=== PATIENT | female | born 1945 | race Caucasian/White ===

== ENCOUNTER 2017-04-27 08:32 | Inpatient (IN) | payer BC, OTHER ==
[2017-04-27] VITALS (7 sets, daily range): BP systolic 136–167; BP diastolic 68–81; PULSE 88–102; TEMP 36.4–37; O2SAT 98–100; Ht 157.5 cm; Wt 60.7 kg
[~2017-04-27] VITALS: Ht 157.5 cm; Wt 60.7 kg
[~2017-04-27 08:32] MED LIST: ASCO-63 PO; ASPEC81 PO; CALC500C70 PO; LEVO75TA5 PO; LOSA100T26 PO; LPT20 PO; MULT-223 PO; OMEG10007 PO; OMEP20CA59 PO; RANI300T2 PO
[2017-04-27] MEDS ORDERED: FEXO1TAB54 PO (08:55)
[2017-04-27] MEDS ORDERED: MoRPHine SULFATE 4 MG/ML 1 ML CARP\\VIAL IV STA ×2 (09:06→11:32)
[2017-04-27] MEDS ORDERED: ONDANSETRON INJ 2 MG/ML 2 ML VIAL IV STA (09:06)
[2017-04-27 10:00] LABS: BASO % 0.3 %; BASO ABS # 0.02 K/uL (0-0.2); COMPLETE YES; EOS % 1.7 %; IG% 0.1 %; LYMPH % 18.9 %; LYMPH ABS # 1.32 K/uL (1.2-3.4); MEAN CELL VOLUME 97.9 fL (80-100); MEAN CORPUSCULAR HEMOGLOBIN 33.3 pg (25-34); MEAN PLATELET VOLUME 10.9 fL (7.4-10.4); MONO % 8.9 %; NEUT % 70.1 %; PLATELET COUNT 198 K/uL (130-400); RED BLOOD COUNT 4.39 M/uL (4.2-5.4); WHITE BLOOD COUNT 6.97 K/uL (4.8-10.8)
[2017-04-27 10:06] LABS: URINE APPEARANCE CLEAR (CLEAR); URINE BILIRUBIN NEG (NEG); URINE COLOR YELLOW; URINE NITRITE NEG (NEG); URINE PH 8.5 (4.5-7.5); UROBILINOGEN NEG (NEG); ZZURINE CULT IF INDIC CATH NO
[2017-04-27 10:07] LABS: BUN/CREATININE RATIO 23.2 (10-20); CALCIUM 9.7 mg/dl (8.5-10.1); CREATININE 1.1 mg/dl (0.60-1.20); POTASSIUM 3.3 mmol/L (3.5-5.1)
[2017-04-27 10:08] LABS: PROTHROMBIN TIME (PATIENT) 10.3 SECONDS (9.0-12.0)
[2017-04-27 10:09] LABS: MANUAL MICROSCOPIC REQUIRED? NO; REVIEW REQ? NO
--- NOTE | 2017-04-27 10:32 | DIAGNOSTIC IMAGING REPORT ---
RIGHT PELVIS/UNILATERAL HIP 2-3VIEWS CLINICAL HISTORY: 71 years-old Female presenting with FALL, RIGHT HIP PAIN Right. TECHNIQUE: Single frontal view of the pelvis and frontal and crosstable lateral views of the right hip were obtained. COMPARISON: None. FINDINGS: 3 lag screw fixation of the left femoral neck. Deformity of the right femoral neck with evidence of a displaced subcapital fracture. The distal fracture fragment is displaced 10 mm anteriorly relative to the femoral head, which remains congruent within the acetabulum. There is also suggestion of impaction of the fracture site. Degenerative changes of the sacroiliac joints. Moderate stool burden. IMPRESSION: Subcapital right femoral neck fracture with displacement and impaction. Electronically signed by: Eyad Cary M.D. 04/27/2017 10:30 AM Dictated Date/Time: 04/27/2017 10:28 AM
--- NOTE | 2017-04-27 10:33 | DIAGNOSTIC IMAGING REPORT ---
CHEST ONE VIEW PORTABLE CLINICAL HISTORY: 71 years-old Female presenting with PREOP R HIP FX. TECHNIQUE: Portable supine AP view of the chest was obtained. COMPARISON: 07/31/2016. FINDINGS: Atherosclerosis of aortic arch. Cardiac silhouette normal in size. Lungs and pleural spaces clear. Degenerative changes of the thoracic spine. Upper abdomen normal. IMPRESSION: 1. No acute cardiopulmonary disease. Electronically signed by: Eyad Cary M.D. 04/27/2017 10:31 AM Dictated Date/Time: 04/27/2017 10:31 AM
--- NOTE | 2017-04-27 10:44 | EMERGENCY ROOM VISIT NOTE ---
History First contact with patient: 08:49 Chief Complaint: HIP PAIN Stated Complaint: R-HIP PAIN History of Present Illness Patient is a 71-year-old white female who presents to the emergency department by BLS ambulance for evaluation of right hip pain after a fall. Patient reports that she tripped, fell down one step, landing on her right hip on a hardwood floor. She had immediate onset of pain in her right hip. She tried to get up but was unable to, ambulance was summoned. She complains of pain in the right hip, that radiates slightly down her thighs. She rates her discomfort a 9/10. She denies any other injuries related to a fall. She did not strike her head or lose consciousness. She denies any chest or rib pain. She reports fall was purely mechanical in nature, she denies any chest pain, palpitations or shortness of breath, she reports that she was feeling well and in her usual state of health prior to the fall. She reports a remote history of a left hip fracture. Review of Systems Review of systems as per HPI. All other systems reviewed were negative. 10 systems reviewed. Past Medical/Surgical History Medical Problems: (1) CVA (cerebral vascular accident) (2) Dyslipidemia (3) Essential (Primary) Hypertension (4) GERD (gastroesophageal reflux disease) (5) Hypothyroidism Nos (6) Stroke-like symptoms Surgical Problems: (1) Status post hip surgery Electronic medical records are reviewed and summarized as above/below. See Problem List. Family History Patient reports no known family medical history. Social History Smoking Status: Never Smoker Marital Status: Housing Status: lives with significant other Occupation Status: retired Current/Historical Medications Scheduled Ascorbic Acid (Vitamin C), 500 MG PO DAILY Aspirin (Aspirin EC Low Dose), 81 MG PO QAM Atorvastatin (Atorvastatin Calcium), 20 MG PO QAM Calcium/Vitamin D (Os-Byron 500 Plus D), 1 TAB PO BID Fexofenadine Hcl (Leslye Allergy), 1 TAB PO DAILY Fish Oil ([place]-3), 1 CAP PO BID Hctz/Losartan (Hyzaar 12.5MG/100MG), 0.5 TAB PO BID Levothyroxine Sodium (Levothyroxine Sodium), 75 MCG PO DAILY Physical Exam Vital Signs Date Time Temp Pulse Resp B/P (MAP) Pulse Ox O2 Delivery O2 Flow Rate FiO2 04/27/17 10:58 173/94 04/27/17 10:57 89 14 04/27/17 10:52 86 13 04/27/17 10:47 90 12 04/27/17 10:42 89 28 04/27/17 10:37 91 22 04/27/17 10:32 92 17 04/27/17 10:27 96 17 04/27/17 10:24 173/94 04/27/17 09:57 93 16 96 04/27/17 09:52 90 20 95 04/27/17 09:50 90 16 192/100 96 04/27/17 09:49 87 04/27/17 09:46 192/100 04/27/17 08:45 199/104 04/27/17 08:42 36.7 89 16 211/107 97 Room Air Physical Exam GENERAL: Patient is an uncomfortable appearing 71-year-old white female who is awake and alert and in moderate distress due to her right hip pain. HEENT: Head - normocephalic and atraumatic. Pupils are equal, round, and reactive to light. Extraocular eye muscles are intact and sclera are anicteric. Ears - bilaterally patent canals with no evidence of hemotympanum. Mouth - moist buccal mucosa with no trauma to the teeth or signs of malocclusion. Neck: The neck is supple and there is no pain to palpation over the posterior cervical spine and no obvious step-offs or deformities. There is no JVD or tracheal deviation. Chest: There are no signs of deformities, contusions or abrasions to the chest wall. There is no obvious crepitus or paradoxical chest rise. Heart: Regular rate, and regular rhythm. Lungs: Breath sounds equal and clear to auscultation without wheezes, rales, or rhonchi heard. Abdomen: Soft, completely nontender, nondistended, with good bowel sounds. There is no sign of trauma such as contusions, abrasions or penetrations. There are no palpable pulsatile masses or hepatosplenomegaly. There is no guarding, rigidity, or rebound noted. Extremities: Examination of the right hip shows the patient resting with the right hip and knee flexed, right leg is supported on a pillow. She has some tenderness over the greater trochanter and the right groin. When able to fully extend the leg, the right leg is slightly shortened. The right lower extremity is neurovascularly intact. No other obvious trauma, deformities, contusions, or edema. There are easily palpable peripheral pulses. Neuro: The patient is awake and alert and easily able to follow commands. Muscle strength is 5 out of 5 3 extremities. Otherwise, neuro exam is unremarkable. Back: The entire thoracic, lumbar, and sacral spine were palpated. No discomfort over the thoracic spine and lumbar spine. There are no obvious step- offs or deformities noted. There are no obvious signs of trauma such as contusions abrasions penetrations noted to the back. Medical Decision & Procedures ER Provider Diagnostic Interpretation: RIGHT PELVIS/UNILATERAL HIP 2-3VIEWS CLINICAL HISTORY: 71 years-old Female presenting with FALL, RIGHT HIP PAIN Right. TECHNIQUE: Single frontal view of the pelvis and frontal and crosstable lateral views of the right hip were obtained. COMPARISON: None. FINDINGS: 3 lag screw fixation of the left femoral neck. Deformity of the right femoral neck with evidence of a displaced subcapital fracture. The distal fracture fragment is displaced 10 mm anteriorly relative to the femoral head, which remains congruent within the acetabulum. There is also suggestion of impaction of the fracture site. Degenerative changes of the sacroiliac joints. Moderate stool burden. IMPRESSION: Subcapital right femoral neck fracture with displacement and impaction. CHEST ONE VIEW PORTABLE CLINICAL HISTORY: 71 years-old Female presenting with PREOP R HIP FX. TECHNIQUE: Portable supine AP view of the chest was obtained. COMPARISON: 07/31/2016. FINDINGS: Atherosclerosis of aortic arch. Cardiac silhouette normal in size. Lungs and pleural spaces clear. Degenerative changes of the thoracic spine. Upper abdomen normal. IMPRESSION: 1. No acute cardiopulmonary disease. Laboratory Results 04/27/17 09:35 Red Blood Count 4.39, Mean Corpuscular Volume 97.9, Mean Corpuscular Hemoglobin 33.3, Mean Corpuscular Hemoglobin Concent 34.0, Mean Platelet Volume 10.9, Neutrophils (%) (Auto) 70.1, Lymphocytes (%) (Auto) 18.9, Monocytes (%) (Auto) 8.9, Eosinophils (%) (Auto) 1.7, Basophils (%) (Auto) 0.3, Neutrophils # (Auto) 4.88, Lymphocytes # (Auto) 1.32, Monocytes # (Auto) 0.62, Eosinophils # (Auto) 0.12, Basophils # (Auto) 0.02 04/27/17 09:35 Test 04/27/17 09:15 04/27/17 09:35 Urine Color YELLOW Urine Appearance CLEAR (CLEAR) Urine pH 8.5 (4.5-7.5) Urine Specific [place] 1.010 (1.000-1.030) Urine Protein NEG (NEG) Urine Glucose (UA) NEG (NEG) Urine Ketones NEG (NEG) Urine Occult Blood NEG (NEG) Urine Nitrite NEG (NEG) Urine Bilirubin NEG (NEG) Urine Urobilinogen NEG (NEG) Urine Leukocyte Esterase NEG (NEG) White Blood Count 6.97 K/uL (4.8-10.8) Red Blood Count 4.39 M/uL (4.2-5.4) Hemoglobin 14.6 g/dL (12.0-16.0) Hematocrit 43.0 % (37-47) Mean Corpuscular Volume 97.9 fL (80-100) Mean Corpuscular Hemoglobin 33.3 pg (25-34) Mean Corpuscular Hemoglobin Concent 34.0 g/dl (32-36) Platelet Count 198 K/uL (130-400) Mean Platelet Volume 10.9 fL (7.4-10.4) Neutrophils (%) (Auto) 70.1 % Lymphocytes (%) (Auto) 18.9 % Monocytes (%) (Auto) 8.9 % Eosinophils (%) (Auto) 1.7 % Basophils (%) (Auto) 0.3 % Neutrophils # (Auto) 4.88 K/uL (1.4-6.5) Lymphocytes # (Auto) 1.32 K/uL (1.2-3.4) Monocytes # (Auto) 0.62 K/uL (0.11-0.59) Eosinophils # (Auto) 0.12 K/uL (0-0.5) Basophils # (Auto) 0.02 K/uL (0-0.2) RDW Standard Deviation 45.1 fL (36.4-46.3) RDW Coefficient of Variation 12.5 % (11.5-14.5) Immature Granulocyte % (Auto) 0.1 % Immature Granulocyte # (Auto) 0.01 K/uL (0.00-0.02) Prothrombin Time 10.3 SECONDS (9.0-12.0) Prothromb Time International Ratio 1.0 (0.9-1.1) Activated Partial Thromboplast Time 26.2 SECONDS (21.0-31.0) Partial Thromboplastin Ratio 1.0 Anion Gap 6.0 mmol/L (3-11) Est Creatinine Clear Calc Drug Dose 39.1 ml/min Estimated GFR () 57.7 Estimated GFR (Non- 49.8 BUN/Creatinine Ratio 23.2 (10-20) Calcium Level 9.7 mg/dl (8.5-10.1) Medications Administered Medications (Trade) Dose Ordered Sig/Migdalia Route Start Time Stop Time Status Last Admin Dose Admin Ondansetron HCl (Zofran Inj) 4 mg NOW STAT IV 04/27/17 09:06 04/27/17 09:09 DC 04/27/17 09:51 4 MG Morphine Sulfate (MoRPHine SULFATE INJ) 4 mg NOW STAT IV 04/27/17 09:06 04/27/17 09:09 DC 04/27/17 09:51 4 MG ED Course The patient was seen and assessed as above. Her old records were reviewed. IV lock was initiated. Laboratory studies were collected. She was medicated with Zofran 4 mg and morphine 4 mg IV for pain with good relief. X-rays of the right hip and pelvis were obtained, findings are consistent with a slightly displaced, impacted subcapital right femoral neck fracture. Patient was reviewed with attending physician. Consultation was placed with the [place] Hospitalist service for admission, Dr. Khan. Patient was also reviewed with orthopedic surgery on-call, Dr. Newton. The patient was medically cleared, and felt to be stable for surgery. The patient will be taken to the OR per orthopedics later today. The patient did receive an additional dose of morphine 4 mg IV for increased pain prior to admission. Medical Decision Patient is a 71-year-old white female who sustained a mechanical fall resulting in a right hip fracture. Differential diagnoses included hip versus pelvic fracture, hip dislocation, femur fracture, contusion, among others. Medication Reconcilliation Current Medication List: was personally reviewed by me Blood Pressure Screening Patient's blood pressure: Elevated blood pressure Blood pressure disposition: Elevated BP felt to be situational Impression Primary Impression: Subcapital fracture of right hip Departure Information Referrals Jose Guadalupe Collins M.D. (PCP) Patient Instructions My [facility] Problem Qualifiers Primary Impression: Subcapital fracture of right hip Encounter type: initial encounter Fracture type: closed Qualified Codes: S72.011A - Unspecified intracapsular fracture of right femur, initial encounter for closed fracture
--- NOTE | 2017-04-27 10:46 | EMERGENCY ROOM VISIT NOTE ---
ED Visit Note First contact with patient: 08:49 HPI: right hip pain after fall. PE: AFVSS, NAD NC/AT RRR, no murmurs CTAB Abd soft NT/ND Ext: right hip pain, No obvious deformity or shortening. ROM limited 2/2 pain. Distal pms intact. Neuro: grossly intact Plan: right hip fx. Ortho consult. admit. I reviewed the patient's past medical history, medications, and visit nursing notes. I discussed the case with the physician residential real estate assistant, examined the patient, and agree with the findings and plan as documented in the physician assistants note.
[2017-04-27] MEDS ORDERED: MAGNESIUM HYDROXIDE SUSP 30 ML UDC PO PRN ×2 (11:15→15:45)
[2017-04-27] MEDS ORDERED: ONDANSETRON INJ 2 MG/ML 2 ML VIAL IV PRN ×2 (11:15→16:00)
[2017-04-27] MEDS ORDERED: ACETAMINOPHEN 325 MG TAB PO PRN (11:15)
--- NOTE | 2017-04-27 11:20 | History and Physical ---
History & Physical Date & Time of Service: Apr 27, 2017 at 11:10 Chief Complaint: R-Hip Pain Primary Care Physician: Jose Guadalupe Collins M.D. History of Present Illness Source: patient 71 y/o F c/o R hip pain. Pt states she was having a completely usual day for herself when she missed a step and fell. She states this was purely a mechanical fall. She had no lightheadedness, dizziness, changes in vision or orientation prior to this fall. She states she has felt in her usual health the last few days and has been eating well. Pt denies fever, SOB, chest pain, abd pain, n/v/c/d, LE swelling. Pt states she generally has no issues with walking and can walk a flight of stairs without issue. Pt takes daily aspirin s/p TIA last year, but has not taken it yet today. Her last dose was yesterday. Pt has not taken her AM BP medication either. Pt has not eaten yet today. Past Medical/Surgical History Hx of TIA, on aspirin HTN Hypothyroid Hyperlipidemia Pre-DM, no medications Allergies Family History Patient reports no known family medical history. Father: [place] Mother: CVA, ESRD Social History Smoking Status: Never Smoker Alcohol Use: none Drug Use: none Marital Status: Housing status: lives with family Occupational Status: retired Multi-Drug Resistant Organisms History of MDRO: No Allergies Coded Allergies: No Known Allergies (Verified , 04/27/17) Home Medications Scheduled Ascorbic Acid (Vitamin C), 500 MG PO DAILY Aspirin (Aspirin EC Low Dose), 81 MG PO QAM Atorvastatin (Atorvastatin Calcium), 20 MG PO QAM Calcium/Vitamin D (Os-Byron 500 Plus D), 1 TAB PO BID Fexofenadine Hcl (Leslye Allergy), 1 TAB PO DAILY Fish Oil ([place]-3), 1 CAP PO BID Hctz/Losartan (Hyzaar 12.5MG/100MG), 0.5 TAB PO BID Levothyroxine Sodium (Levothyroxine Sodium), 75 MCG PO DAILY Review of Systems Pertinent positives and negatives reviewed in HPI--all others negative Physical Exam Vital Signs Date Time Temp Pulse Resp B/P (MAP) Pulse Ox O2 Delivery O2 Flow Rate FiO2 04/27/17 10:58 173/94 04/27/17 10:57 89 14 04/27/17 10:52 86 13 04/27/17 10:47 90 12 04/27/17 10:42 89 28 04/27/17 10:37 91 22 04/27/17 10:32 92 17 04/27/17 10:27 96 17 04/27/17 10:24 173/94 04/27/17 09:57 93 16 96 04/27/17 09:52 90 20 95 04/27/17 09:50 90 16 192/100 96 04/27/17 09:49 87 04/27/17 09:46 192/100 04/27/17 08:45 199/104 04/27/17 08:42 36.7 89 16 211/107 97 Room Air General Appearance: WD/WN, no apparent distress Head: normocephalic, atraumatic Eyes: normal inspection, EOMI ENT: hearing grossly normal Neck: supple Respiratory/Chest: normal breath sounds, no respiratory distress Cardiovascular: regular rate, rhythm, no edema Abdomen/GI: non tender, soft Extremities/Musculoskelatal: no calf tenderness, no pedal edema Neurologic/Psych: alert, normal mood/affect, oriented x 3 Skin: normal color, warm/dry Diagnostics Laboratory Results Results Past 24 Hours Test 04/27/17 09:15 04/27/17 09:35 Range/Units Urine Color YELLOW Urine Appearance CLEAR CLEAR Urine pH 8.5 4.5-7.5 Urine Specific [place] 1.010 1.000-1.030 Urine Protein NEG NEG Urine Glucose (UA) NEG NEG Urine Ketones NEG NEG Urine Occult Blood NEG NEG Urine Nitrite NEG NEG Urine Bilirubin NEG NEG Urine Urobilinogen NEG NEG Urine Leukocyte Esterase NEG NEG White Blood Count 6.97 4.8-10.8 K/uL Red Blood Count 4.39 4.2-5.4 M/uL Hemoglobin 14.6 12.0-16.0 g/dL Hematocrit 43.0 37-47 % Mean Corpuscular Volume 97.9 80-100 fL Mean Corpuscular Hemoglobin 33.3 25-34 pg Mean Corpuscular Hemoglobin Concent 34.0 32-36 g/dl Platelet Count 198 130-400 K/uL Mean Platelet Volume 10.9 7.4-10.4 fL Neutrophils (%) (Auto) 70.1 % Lymphocytes (%) (Auto) 18.9 % Monocytes (%) (Auto) 8.9 % Eosinophils (%) (Auto) 1.7 % Basophils (%) (Auto) 0.3 % Neutrophils # (Auto) 4.88 1.4-6.5 K/uL Lymphocytes # (Auto) 1.32 1.2-3.4 K/uL Monocytes # (Auto) 0.62 0.11-0.59 K/uL Eosinophils # (Auto) 0.12 0-0.5 K/uL Basophils # (Auto) 0.02 0-0.2 K/uL RDW Standard Deviation 45.1 36.4-46.3 fL RDW Coefficient of Variation 12.5 11.5-14.5 % Immature Granulocyte % (Auto) 0.1 % Immature Granulocyte # (Auto) 0.01 0.00-0.02 K/uL Prothrombin Time 10.3 9.0-12.0 SECONDS Prothromb Time International Ratio 1.0 0.9-1.1 Activated Partial Thromboplast Time 26.2 21.0-31.0 SECONDS Partial Thromboplastin Ratio 1.0 Sodium Level 140 136-145 mmol/L Potassium Level 3.3 3.5-5.1 mmol/L Chloride Level 104 98-107 mmol/L Carbon Dioxide Level 30 21-32 mmol/L Anion Gap 6.0 3-11 mmol/L Blood Urea Nitrogen 26 7-18 mg/dl Creatinine 1.10 0.60-1.20 mg/dl Est Creatinine Clear Calc Drug Dose 39.1 ml/min Estimated GFR () 57.7 Estimated GFR (Non- 49.8 BUN/Creatinine Ratio 23.2 10-20 Random Glucose 113 70-99 mg/dl Calcium Level 9.7 8.5-10.1 mg/dl Diagnostic Radiology Hip/pelvis XR: IMPRESSION: Subcapital right femoral neck fracture with displacement and impaction. CXR normal EKG Incomplete RBBB, seen as far back as at least 2008 on prior EKG Impression Assessment and Plan 71 y/o F who was admitted on 04/27 for R hip fracture s/p mechanical fall. R hip fracture: as per ortho Last aspirin dose was 04/26, will hold this Holding fish oil as well Last PO was yesterday Ortho to be made aware of this Will hold diet for now so that pt can be taken to OR if able Fall: mechanical PT/OT after OR HTN: Labile in the setting of pain and had not taken AM medication Give losartan now and monitor EKG: incomplete RBBB, seen on prior EKG HypoK: Replace and monitor Hx of TIA: holding aspirin as above Restart per ortho Hyperlipidemia: continue home meds Hypothyroid: continue home meds Other: Full code NPO until known OR status DVT proph as per ortho Level of Care Med/Surg Advanced Directives Existing Living Will: Yes Resuscitation Status FULL RESUSCITATION VTE Prophylaxis VTE Risk Assessment Done? Y/N: Yes Risk Level: Low
--- NOTE | 2017-04-27 12:25 | ORTHOPEDIC CONSULTATION ---
DATE OF ADMISSION: 04/27/2017 CHIEF COMPLAINT: Right hip pain. HISTORY OF PRESENT ILLNESS: The patient is a 71-year-old female with history of TIAs in the past, who sustained a mechanical fall earlier today. She was at [employer] when she made a misstep and she fell to the ground. She had acute onset of pain and was unable to ambulate. She was brought to the Emergency Room. X-rays revealed displaced femoral neck fracture. She was seen and admitted by the hospitalist service and we were consulted for treatment. She has no preexisting hip pain. She does have a history of TIAs without sequelae. She also has a history of a left hip fracture fixed 17 years ago, she thinks by Dr. Kumar. Denies any other injuries. No head injury, no loss of consciousness, and no neck pain. She does take aspirin for TIA. PAST MEDICAL HISTORY: Past medical history significant for, 1. Hypertension. 2. Elevated cholesterol. 3. Hypothyroidism. 4. History of TIA in the past without sequelae. 5. Prediabetes. PAST SURGICAL HISTORY: Include: 1. Left hip fracture fixed 17 years ago. 2. Multiple foot surgeries. 3. D&C. ALLERGIES: No known drug allergies. CURRENT MEDICINES: Include, 1. Vitamin C. 2. Baby aspirin. 3. Atorvastatin. 4. Calcium with D. 5. Leslye. 6. Fish oil. 7. Hyzaar. 8. Levothyroxine. Remainder of the history is per the admission H&P. PHYSICAL EXAMINATION: GENERAL: Shows a pleasant, healthy, thin appearing elderly female. She is in the ER with her 2 daughters. VITAL SIGNS: Temperature of 36.7. Vital signs are stable. Blood pressure is slightly elevated at 155/90. HEENT: Benign. NECK: Supple. No lymphadenopathy. LUNGS: Clear to auscultation. HEART: Regular rate and rhythm. ABDOMEN: Soft, nontender, and nondistended. EXTREMITIES: Grossly neurovascularly intact except as follows. General musculoskeletal exam reveals painless range of motion of the cervical and thoracic and lumbar spine. She had full painless range of motion of both shoulders, wrists, elbows, hands and left leg. Examination of the right leg reveals her leg to be slightly shortened. This is really not malrotated. She has got hold it in a slightly flexed position. Any pain causes significant pain. She has no knee effusion. No abrasions. She can dorsiflex and plantarflex her foot appropriately. X-RAYS: X-rays of the right hip were reviewed. It shows a right displaced femoral neck fracture. She has got no signs of significant hip arthritis. She does have a screw fixation of the left hip. The fracture is displaced. ASSESSMENT: A 71-year-old female, independent ambulator with a right displaced femoral neck fracture. No preexisting hip arthritis. PLAN: We talked about treatment options. We are going to take her to the operating room and do a right cemented bipolar hip arthroplasty. The risks and benefits of this procedure were explained to the patient to include, but not limited to DVT, PE, , infection, neurological injury, vascular injury, bleeding problem, pain, limited range of motion, stiffness, failure to relief her symptoms, incomplete relief of symptoms, need for further surgery in the future, fracture, leg length inequality, nerve palsy, dislocation, need for blood transfusion, etc. The patient and family understand and desire to proceed. Informed consent was obtained. We will plan on DVT prophylaxis including thigh-high TEDs, SCDs, and probably increase her dose of aspirin postoperatively. We will hold her aspirin for now. She has been seen by the medicine service and cleared. We will plan on doing this later on this afternoon if possible.
[2017-04-27] MEDS ORDERED: BACITRACIN 50000 UNIT VIAL ONE (13:00)
[2017-04-27] MEDS ORDERED: BUPIVACAINE/EPINEPHRINE 0.5% MPF 1:200,000 30 ML VIAL ONE (13:00)
[2017-04-27] MEDS ORDERED: THROMBIN FOR SOLN 20000 UNIT KIT ONE (13:00)
[2017-04-27] MEDS ORDERED: LOSARTAN POTASSIUM 50 MG TAB PO ONE (13:00)
[2017-04-27] MEDS: HYDROCHLOROTHIAZIDE 25 MG TAB PO SCH ×2 (13:04→20:33)
[2017-04-27] MEDS ORDERED: MIDAZOLAM HCL 1 MG/ML 2ML VIAL ONE ×2 (13:32)
[2017-04-27] MEDS ORDERED: PNEUMOCOCCAL POLYSACCHARIDES 25 MCG/0.5 ML VIAL/SYR IM. ONE (14:15)
[2017-04-27] MEDS ORDERED: PNEUMOCOCCAL ADMINISTRATION CHARGE ONE (14:15)
[2017-04-27] MEDS ORDERED: PROPOFOL IV EMULSION 10 MG/ML 20 ML VIAL IV ONE (14:26)
--- NOTE | 2017-04-27 15:40 | [facility] Post Operative Brief Note ---
Immediate Operative Summary Operative Date Apr 27, 2017. Pre-Operative Diagnosis right displaced femoral neck fracture Post-Operative Diagnosis right displaced femoral neck fracture Procedure(s) Performed Right hip bi-polar arthroplasty; cemented Surgeon Dr. Eugene Newton Development Technical Lead Surgeon(s) Floyd Lopez PA-C Estimated Blood Loss 300 ML Findings Right femoral neck fracture - displaced Fluids (cc crystalloids) 1300 cc Specimens a. right femoral head Drains None Anesthesia Spinal Complication(s) None Disposition Recovery Room / PACU
[2017-04-27] MEDS ORDERED: BISACODYL 10 MG SUPP PR PRN (15:45)
--- NOTE | 2017-04-27 15:54 | Anesthesiology Progress Note ---
Anesthesia Post Op Note Date & Time Apr 27, 2017 at 15:53 Vital Signs Pain Intensity: 9.0 Vital Signs Past 12 Hours Date Time Temp Pulse Resp B/P (MAP) Pulse Ox O2 Delivery O2 Flow Rate FiO2 04/27/17 12:35 36.8 98 16 136/81 Room Air 04/27/17 12:15 36.8 99 16 136/81 (99) Room Air 04/27/17 11:44 99 20 155/94 98 Room Air 04/27/17 10:58 173/94 04/27/17 10:57 89 14 04/27/17 10:52 86 13 04/27/17 10:47 90 12 04/27/17 10:42 89 28 04/27/17 10:37 91 22 04/27/17 10:32 92 17 04/27/17 10:27 96 17 04/27/17 10:24 173/94 04/27/17 09:57 93 16 96 04/27/17 09:52 90 20 95 04/27/17 09:50 90 16 192/100 96 04/27/17 09:49 87 04/27/17 09:46 192/100 04/27/17 08:45 199/104 04/27/17 08:42 36.7 89 16 211/107 97 Room Air Notes Mental Status: alert / awake / arousable, participated in evaluation Pt Amnestic to Procedure: Yes Nausea / Vomiting: adequately controlled Pain: adequately controlled Airway Patency, RR, SpO2: stable & adequate BP & HR: stable & adequate Hydration State: stable & adequate Neuraxial Anesthesia: was administered, sensory block is resolving Anesthetic Complications: no major complications apparent
[2017-04-27] MEDS ORDERED: EpHEDrine SULFATE INJ 50 MG/ML AMP IV PRN (16:00)
[2017-04-27] MEDS ORDERED: ATROPINE SULFATE 0.1 MG/ML 5ML SYR IV PRN (16:00)
[2017-04-27] MEDS ORDERED: FENTANYL CITRATE INJ 50 MCG/1 ML 2 ML VIAL IV PRN (16:00)
--- NOTE | 2017-04-27 16:22 | DIAGNOSTIC IMAGING REPORT ---
RIGHT HIP UNILATERAL 2 VIEWS CLINICAL HISTORY: 71 years-old Female presenting with Right Bipolar hip Right. TECHNIQUE: Frontal and crosstable lateral views of the right hip were obtained. COMPARISON: Plain radiographs from 04/27/2017 at 10:12 AM. FINDINGS: There has been interval total right hip arthroplasty for the subcapital right femoral neck fracture. No hardware complication, malalignment, or new fracture is evident. Expected soft tissue emphysema and overlying skin courtney. IMPRESSION: Expected postsurgical appearance status post total right hip arthroplasty. Electronically signed by: Eyad Cary M.D. 04/27/2017 4:20 PM Dictated Date/Time: 04/27/2017 4:19 PM
--- NOTE | 2017-04-27 17:10 | OPERATIVE REPORT ---
DATE OF OPERATION: 04/27/2017 SURGEON: Dr. Eugene Newton. RAIL SWITCHMAN: WILBERTO Vinson PREOPERATIVE DIAGNOSIS: Right displaced femoral neck fracture. POSTOPERATIVE DIAGNOSIS: Same. PROCEDURE PERFORMED: Right cemented bipolar hip arthroplasty. COMPLICATIONS: None. ESTIMATED BLOOD LOSS: 300 mL. FLUID REPLACEMENT: 1300 mL crystalloid fluid replacement. ANESTHESIA: Spinal. DRAINS: None. SPECIMENS: Right femoral head sent for pathology. OPERATIVE INDICATIONS: The patient is a 71-year-old female who sustained a mechanical fall while at [facility] this morning. She had no preexisting hip pain. She is an independent ambulator. She does have a history of some TIAs in the past with no sequelae. She was seen in the Emergency Room and diagnosed with a displaced femoral neck fracture. She is cleared by medicine service and indicated for surgical treatment. OPERATIVE IMPLANTS: Operative implants consisted of: 1. Biomet generation 4, size 9 polished femoral stem. 2. A 0/28 mm articular ball. 3. A 45-mm bipolar shell and liner. 4. A size 10 centralizer. 5. Small cement restrictor. OPERATIVE PROCEDURE: The patient was taken to the operating room, identified and placed on the operating table in the supine position. All contact areas were appropriately padded. IV antibiotics were provided by anesthesia team. A spinal anesthetic was implemented by anesthesia team. The patient was then placed in the left lateral decubitus position. An axillary roll was placed. Stulberg hip positioner was used for positioning. Right hip and leg were then prepped and draped in the usual sterile fashion. I did scrub the leg with Hibiclens before prepping with ChloraPrep. The right leg was then prepped and draped in the usual sterile fashion. A posterolateral approach to the right hip was then performed through a curvilinear incision centered over the greater trochanter. Sharp dissection was carried through the subcutaneous tissue down to the level of the IT band and gluteal fascia. The IT band and gluteal fascia were then incised longitudinally in line with the skin incision. The underlying greater trochanteric bursa was excised. The piriformis and external rotators were tagged and taken off the posterior aspect of the femur. Great care was taken throughout the procedure to protect the sciatic nerve at all times. A posterior capsulotomy was then performed leaving a flap for later repair. I tagged each side of the capsule. Hip was internally rotated. Femoral neck osteotomy cut was then made just below the base of the fracture. The remaining portion of the femoral neck as well as the femoral head were removed. The acetabulum was sized to a size 45. Attention was then drawn back to the femur. The proximal femur was entered with cookie cutter followed by canal finder and lateralizing reamer. We broached beginning with a size 7 and progressed to an 8. The femur was pretty small, so I trialed the knee. The trial really created appropriate soft tissue tension and leg lengths. It was fully stable in full extension and external rotation and flexion to 90 degrees and internal rotation to 50+ degrees. I then removed these implants. I then did broach up to a size 9, but could not quite get that down. Her femur was pretty small. I then irrigated it extensively. I did place a cement restrictor 14 cm down the canal. I then got out the implants. I did place them in the canal to make sure they fit and then I cleaned it and dried it off. A double batch of Palacos G cement was mixed. I then injected the canal with the cement and a size 9 polished standard offset femoral stem was placed with a 10 centralizer. Of note, the patient did have marked anteversion natively of the femoral neck and we put this directly in line with her normal anteversion. Once the cement hardened, a size 0/28-mm articular ball was placed followed by 45 bipolar shell and liner. The hip was located and again found to be stable. Attention was then drawn toward closing. The wound was injected with 30 mL of 0.5% Marcaine with epinephrine. The posterior capsule was then repaired with #2 Ti-Cron suture. The external rotators were repaired to the posterior aspect of the hip abductors with #2 Ti-Cron suture. The IT band and gluteal fascia were then closed with #1 PDS suture in running fashion. The subcutaneous tissues were then closed with 2 layers with the deep layer #1 Vicryl suture and the subcutaneous tissues with 2-0 Dexon suture in a buried interrupted fashion. The skin was then closed with skin courtney. The leg was then cleaned and dried and a sterile dressing composed of Xeroform, 4 x 4, ABD pad and foam tape was applied. The patient then transferred to the recovery room in stable condition. The patient tolerated the procedure well with no complications. All needle and sponge counts were correct at the end of the operation. I attest to the content of the Intraoperative Record and any orders documented therein. Any exception s are noted below.
[2017-04-27] MEDS ORDERED: NURSING VERBAL MED ORDER ONE (17:45)
[2017-04-27] MEDS ORDERED: POTASSIUM CHLORIDE INJ 10 MEQ in SODIUM CHLORIDE 0.9% 1000ML 1,000 ML IV SCH (18:00)
[2017-04-27] MEDS: CEFAZOLIN IV 1,000 MG in DEXTROSE 5% 50ML 50 ML IV SCH (20:30)
[2017-04-27] MEDS: LOSARTAN POTASSIUM 50 MG TAB PO SCH (20:34)
[2017-04-27] MEDS ORDERED: ASPIRIN/ALUM/MAGNES/CAL CARB 325 MG TAB PO SCH (21:00)
[2017-04-27] MEDS: POTASSIUM CHLORIDE 20 MEQ TABCR PO SCH (21:25)
[2017-04-27] MEDS: OXYCODONE HCL IR 5 MG TAB (IMMEDIATE RELEASE) PO PRN (21:28)
[2017-04-28] VITALS (9 sets, daily range): BP systolic 94–153; BP diastolic 59–82; PULSE 101–124; TEMP 36.8–38.1; O2SAT 95–100
[2017-04-28] MEDS: CEFAZOLIN IV 1,000 MG in DEXTROSE 5% 50ML 50 ML IV SCH (04:38)
[2017-04-28] MEDS: OXYCODONE HCL IR 5 MG TAB (IMMEDIATE RELEASE) PO PRN ×3 (04:39→10:42)
[2017-04-28 05:47] LABS: HEMATOCRIT 41.2 % (37-47); MEAN CORPUSCULAR HEMOGLOBIN 32.7 pg (25-34); MEAN PLATELET VOLUME 11.1 fL (7.4-10.4); PLATELET COUNT 160 K/uL (130-400); RED BLOOD COUNT 4.16 M/uL (4.2-5.4); WHITE BLOOD COUNT 11.96 K/uL (4.8-10.8)
[2017-04-28] MEDS: LEVOTHYROXINE 75 MCG TAB PO SCH (06:14)
[2017-04-28 06:18] LABS: BUN/CREATININE RATIO 17.2 (10-20); CREATININE 1.1 mg/dl (0.60-1.20); POTASSIUM 3.8 mmol/L (3.5-5.1)
[2017-04-28] MEDS ORDERED: NURSING VERBAL MED ORDER ONE (07:45)
--- NOTE | 2017-04-28 08:02 | PROGRESS NOTE ---
DATE: 04/28/2017 SUBJECTIVE: A 71-year-old female postop day 1 from right cemented bipolar hip arthroplasty for fracture. She is doing well. Hip is sore, but pain is controlled. Denies any chest pain or shortness of breath. Not feeling dizzy or lightheaded. No new aches or pains. OBJECTIVE: VITAL SIGNS: Temperature is 37.3. Vital signs stable. PHYSICAL EXAMINATION: GENERAL: Reveals a pleasant elderly female. Lying in bed and looks quite comfortable. She is awake, alert and oriented. EXTREMITIES: Examination of the right hip reveals leg lengths to be equal. Some mild thigh swelling. Dressing is clean, dry and intact. She can dorsiflex and plantarflex her foot appropriately. She is neurologically intact. LABORATORY DATA: Hemoglobin 13.6. Hematocrit 41.2. White cell count 11.96. Electrolytes are stable. ASSESSMENT: A 71-year-old female postop day 1 from right cemented bipolar hip arthroplasty for fracture. She is doing pretty well. Hip is located. She is neurologically intact. White cell count is slightly elevated, likely related to stress. No signs of infection. PLAN: 1. DVT prophylaxis including thigh-high TEDs, SCDs, and we are going to put on aspirin twice a day, especially with her history of TIA. 2. PT/OT. She can weightbear as tolerated. Right total hip protocol. 3. Pain control, doing pretty well with current pain regimen. 4. Medical management as per the medicine service. 5. Disposition: She is orthopedically stable and acceptable for discharge. She is wanting to go to rehabilitation and that could be done any time when medically stable. I need to see her back 2 weeks postop. Any orthopedic questions can be directed to me at [phone].
[2017-04-28] MEDS: HYDROCHLOROTHIAZIDE 25 MG TAB PO SCH ×2 (09:14→10:37)
[2017-04-28] MEDS: ATORVASTATIN 20 MG TAB PO SCH ×2 (09:15→12:05)
[2017-04-28] MEDS: ASPIRIN 325 MG ECTAB PO SCH ×3 (09:15→20:51)
[2017-04-28] MEDS: FEXOFENADINE HCL 60 MG TAB PO SCH ×2 (09:15→12:05)
[2017-04-28] MEDS: LOSARTAN POTASSIUM 50 MG TAB PO SCH ×2 (09:15→10:36)
[2017-04-28] MEDS: POTASSIUM CHLORIDE 20 MEQ TABCR PO SCH ×3 (09:15→20:51)
--- NOTE | 2017-04-28 11:43 | Hospitalist Progress Note ---
Hospitalist Progress Note Date of Service Apr 28, 2017. (Aaliyah Guerrero ., PA-C) Subjective Pt evaluation today including: conversation w/ patient, conversation w/ family (daughter at bedside ), physical exam, lab review, review of studies, review of inpatient medication list Voiding: alegria catheter in place Patient states she is feeling well. Pain is currently well controlled. +lightheadedness/dizziness. Had a near syncopal event this AM while getting up with nurses. BP was low sbp in 90s per daughter. No similar experiences in the past. Eating and drinking OK. +flatus, no BM postop. Patient denies any fever, chills, sweats, vision changes, CP, palpitations, edema, SOB, wheezing, cough, abdominal pain, nausea, vomiting, diarrhea, urinary symptoms, melena, numbness/tingling, weakness, muscle/joint pain, anxiety/depression, active bleeding, or new skin discoloration/changes. (Aaliyah Guerrero ., PA-C) Medications Current Inpatient Medications Medications (Trade) Dose Ordered Sig/Migdalia Route Start Time Stop Time Status Last Admin Dose Admin Acetaminophen (Tylenol Tab) 650 mg Q4H PRN PO 04/27/17 11:15 05/27/17 11:14 Ondansetron HCl (Zofran Inj) 4 mg Q6H PRN IV 04/27/17 11:15 05/27/17 11:14 Atorvastatin Calcium (Lipitor Tab) 20 mg QAM PO 04/28/17 09:00 05/28/17 08:59 Fexofenadine HCl (Leslye Tab) 60 mg DAILY PO 04/28/17 09:00 05/28/17 08:59 Levothyroxine Sodium (Synthroid Tab) 75 mcg DAILYBB PO 04/28/17 06:00 05/28/17 05:59 04/28/17 06:14 75 MCG Hydrochlorothiazide (Hydrochlorothiazide Tab) 6.25 mg BID PO 04/27/17 13:00 05/27/17 12:59 04/28/17 10:37 6.25 MG Potassium Chloride (Klor-Con Tab) 20 meq BID PO 04/27/17 21:00 05/27/17 20:59 04/28/17 10:38 20 MEQ Losartan Potassium (coZAAR TAB) 50 mg BID PO 04/27/17 21:00 05/27/17 20:59 04/28/17 10:36 50 MG Oxycodone HCl (Roxicodone Immediate Rel Tab) 5 mg Q4H PRN PO 04/27/17 15:45 05/11/17 15:44 04/28/17 10:42 5 MG Polyethylene (Miralax Powder Packet) 17 gm Q6 PO 04/29/17 06:00 05/29/17 05:59 Magnesium Hydroxide (Milk Of Magnesia Susp) 30 ml DAILY PRN PO 04/27/17 15:45 05/27/17 15:44 Bisacodyl (Dulcolax Supp) 10 mg DAILY PRN VT 04/27/17 15:45 05/27/17 15:44 Aspirin (Ecotrin Tab) 325 mg BID PO 04/28/17 09:00 05/28/17 08:59 04/28/17 10:35 325 MG (Aaliyah Guerrero, WILBERTO-George) Objective Vital Signs Date Time Temp Pulse Resp B/P (MAP) Pulse Ox O2 Delivery O2 Flow Rate FiO2 04/28/17 06:57 37.3 109 16 145/72 (96) 96 Room Air 04/28/17 04:25 107 04/28/17 04:10 37.1 124 16 134/82 (99) 96 Room Air 04/28/17 00:10 Room Air 04/27/17 23:10 37.0 102 16 167/77 (107) 99 Room Air 04/27/17 20:00 36.8 94 16 149/73 (98) 98 Nasal Cannula 2.0 04/27/17 18:45 36.9 88 16 153/68 (96) 100 Nasal Cannula 2.0 04/27/17 17:45 36.4 96 16 153/81 (105) 100 Nasal Cannula 2.0 04/27/17 17:06 Nasal Cannula 2.0 04/27/17 17:00 100 Nasal Cannula 2.0 Oxymask 04/27/17 16:30 88 16 143/62 100 Nasal Cannula 2 Oxymask 04/27/17 16:20 36.5 94 17 132/56 100 Nasal Cannula 2 Oxymask 04/27/17 16:10 94 15 136/60 100 Nasal Cannula 2 Oxymask 04/27/17 16:00 83 14 140/66 100 Oxymask 8 04/27/17 15:50 85 16 122/56 100 Oxymask 8 04/27/17 15:42 36.1 97 16 114/71 100 Oxymask 8 04/27/17 12:35 36.8 98 16 136/81 Room Air 04/27/17 12:15 36.8 99 16 136/81 (99) Room Air 04/27/17 11:44 99 20 155/94 98 Room Air (Aaliyah Guerrero PA-C) Physical Exam General Appearance: no apparent distress Eyes: normal inspection, PERRL ENT: hearing grossly normal Neck: supple Respiratory/Chest: lungs clear, no respiratory distress, no accessory muscle use Cardiovascular: + tachycardia (rhythm regular ) Abdomen: normal bowel sounds, non tender, soft Extremities: no pedal edema, no calf tenderness, + pertinent finding (TEDs/ SCDs on ) Neurologic/Psychiatric: alert, normal mood/affect, oriented x 3 Skin: normal color, warm/dry, no rash (Aaliyah Guerrero PA-C) Laboratory Results Last 24 Hours Test 04/27/17 17:04 04/27/17 21:15 04/28/17 05:19 04/28/17 08:18 Bedside Glucose 65 mg/dl 90 mg/dl 90 mg/dl White Blood Count 11.96 K/uL Red Blood Count 4.16 M/uL Hemoglobin 13.6 g/dL Hematocrit 41.2 % Mean Corpuscular Volume 99.0 fL Mean Corpuscular Hemoglobin 32.7 pg Mean Corpuscular Hemoglobin Concent 33.0 g/dl RDW Standard Deviation 46.2 fL RDW Coefficient of Variation 12.7 % Platelet Count 160 K/uL Mean Platelet Volume 11.1 fL Sodium Level 137 mmol/L Potassium Level 3.8 mmol/L Chloride Level 103 mmol/L Carbon Dioxide Level 26 mmol/L Anion Gap 8.0 mmol/L Blood Urea Nitrogen 19 mg/dl Creatinine 1.10 mg/dl Est Creatinine Clear Calc Drug Dose 39.1 ml/min Estimated GFR () 57.7 Estimated GFR (Non- 49.8 BUN/Creatinine Ratio 17.2 Random Glucose 93 mg/dl Calcium Level 8.0 mg/dl Test 04/28/17 09:17 25-Hydroxy Vitamin D Total 34.0 ng/ml (Murarik, Aaliyah ., PA-C) Assessment and Plan 71 y/o F, with PMHx of h/o TIA- on aspirin, HTN, Hypothyroid, Hyperlipidemia, Pre-DM, and allergies, who was admitted on 04/27 for R hip fracture s/p mechanical fall. R hip fracture s/p cemented bipolar hip arthroplasty by Dr. Newton on 04/27: - Pain management, PT/OT, and DVT prophylaxis as per primary team - Postop CBC and PRP- STABLE - Vitamin D level 34.0 - Encouraged incentive spirometer Near syncopal event, likely vasovagal: Continue to monitor Tachycardia, likely secondary to situation/pain: Continue to monitor HTN- STABLE: Losartan 50 mg BID, HCTZ 6.25 mg BID HypoK- RESOLVED: Klor-Con 20 mEq BID h/o TIA, hyperlipidemia: ASA, Lipitor 20 mg HS, Fish Oil Hypothyroid: Continue Synthroid 75 mcg daily DVT prophylaxis: ASA BID as per ortho Code Status: LEVEL I, FULL Dispo: Pending rehab- PT/OT and social media assistant consulted (Aaliyah Guerrero, PA-C) i personally examined pt and verified all oviedo points w Maximo Guerrero PAC orthostatic sx. off and on frequently - when getting out of bed. dtr notes that she was pretty sensitive to BP meds as well vitals noted nad breathing unlabored no pallor or icterus orthostatic sx - fortunately Hgb has been stable, give IVF, supportive care, follow (Serafin Connell D.O.)
[2017-04-28] MEDS ORDERED: SODIUM CHLORIDE 0.9% 1000ML 1,000 ML IV SCH (14:30)
[2017-04-29] MEDS: LEVOTHYROXINE 75 MCG TAB PO SCH (05:45)
[2017-04-29] MEDS ORDERED: POLYETHYLENE (MIRALAX) 17 GM PACK PO SCH (06:00)
[2017-04-29 06:17] LABS: HEMATOCRIT 37.7 % (37-47); MEAN CELL VOLUME 99.5 fL (80-100); MEAN CORPUSCULAR HEMOGLOBIN 32.2 pg (25-34); MEAN CORPUSCULAR HGB CONC 32.4 g/dl (32-36); MEAN PLATELET VOLUME 10.8 fL (7.4-10.4); PLATELET COUNT 172 K/uL (130-400); RED BLOOD COUNT 3.79 M/uL (4.2-5.4); WHITE BLOOD COUNT 16.04 K/uL (4.8-10.8)
[2017-04-29 06:59] LABS: BUN/CREATININE RATIO 19.6 (10-20); CALCIUM 8.2 mg/dl (8.5-10.1); CREATININE 1.1 mg/dl (0.60-1.20); POTASSIUM 3.8 mmol/L (3.5-5.1)
[2017-04-29 08:13] VITALS: BP 150/82; PULSE 97; TEMP 36.6; O2SAT 96
[2017-04-29] MEDS ORDERED: NURSING VERBAL MED ORDER ONE ×2 (09:15→09:45)
[2017-04-29] MEDS: FEXOFENADINE HCL 60 MG TAB PO SCH (09:32)
[2017-04-29] MEDS: ASPIRIN 325 MG ECTAB PO SCH ×2 (09:32→21:31)
[2017-04-29] MEDS: POTASSIUM CHLORIDE 20 MEQ TABCR PO SCH ×2 (09:32→21:32)
[2017-04-29] MEDS: ACETAMINOPHEN 500 MG TAB PO PRN (09:32)
[2017-04-29] MEDS: ATORVASTATIN 20 MG TAB PO SCH (09:33)
--- NOTE | 2017-04-29 11:33 | PROGRESS NOTE ---
DATE: 04/29/2017 SUBJECTIVE: A 71-year-old female postop day #2 from right cemented bipolar hip arthroplasty for fracture. She is doing pretty well. She says she is having much better today this morning. Denies any chest pain or shortness of breath. Her hip pain is controlled. OBJECTIVE: VITAL SIGNS: Temperature is 36.6. Vital signs stable. GENERAL: Physical examination reveals a pleasant elderly female. She is sitting up in her bedside chair, eating breakfast and looks pretty comfortable. EXTREMITIES: Examination of the right hip reveals the dressing to be clean, dry and intact. Hip is located. She can dorsiflex and plantarflex her foot appropriately. She is neurologically intact. LABORATORY DATA: Hemoglobin 12.2, hematocrit 37.7, and white cell count 16.04. Electrolytes are stable. ASSESSMENT: A 71-year-old female postop day #2 from a right cemented bipolar hip arthroplasty for fracture, doing pretty well. Having a much better day today. Pain is controlled. She is neurologically intact. PLAN: 1. DVT prophylaxis including thigh-high TEDs, SCDs, and aspirin twice a day. 2. PT/OT. She can weightbear as tolerated. Right total hip protocol. 3. Pain control, doing pretty well with current pain regimen. She is really refusing the strong narcotics. We can use Tylenol and tramadol as needed. 4. Medical management as per the medicine service. 5. Disposition: She is orthopedically stable and acceptable for discharge. She can be discharged to rehab at any time medically stable. I need to see her back 2 weeks postop. Any orthopedic questions can be directed to me at [phone].
--- NOTE | 2017-04-29 12:08 | Hospitalist Progress Note ---
Hospitalist Progress Note Date of Service Apr 29, 2017. (Aaliyah Guerrero ., PA-C) Subjective Pt evaluation today including: conversation w/ patient, physical exam, lab review, review of inpatient medication list Voiding: no voiding problems Patient feeling well this AM. Sitting in bedside chair. Eating and drinking OK. +BM today. 2 near syncopal events yesterday- H&H stable, BP medications held. No more episodes today. Ambulating to the restroom w/ no significant difficulty/pain. No lightheadedness /dizziness. Patient denies any fever, chills, sweats, lightheadedness, dizziness, vision changes, CP, palpitations, edema, SOB, wheezing, cough, abdominal pain, nausea, vomiting, diarrhea, urinary symptoms, melena, numbness/tingling, weakness, anxiety/depression, active bleeding, or new skin discoloration/changes. (Aaliyah Guerrero ., PA-C) Medications Current Inpatient Medications Medications (Trade) Dose Ordered Sig/Migdalia Route Start Time Stop Time Status Last Admin Dose Admin Ondansetron HCl (Zofran Inj) 4 mg Q6H PRN IV 04/27/17 11:15 05/27/17 11:14 Atorvastatin Calcium (Lipitor Tab) 20 mg QAM PO 04/28/17 09:00 05/28/17 08:59 04/29/17 09:33 20 MG Fexofenadine HCl (Leslye Tab) 60 mg DAILY PO 04/28/17 09:00 05/28/17 08:59 04/29/17 09:32 60 MG Levothyroxine Sodium (Synthroid Tab) 75 mcg DAILYBB PO 04/28/17 06:00 05/28/17 05:59 04/29/17 05:45 75 MCG Potassium Chloride (Klor-Con Tab) 20 meq BID PO 04/27/17 21:00 05/27/17 20:59 04/29/17 09:32 20 MEQ Oxycodone HCl (Roxicodone Immediate Rel Tab) 5 mg Q4H PRN PO 04/27/17 15:45 05/11/17 15:44 04/28/17 10:42 5 MG Magnesium Hydroxide (Milk Of Magnesia Susp) 30 ml DAILY PRN PO 04/27/17 15:45 05/27/17 15:44 Bisacodyl (Dulcolax Supp) 10 mg DAILY PRN IN 04/27/17 15:45 05/27/17 15:44 Aspirin (Ecotrin Tab) 325 mg BID PO 04/28/17 09:00 05/28/17 08:59 04/29/17 09:32 325 MG Acetaminophen (Tylenol Tab) 1,000 mg Q8H PRN PO 04/29/17 09:15 05/29/17 09:14 04/29/17 09:32 1,000 MG (Aaliyah Guerrero, WILBERTO-C) Objective Vital Signs Date Time Temp Pulse Resp B/P (MAP) Pulse Ox O2 Delivery O2 Flow Rate FiO2 04/29/17 08:14 Room Air 04/29/17 08:13 36.6 97 18 150/82 (104) 96 Room Air 04/28/17 23:50 37.1 105 16 123/69 (87) 95 Room Air 04/28/17 23:20 Room Air 04/28/17 19:35 36.8 106 16 109/66 (80) 97 Room Air 04/28/17 15:51 38.1 110 18 153/77 (102) 96 Room Air 04/28/17 15:45 Room Air (Aaliyah Guerrero, WILBERTO-C) Physical Exam General Appearance: no apparent distress Eyes: normal inspection, PERRL ENT: hearing grossly normal Neck: supple Respiratory/Chest: lungs clear, no respiratory distress, no accessory muscle use Cardiovascular: regular rate, rhythm Abdomen: normal bowel sounds, non tender, soft Extremities: no pedal edema, no calf tenderness Neurologic/Psychiatric: alert, normal mood/affect, oriented x 3 Skin: normal color, warm/dry, no rash (Aaliyah Guerrero, PA-C) Laboratory Results Last 24 Hours Test 04/28/17 12:01 04/28/17 14:47 04/28/17 17:12 04/28/17 20:48 Bedside Glucose 120 mg/dl 119 mg/dl 120 mg/dl Hemoglobin 13.5 g/dL Test 04/29/17 05:54 04/29/17 08:16 White Blood Count 16.04 K/uL Red Blood Count 3.79 M/uL Hemoglobin 12.2 g/dL Hematocrit 37.7 % Mean Corpuscular Volume 99.5 fL Mean Corpuscular Hemoglobin 32.2 pg Mean Corpuscular Hemoglobin Concent 32.4 g/dl RDW Standard Deviation 46.7 fL RDW Coefficient of Variation 12.9 % Platelet Count 172 K/uL Mean Platelet Volume 10.8 fL Sodium Level 139 mmol/L Potassium Level 3.8 mmol/L Chloride Level 106 mmol/L Carbon Dioxide Level 26 mmol/L Anion Gap 7.0 mmol/L Blood Urea Nitrogen 22 mg/dl Creatinine 1.10 mg/dl Est Creatinine Clear Calc Drug Dose 39.1 ml/min Estimated GFR () 57.7 Estimated GFR (Non- 49.8 BUN/Creatinine Ratio 19.6 Random Glucose 108 mg/dl Calcium Level 8.2 mg/dl C-Reactive Protein 26.60 mg/dl Bedside Glucose 115 mg/dl (Aaliyah Guerrero PA-C) Assessment and Plan 71 y/o F, with PMHx of h/o TIA- on aspirin, HTN, Hypothyroid, Hyperlipidemia, Pre-DM, and allergies, who was admitted on 04/27 for R hip fracture s/p mechanical fall. R hip fracture s/p cemented bipolar hip arthroplasty by Dr. Newton on 04/27: - Pain management, PT/OT, and DVT prophylaxis as per primary team - Vitamin D level 34.0 - Encouraged incentive spirometer Leukocytosis, spiking fever, and elevated CRP: - No s/s of infection per patient - UA pending- will empirically teat w/ IV Rocephin at this time - Follow CBC Near syncopal event, likely vasovagal: IVF, holding BP medications, H&H stable, continue to monitor Tachycardia, likely secondary to situation/pain: Continue to monitor HTN- STABLE: Held Losartan 50 mg BID and HCTZ 6.25 mg BID due to near syncopal events HypoK- RESOLVED: Klor-Con 20 mEq BID h/o TIA, hyperlipidemia: ASA, Lipitor 20 mg HS, Fish Oil Hypothyroid: Continue Synthroid 75 mcg daily DVT prophylaxis: ASA BID as per ortho Code Status: LEVEL I, FULL Dispo: Pending [facility]- PT/OT and transition social worker consulted- likely within the next 1 day - If accepted to [facility] later today, will discharge on PO Keflex pending final cultures- patient in agreement w/ plan (Aaliyah Guerrero PA-C) i personally examined pt and verified all oviedo points w T Muralvinok PAC feeling better didn't really feel fever last night, although has had some urinary hesitancy. CRP noted. vitals noted nad breathing unlabored no pallor or icterus hip fx - stable for rehab fever, elevated CRP, urinary sx - cover empirically for UTI pendign further culture stable for rehab as above, awaiting approvals (Serafin Connell D.O.)
[2017-04-29] MEDS: CEFTRIAXONE SOD INJ 1 GM in DEXTROSE 5% ADD-VANTAGE 50ML 50 ML IV SCH (13:45)
[2017-04-29 14:01] LABS: URINE APPEARANCE CLEAR (CLEAR); URINE BILIRUBIN NEG (NEG); URINE COLOR YELLOW; URINE EPITHELIAL CELL AUTO 20-30 /lpf (0-5); URINE NITRITE NEG (NEG); URINE SPECIFIC GRAVITY 1.013 (1.000-1.030); UROBILINOGEN NEG (NEG)
[2017-04-29 14:05] LABS: MANUAL MICROSCOPIC REQUIRED? NO; REVIEW REQ? NO
[2017-04-29 15:17] VITALS: BP 118/68; PULSE 96; TEMP 36.3; O2SAT 98
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
[2017-04-30 00:05] VITALS: BP 150/82; PULSE 108; TEMP 37.3; O2SAT 93
[2017-04-30 05:51] LABS: HEMATOCRIT 31.7 % (37-47); MEAN CELL VOLUME 98.1 fL (80-100); MEAN CORPUSCULAR HEMOGLOBIN 33.7 pg (25-34); MEAN CORPUSCULAR HGB CONC 34.4 g/dl (32-36); MEAN PLATELET VOLUME 10.9 fL (7.4-10.4); PLATELET COUNT 167 K/uL (130-400); RED BLOOD COUNT 3.23 M/uL (4.2-5.4); WHITE BLOOD COUNT 14.98 K/uL (4.8-10.8)
[2017-04-30] MEDS: LEVOTHYROXINE 75 MCG TAB PO SCH (05:51)
[2017-04-30 06:21] LABS: BUN/CREATININE RATIO 28.1 (10-20); CALCIUM 8.4 mg/dl (8.5-10.1); CREATININE 0.97 mg/dl (0.60-1.20); POTASSIUM 3.9 mmol/L (3.5-5.1)
[2017-04-30 08:42] VITALS: BP 147/67; PULSE 105; TEMP 36.5; O2SAT 96
--- NOTE | 2017-04-30 08:43 | Clinical Documentation Query ---
CLINICAL DOCUMENTATION QUERY Dr. BROWN, In your clinical opinion is this patient being managed for: (x ) Acute blood loss anemia ( ) Not Agree ( ) Other explanation of clinical findings (Please Explain) ( ) Unable to determine (Please Define) ( ) Need to Discuss The medical record reflects the following clinical findings, treatment, and risk factors. Clinical Indicators: 71 yo female presenting with a R femur fracture requiring a R bipolar hip arthroplasty. EBL of 300cc with surgery. Baseline Hgb 14.6/Hct 43 which has trended down to 10.9/31.7. Treatment:monitor CBC's Risk Factors: fall with fracture and surgical blood loss Please clarify and document your clinical opinion in the progress notes and discharge summary. Terms such as "probable", "suspected", "likely", "questionable", "possible", or "still to be ruled out" are acceptable. IF IN AGREEMENT, YOU MUST DOCUMENT ABOVE DIAGNOSTIC STATEMENT IN DAILY PROGRESS NOTES AND DISCHARGE SUMMARY. This document is not part of the patient's record. Thank You, Celina Blanton, DERRICK [phone]
[2017-04-30] MEDS: FEXOFENADINE HCL 60 MG TAB PO SCH (08:49)
[2017-04-30] MEDS: ATORVASTATIN 20 MG TAB PO SCH (08:49)
[2017-04-30] MEDS: POTASSIUM CHLORIDE 20 MEQ TABCR PO SCH (08:49)
[2017-04-30] MEDS: ASPIRIN 325 MG ECTAB PO SCH (08:49)
[2017-04-30] MEDS: ACETAMINOPHEN 500 MG TAB PO PRN (08:51)
[2017-04-30] MEDS ORDERED: RXC5 PO (09:53)
[2017-04-30] MEDS ORDERED: ASPEC325 PO (09:53)
--- NOTE | 2017-04-30 09:53 | Discharge Instructions ---
Discharge Instructions Date of Service Apr 30, 2017. Admission Reason for Admission: Subcapital Fracture Of Rt Hip Discharge Discharge Diagnosis / Problem: R hip fracture Discharge Goals Goal(s): Decrease discomfort, Improve function, Increase independence, Learn about illness, Diagnostic testing, Therapeutic intervention Activity Recommendations Activity Level: Assistance Required Therapies: Physical Therapy, Occupational Therapy As per orthopedic recommendations Additional Information Patient informed of condition: Yes Advance Directives: Yes DNR: No Level of Care: Acute Rehab Communicable Disease: No Prognosis: Improving Loya Catheter: No Instructions / Follow-Up Instructions / Follow-Up R hip fracture s/p cemented bipolar hip arthroplasty by Dr. Newton on 04/27: - Pain management w/ Tylenol 1000 mg BID PRN and Roxicodone 5 mg q4 hrs PRN - Vitamin D level 34.0 Leukocytosis, spiking fever, and elevated CRP: - No s/s of infection - UA negative - Follow CBC- leukocytosis improving - Patient was treated empirically w/ IV Rocephin x2 dose on 04/29 and 04/30 pending UA. Due to no obvious source of infection, will NOT discharge on antibiotics -- Recommend [facility] continue to monitor closely and place on antibiotic PRN for s/s of infection Near syncopal event, likely vasovagal: - Treated w/ IVF - Held BP medications- will resume BP medications at discharge. If near syncopal event reoccurs, recommend [facility] adjust BP medications as needed. - H&H stable Tachycardia, likely secondary to situation/pain- STABLE HTN- STABLE: Held Losartan 50 mg BID and HCTZ 6.25 mg BID due to near syncopal events- resume at discharge HypoK- RESOLVED: Klor-Con 20 mEq BID h/o TIA, hyperlipidemia: ASA, Lipitor 20 mg HS, Fish Oil Hypothyroid: Continue Synthroid 75 mcg daily DVT prophylaxis: ASA BID as per ortho Code Status: LEVEL I, FULL Dispo: Discharge to [facility] FOLLOW-UPS: Follow-up with [facility] provider within 24-48 hours Please follow-up with your PCP within 5-7 days after discharge from N Please follow-up with Orthopedics within 2 weeks Please follow-up/keep all of your subspecialty appointments Current Hospital Diet Patient's current hospital diet: Diabetes Type 2 Diet Discharge Diet Recommended Diet: Diabetes Type 2 Diet Procedures Procedures Performed: Right hip bi-polar arthroplasty; cemented Pending Studies Studies pending at discharge: no Physician Orders On Transfer Special Precautions: Fall precautions Dressing Changes: Routine R hip incision site care IV Therapy: None Vital Signs: Routine POLST Discussion: Not Applicable Medical Emergencies . Who to Call and When: Medical Emergencies: If at any time you feel your situation is an emergency, please call 911 immediately. . Non-Emergent Contact Non-Emergency issues call your: Primary Care Provider Call Non-Emergent contact if: you have a fever, your pain is not controlled, your pain is worsening, your pain is unusual for you, your pain is concerning you, wound has increased drainage, wound has increased redness, wound has increased pain, you have any medication questions . . "Provider Documentation" section prepared by Aaliyah Guerrero. . Core Measure Problem Core Measures: None
--- NOTE | 2017-04-30 09:56 | Discharge Summary ---
Discharge Summary Date of Service Apr 30, 2017. (Aaliyah Guerrero, JUSTICE) Discharge Summary Admission Date: Apr 27, 2017 at 11:09 Discharge Date: Apr 30, 2017 Discharge Disposition: Rehab Principal Diagnosis: R hip fracture Problems/Secondary Diagnoses: R hip fracture s/p cemented bipolar hip arthroplasty by Dr. Newton on 04/27 Leukocytosis, spiking fever, and elevated CRP Near syncopal event Tachycardia HTN HypoK h/o TIA hyperlipidemia Hypothyroid Procedures: RIGHT PELVIS/UNILATERAL HIP 2-3VIEWS CLINICAL HISTORY: 71 years-old Female presenting with FALL, RIGHT HIP PAIN Right. TECHNIQUE: Single frontal view of the pelvis and frontal and crosstable lateral views of the right hip were obtained. COMPARISON: None. FINDINGS: 3 lag screw fixation of the left femoral neck. Deformity of the right femoral neck with evidence of a displaced subcapital fracture. The distal fracture fragment is displaced 10 mm anteriorly relative to the femoral head, which remains congruent within the acetabulum. There is also suggestion of impaction of the fracture site. Degenerative changes of the sacroiliac joints. Moderate stool burden. IMPRESSION: Subcapital right femoral neck fracture with displacement and impaction. Electronically signed by: Eyad Cary M.D. 04/27/2017 10:30 AM Dictated Date/Time: 04/27/2017 10:28 AM The status of this report is Signed. Draft = Not yet reviewed or approved by Radiologist. Signed = Reviewed and approved by Radiologist. CHEST ONE VIEW PORTABLE CLINICAL HISTORY: 71 years-old Female presenting with PREOP R HIP FX. TECHNIQUE: Portable supine AP view of the chest was obtained. COMPARISON: 07/31/2016. FINDINGS: Atherosclerosis of aortic arch. Cardiac silhouette normal in size. Lungs and pleural spaces clear. Degenerative changes of the thoracic spine. Upper abdomen normal. IMPRESSION: 1. No acute cardiopulmonary disease. Electronically signed by: Eyad Cary M.D. 04/27/2017 10:31 AM Dictated Date/Time: 04/27/2017 10:31 AM The status of this report is Signed. Draft = Not yet reviewed or approved by Radiologist. Signed = Reviewed and approved by Radiologist. RIGHT HIP UNILATERAL 2 VIEWS CLINICAL HISTORY: 71 years-old Female presenting with Right Bipolar hip Right. TECHNIQUE: Frontal and crosstable lateral views of the right hip were obtained. COMPARISON: Plain radiographs from 04/27/2017 at 10:12 AM. FINDINGS: There has been interval total right hip arthroplasty for the subcapital right femoral neck fracture. No hardware complication, malalignment, or new fracture is evident. Expected soft tissue emphysema and overlying skin courtney. IMPRESSION: Expected postsurgical appearance status post total right hip arthroplasty. Electronically signed by: Eyad Cary M.D. 04/27/2017 4:20 PM Dictated Date/Time: 04/27/2017 4:19 PM The status of this report is Signed. Draft = Not yet reviewed or approved by Radiologist. Signed = Reviewed and approved by Radiologist. Immediate Operative Summary Operative Date Apr 27, 2017. Pre-Operative Diagnosis right displaced femoral neck fracture Post-Operative Diagnosis right displaced femoral neck fracture Procedure(s) Performed Right hip bi-polar arthroplasty; cemented Surgeon Dr. Eugene Newton Ingredient Handler Surgeon(s) Floyd Lopez PA-C Estimated Blood Loss 300 ML Findings Right femoral neck fracture - displaced Fluids (cc crystalloids) 1300 cc Specimens a. right femoral head Drains None Anesthesia Spinal Complication(s) None Disposition Recovery Room / PACU <Electronically signed by Eugene Newton M.D.> Signed: 04/27/17 1540 Signed: The status of this report is Signed * If report status is Draft, the document has not been finalized by the responsible provider Consultations: Orthopedics (Aailyah Guerrero, JUSTICE) Medication Reconciliation New Medications: Aspirin (Aspirin) 325 Mg Ectab 325 MG PO BID for 30 Days Oxycodone HCl (Oxycodone HCl) 5 Mg Tab 5 MG PO Q4H PRN for Moderate Pain (pain scale 4-6) for 3 Days, #12 TAB Continued Medications: Ascorbic Acid (Vitamin C) 500 Mg Tab 500 MG PO DAILY Atorvastatin (Atorvastatin Calcium) 20 Mg Tab 20 MG PO QAM, #30 TAB Calcium/Vitamin D (Os-[place] 500 Plus D) Tab 1 TAB PO BID, TAB Fexofenadine Hcl (Leslye Allergy) 60 Mg Tab 1 TAB PO DAILY Fish Oil ([place]-3) 1 Ea Cap 1 CAP PO BID, CAP Hctz/Losartan (Hyzaar 12.5MG/100MG) 1 Tab Tab 0.5 TAB PO BID, TAB Levothyroxine Sodium (Levothyroxine Sodium) 75 Mcg Tab 75 MCG PO DAILY for 90 Days, #90 TAB 3 Refills Discontinued Medications: Aspirin (Aspirin EC Low Dose) 81 Mg Ectab 81 MG PO QAM, #30 TABS Discharge Exam Review of Systems: Constitutional: No fever, No chills, No sweats, No weakness, No fatigue ENT: No hearing loss Respiratory: No cough, No shortness of breath, No hemoptysis Cardiovascular: No chest pain, No edema, No palpitations Abdomen: No pain, No nausea, No vomiting, No diarrhea, No constipation, No GI bleeding Musculoskeletal: + joint pain, + muscle pain, No swelling, No calf pain Genitourinary - Female: No dysuria, No urinary frequency, No urinary urgency , No hematuria Neurologic: No weakness, No numbness/tingling Psychiatric: No depression symptoms, No anxiety Hematologic / Lymphatic: No abnormal bleeding/bruising Integumentary: No rash, No itch, No new/changing skin lesions Physical Exam: General Appearance: no apparent distress Eyes: normal inspection, PERRL ENT: hearing grossly normal Neck: supple Respiratory/Chest: lungs clear, no respiratory distress, no accessory muscle use Cardiovascular: regular rate, rhythm Abdomen / GI: normal bowel sounds, non tender, soft Extremities: no calf tenderness, no pedal edema, + pertinent finding (R hip incision site dressed in clean dressing ) Neurologic/Psychiatric: alert, normal mood/affect, oriented x 3 Skin: normal color, warm/dry, no rash (Aaliyah Guerrero, PA-C) Hospital Course Admission H&P: 71 y/o F c/o R hip pain. Pt states she was having a completely usual day for herself when she missed a step and fell. She states this was purely a mechanical fall. She had no lightheadedness, dizziness, changes in vision or orientation prior to this fall. She states she has felt in her usual health the last few days and has been eating well. Pt denies fever, SOB, chest pain, abd pain, n/v/c/d, LE swelling. Pt states she generally has no issues with walking and can walk a flight of stairs without issue. Pt takes daily aspirin s/p TIA last year, but has not taken it yet today. Her last dose was yesterday. Pt has not taken her AM BP medication either. Pt has not eaten yet today. Physical Exam Vital Signs Date Time Temp Pulse Resp B/P (MAP) Pulse Ox O2 Delivery O2 Flow Rate FiO2 04/27/17 10:58 173/94 04/27/17 10:57 89 14 04/27/17 10:52 86 13 04/27/17 10:47 90 12 04/27/17 10:42 89 28 04/27/17 10:37 91 22 04/27/17 10:32 92 17 04/27/17 10:27 96 17 04/27/17 10:24 173/94 04/27/17 09:57 93 16 96 04/27/17 09:52 90 20 95 04/27/17 09:50 90 16 192/100 96 04/27/17 09:49 87 04/27/17 09:46 192/100 04/27/17 08:45 199/104 04/27/17 08:42 36.7 89 16 211/107 97 Room Air General Appearance: WD/WN, no apparent distress Head: normocephalic, atraumatic Eyes: normal inspection, EOMI ENT: hearing grossly normal Neck: supple Respiratory/Chest: normal breath sounds, no respiratory distress Cardiovascular: regular rate, rhythm, no edema Abdomen/GI: non tender, soft Extremities/Musculoskelatal: no calf tenderness, no pedal edema Neurologic/Psych: alert, normal mood/affect, oriented x 3 Skin: normal color, warm/dry Hospital Course: 71 y/o F, with PMHx of h/o TIA- on aspirin, HTN, Hypothyroid, Hyperlipidemia, Pre-DM, and allergies, who was admitted on 04/27 for R hip fracture s/p mechanical fall. R hip fracture s/p cemented bipolar hip arthroplasty by Dr. Newton on 04/27: - Pain management w/ Tylenol 1000 mg BID PRN and Roxicodone 5 mg q4 hrs PRN - Vitamin D level 34.0 - PT/OT- recommend rehab Leukocytosis, spiking fever, and elevated CRP: - No s/s of infection - UA negative - Follow CBC- leukocytosis improving - Patient was treated empirically w/ IV Rocephin x2 dose on 04/29 and 04/30 pending UA. Due to no obvious source of infection, will NOT discharge on antibiotics -- Recommend [facility] continue to monitor closely and place on antibiotic PRN for s/s of infection Near syncopal event, likely vasovagal: - Treated w/ IVF - Held BP medications- will resume BP medications at discharge. If near syncopal event reoccurs, recommend [facility] adjust BP medications as needed. - H&H stable Tachycardia, likely secondary to situation/pain- STABLE HTN- STABLE: Held Losartan 50 mg BID and HCTZ 6.25 mg BID due to near syncopal events- resume at discharge HypoK- RESOLVED: Klor-Con 20 mEq BID h/o TIA, hyperlipidemia: ASA, Lipitor 20 mg HS, Fish Oil Hypothyroid: Continue Synthroid 75 mcg daily DVT prophylaxis: ASA BID as per ortho Code Status: LEVEL I, FULL Dispo: Discharge to [facility] Total Time Spent: Greater than 30 minutes This includes examination of the patient, discharge planning, medication reconciliation, and communication with other providers. (Aaliyah Guerrero, MARGARITAC) i personally examined pt and verified all [place] points w Maximo Guerrero PAC looking forward to rehab. no new complaints vitals noted nad breathing unlabored no pallor or icterus hip fx - for rehab ?UTI - had empiric abx here, follow clinically at [facility] but no clear need for ongoing abx stable for transfer as above (Serafin Connell D.O.) Discharge Instructions Please refer to the electronic Patient Visit Report (Discharge Instructions) for additional information. (Aaliyah Guerrero, MARGARITAC) Follow-Up Follow-up with [facility] provider within 24-48 hours Please follow-up with your PCP within 5-7 days after discharge from [facility] Please follow-up with Orthopedics within 2 weeks Please follow-up/keep all of your subspecialty appointments (Aaliyah Guerrero PA-C) Additional Copies To Lyudmila Neri; Jose Guadalupe Collins M.D.
[2017-04-30] MEDS: CEFTRIAXONE SOD INJ 1 GM in DEXTROSE 5% ADD-VANTAGE 50ML 50 ML IV SCH (11:15)
[2017-04-30 13:56] VITALS: BP 147/67; PULSE 105; TEMP 36.5; O2SAT 96
--- NOTE | 2017-04-30 16:07 | PROGRESS NOTE ---
DATE: 04/30/2017 SUBJECTIVE: A 71-year-old female postop day 3 from right cemented bipolar hip arthroplasty for fracture. She is doing well. She seems to be getting better daily. She feels like she is ready for rehabilitation. No chest pain and no shortness of breath. Pain is controlled with Tylenol. OBJECTIVE: VITAL SIGNS: Temperature is 36.5. Vital signs stable. GENERAL: Physical examination reveals a pleasant elderly female. She is lying in bed and looks quite comfortable. EXTREMITIES: Examination of the leg reveals the leg lengths to be equal. Dressing is clean, dry and intact. Fairly mild swelling. She is neurologically intact. Hip is located. LABORATORY DATA: Hemoglobin 10.9 and hematocrit 31.7. Electrolytes are stable. White cell count improved at 14.8. ASSESSMENT: A 71-year-old female postop day 3 from a bipolar hip arthroplasty for fracture, doing well. Pain is controlled. The white cell count has improved. It is most likely elevated due to stress. She is slightly anemic, but asymptomatic. PLAN: 1. DVT prophylaxis including thigh-high TEDs, SCDs, and aspirin twice a day. 2. PT/OT. Weightbear as tolerated. Right total hip protocol. 3. Pain control, doing pretty well with current pain regimen. She has been using mostly Tylenol. 4. Anemia. Currently, asymptomatic. Continue iron supplementation. 5. Disposition: Plan to discharge to rehab, I believe later today. I need to see her back 2 weeks postop. Any orthopedic questions can be directed to me at [phone]. [facility]
== END 2017-04-30 15:30 | DRG 470 ==
LOC: EDBD 08:32 → C.EDB 08:34 → C.MSW 11:09 → ENRESERV 11:25
PROVIDERS: ADMIT Family Medicine; ATTEND Family Medicine
PROC: 0SR90J9 Replacement of Right Hip Joint with Synthetic Substitute, Cemented, Open Approach (ICD-10-PCS; principal; 2017-04-27 13:00)
DX: S72.001A Fracture of unspecified part of neck of right femur, initial encounter for closed fracture (principal); D62 Acute posthemorrhagic anemia; E78.5 Hyperlipidemia, unspecified; I10 Essential (primary) hypertension; K21.9 Gastro-esophageal reflux disease without esophagitis; E03.9 Hypothyroidism, unspecified; E87.6 Hypokalemia; R73.03 Prediabetes; R55 Syncope and collapse; R00.0 Tachycardia, unspecified; Z79.82 Long term (current) use of aspirin; Z79.899 Other long term (current) drug therapy; Z86.73 Personal history of transient ischemic attack (TIA), and cerebral infarction without residual deficits; W10.9XXA Fall (on) (from) unspecified stairs and steps, initial encounter

== ENCOUNTER 2017-07-12 18:04 | Emergency (ER) | payer BC, OTHER ==
[~2017-07-12] VITALS: Ht 157.5 cm; Wt 60.0 kg
[~2017-07-12 18:04] MED LIST changes: +ASPEC325 PO; -ASPEC81 PO; +FEXO1TAB54 PO; -LOSA100T26 PO; +LOSA100T33 PO; -MULT-223 PO; -OMEP20CA59 PO; -RANI300T2 PO; +RXC5 PO
[2017-07-12 18:06] VITALS: TEMP 36.5; Ht 157.5 cm; Wt 60.0 kg
--- NOTE | 2017-07-12 18:31 | EMERGENCY ROOM VISIT NOTE ---
History Report prepared by Claire: Singh Reyes Under the Supervision of: Dr. Joan Rivas D.O. 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 She reports taking readings for her blood pressure morning and night and over the last two days the blood pressure readings have been higher than normal. This morning about seven hours ago the reading was 190/98 mmHg and then 166/96 mmHg this evening ASH COLLECTOR. She notes feeling lightheaded this afternoon, though denies chest pain, shortness of breath, abdominal pain, or added stress. She reports mild pain in her legs. She reports exercising regularly. She has no recent weight change, though she explains having lost 20 pounds s/p TIA she experienced a year ago. She notes taking half a dose of Losartan twice a day, noting that she does not take the blood pressure medication every day, especially when her blood pressure is too low. She notes taking half a pill of Losartan this morning, though has not taken her evening dose today. She notes consuming raisin bran and a banana for breakfast and chicken corn soup and pie for lunch. She notes breaking her hip 10 weeks ago. She reports currently feeling fine. Source of History: patient Onset: two days ASH COLLECTOR Timing: intermittent Associated Symptoms: No chest pain, No SOB, No abdominal pain Note: She notes high blood pressure. She notes lightheadedness. She notes mild pain in her legs. She denies added stress. Review of Systems See HPI for pertinent positives & negatives. A total of 10 systems reviewed and were otherwise negative. Past Medical & Surgical Medical Problems: (1) CVA (cerebral vascular accident) (2) Dyslipidemia (3) Essential (Primary) Hypertension (4) GERD (gastroesophageal reflux disease) (5) Hypothyroidism Nos (6) Stroke-like symptoms Surgical Problems: (1) Status post hip surgery Family History FH: cancer FH: kidney failure Heart disease Social History Smoking Status: Never Smoker Alcohol Use: none Drug Use: none Marital Status: Housing Status: lives with significant other Occupation Status: retired Current/Historical Medications Scheduled Ascorbic Acid (Vitamin C), 500 MG PO DAILY Aspirin (Aspirin), 325 MG PO DAILY Atorvastatin (Atorvastatin Calcium), 20 MG PO QAM Calcium/Vitamin D (Os-[place] 500 Plus D), 1 TAB PO BID Fexofenadine Hcl (Leslye Allergy), 1 TAB PO DAILY Fish Oil ([place]olla-3), 1 CAP PO BID Fluticasone Propionate (Nasal) (Allergy Nasal [place] 24 Ho), 1 SPRAY CHRIS HS Hctz/Losartan (Hyzaar 12.5MG/50MG), 1 TAB PO BID Levothyroxine Sodium (Levothyroxine Sodium), 75 MCG PO DAILY Scheduled PRN Docusate Sodium (Docusate Sodium), 1 TAB PO BID PRN for Constipation Allergies Coded Allergies: No Known Allergies (Verified , 07/12/17) Physical Exam Vital Signs Date Time Temp Pulse Resp B/P (MAP) Pulse Ox O2 Delivery O2 Flow Rate FiO2 07/12/17 19:59 80 18 140/70 98 Room Air 07/12/17 19:10 81 18 150/78 98 Room Air 07/12/17 18:26 88 07/12/17 18:15 91 190/100 07/12/17 18:06 36.5 99 17 180/89 98 Room Air Physical Exam HEENT: Head - normocephalic and atraumatic Pupils are equal, round, and reactive to light. Extraocular eye muscles are intact, and sclera are anicteric. Nose - moist nasal mucosa without discharge. Mouth - moist buccal mucosa. Oropharynx is nonerythematous and there is no tonsillar exudate or edema noted. Neck: Supple; no JVD, nuchal rigidity, cervical lymphadenopathy, or auscultated bruits. Heart: Regular rate and rhythm. There is a normal S1 and S2 with no murmurs, clicks, or gallops appreciated. Lungs: Clear to auscultation bilaterally with no wheezes, rales, or rhonchi. Abdomen: Soft, completely nontender, nondistended, with good bowel sounds. There are no palpable pulsatile masses or hepatosplenomegaly. There is no guarding, rigidity, or rebound noted. Extremities: No evidence of cyanosis, clubbing, or edema. There are easily palpable peripheral pulses. Skin: warm and dry with good turgor and no rashes. Medical Decision & Procedures Laboratory Results 07/12/17 18:40 07/12/17 18:40 Test 12/2/17 18:40 Red Blood Count 4.05 M/uL (4.2-5.4) Mean Corpuscular Volume 97.8 fL (80-100) Mean Corpuscular Hemoglobin 33.8 pg (25-34) Mean Corpuscular Hemoglobin Concent 34.6 g/dl (32-36) RDW Standard Deviation 44.7 fL (36.4-46.3) RDW Coefficient of Variation 12.5 % (11.5-14.5) Mean Platelet Volume 10.9 fL (7.4-10.4) Anion Gap 6.0 mmol/L (3-11) Est Creatinine Clear Calc Drug Dose 34.6 ml/min Estimated GFR () 55.4 Estimated GFR (Non- 47.8 BUN/Creatinine Ratio 20.6 (10-20) Calcium Level 8.6 mg/dl (8.5-10.1) Thyroid Stimulating Hormone (TSH) 3.360 uIu/ml (0.300-4.500) Laboratory results per my review. ECG Indication: other (high blood pressure) Rate (beats per minute): 90 Rhythm: normal sinus Findings: no acute ischemic change, no ectopy ED Course 1817: Patient was evaluated in room A11B. A complete history and physical examination was performed. IV lock was established. Labs were drawn as above. A twelve-lead EKG was obtained as described above. 1824: I manually obtained the patient's blood pressure and was found to be: 178/ 86 mmHg. 1850: I reassessed the patient at this time. Her blood pressure was 160/78 mmHg. She is feeling better and resting comfortably. I discussed the results and treatment plan with the patient. I counseled the patient about high and low blood pressure readings. I answered all pertaining questions that she had. She expressed understanding and verbalized agreement. The patient will be discharged home. Medical Decision The patient is a 72 year old female who presents to the ED with erratic blood pressure for two days ASH COLLECTOR. Differential diagnosis includes hypertensive urgency , anxiety, cardiac ischemia, and medication noncompliance. Lab results show: leukocytes normal; stable H&H; TSH normal; BUN 23; Creatine normal; Glucose normal This is 72-year-old female patient who presents to the emergency department with increasing blood pressures. Patient has a history of high and low blood pressures. She became concerned today when the blood pressure continued to elevate. I spent some time talking to the patient about how she should monitor her blood pressure. Because the patient does have episodes of low blood pressure, I do not think it's a good idea to increase her blood pressure meds at this time. She should keep a log of no more than 2 blood pressures per day and if she is suffering any symptoms, she should take her blood pressure at that time. I've asked her to follow up closely with her PCP with this log. If symptoms worsen, she should return to the ER. Medication Reconcilliation Current Medication List: was personally reviewed by me Blood Pressure Screening Patient's blood pressure: Elevated blood pressure Blood pressure disposition: Referred to PCP Impression Primary Impression: Hypertension Scribe Attestation The scribe's documentation has been prepared under my direction and personally reviewed by me in its entirety. I confirm that the note above accurately reflects all work, treatment, procedures, and medical decision making performed by me. Departure Information Dispostion Home / Self-Care Referrals Jose Guadalupe Collins M.D. (PCP) Forms HOME CARE DOCUMENTATION FORM, IMPORTANT VISIT INFORMATION, WORK / SCHOOL INSTRUCTIONS Patient Instructions Hypertension Control, My [facility] Plan B Funding Additional Instructions Keep a log of your BP. Take it twice a day and when you are having symptoms. Follow up with PCP. Problem Qualifiers Primary Impression: Hypertension Hypertension type: unspecified Qualified Codes: I10 - Essential (primary) hypertension
[2017-07-12] MEDS ORDERED: ASPI325T45 PO (18:54)
[2017-07-12] MEDS ORDERED: HYZ/50125 PO (18:55)
[2017-07-12] MEDS ORDERED: DOCU1TAB6 PO (18:57)
[2017-07-12] MEDS ORDERED: FLUT50SP45 NAE (18:57)
[2017-07-12 19:01] LABS: HEMATOCRIT 39.6 % (37-47); MEAN CELL VOLUME 97.8 fL (80-100); MEAN CORPUSCULAR HEMOGLOBIN 33.8 pg (25-34); MEAN CORPUSCULAR HGB CONC 34.6 g/dl (32-36); MEAN PLATELET VOLUME 10.9 fL (7.4-10.4); PLATELET COUNT 204 K/uL (130-400); RED BLOOD COUNT 4.05 M/uL (4.2-5.4); WHITE BLOOD COUNT 7.22 K/uL (4.8-10.8)
[2017-07-12 19:15] LABS: BUN/CREATININE RATIO 20.6 (10-20); CALCIUM 8.6 mg/dl (8.5-10.1); CREATININE 1.13 mg/dl (0.60-1.20); POTASSIUM 3.4 mmol/L (3.5-5.1)
[2017-07-12 19:26] LABS: THYROID STIMULATING HORMONE 3.36 uIu/ml (0.300-4.500)
[2017-07-12 19:59] VITALS: BP 140/70; PULSE 80; O2SAT 98
== END 2017-07-12 20:08 | disposition home or self-care (01) ==
LOC: C.EDB 18:05 → C.EDA 20:08
DX: I10 Essential (primary) hypertension (principal); E78.5 Hyperlipidemia, unspecified; E03.9 Hypothyroidism, unspecified; Z82.49 Family history of ischemic heart disease and other diseases of the circulatory system; Z84.1 Family history of disorders of kidney and ureter; Z79.82 Long term (current) use of aspirin

== ENCOUNTER 2021-12-19 04:58 | Observation (INO) ==
--- NOTE | 2021-11-19 15:12 | PAT Medication Instructions ---
Medication Instructions Date of Service November 19, 2021 Home Medications Medication Instructions Recorded amoxicillin 500 mg tablet 2,000 mg PO ONCE #4 tab 11/14/21 amoxicillin 500 mg tablet 2,000 mg PO ONCE ascorbic acid (vitamin C) 1,000 mg tablet,extended release (Vitamin C ER) 1,000 mg PO HS aspirin 325 mg tablet 325 mg PO HS atorvastatin 20 mg tablet 20 mg PO QAM azelastine 137 mcg-fluticasone 50 mcg spray,susp-NaCl 0.9% spray nasal 1 ea I NTRANASAL QAM calcium carbonate 500 mg-vitamin D3 10 mcg (400 unit) tablet (Calcium 500 + D) 1 tab PO BID docusate sodium 100 mg capsule (Stool Softener) 100 mg PO BID famotidine 20 mg tablet 20 mg PO DAILY PRN fluticasone propionate 50 mcg/actuation nasal spray,suspension 1 spray INTRANASAL HS levothyroxine 75 mcg tablet 75 mcg PO QAM loratadine 10 mg tablet 10 mg PO QAM omega-3 fatty acids 1,000 mg PO BID Continue as directed amoxicillin 500 mg tablet 2,000 mg PO ONCE (prior to dental procedures) ASK your prescriber and surgeon aspirin 325 mg tablet 325 mg PO HS STOP taking 2 weeks before surgery (or as soon as possible if surgery is within 2 weeks) omega-3 fatty acids 1,000 mg PO BID DO NOT take the morning of surgery calcium carbonate 500 mg-vitamin D3 10 mcg (400 unit) tablet (Calcium 500 + D) 1 tab PO BID docusate sodium 100 mg capsule (Stool Softener) 100 mg PO BID loratadine 10 mg tablet 10 mg PO QAM Take morning of surgery With a small sip of water, OTHERWISE NOTHING TO EAT OR DRINK AFTER MIDNIGHT: atorvastatin 20 mg tablet 20 mg PO QAM azelastine 137 mcg-fluticasone 50 mcg spray,susp-NaCl 0.9% spray nasal 1 ea INTRANASAL QAM famotidine 20 mg tablet 20 mg PO DAILY PRN (if needed) levothyroxine 75 mcg tablet 75 mcg PO QAM Take evening before surgery ascorbic acid (vitamin C) 1,000 mg tablet,extended release (Vitamin C ER) 1,000 mg PO HS calcium carbonate 500 mg-vitamin D3 10 mcg (400 unit) tablet (Calcium 500 + D) 1 tab PO BID docusate sodium 100 mg capsule (Stool Softener) 100 mg PO BID famotidine 20 mg tablet 20 mg PO DAILY PRN (if needed) fluticasone propionate 50 mcg/actuation nasal spray,suspension 1 spray INTRANASAL HS Other Notes If you have any questions please call us at [phone] or [phone] or [phone] or [phone]
--- NOTE | 2021-11-22 09:39 | Anesthesiology Consultation ---
Date of Service November 22, 2021 Assessment & Plan (1) Encounter for pre-operative examination: - COVID screening: Per assessment on 11/22: No known COVID-19 positive contacts or current COVID-19 related symptoms. Travel screen negative. Patient gm albert. Surgeon arranging preop COVID testing. Awaiting results. - Check BSG AM DOS - S/P right bipolar hip prosthesis (04/27/17): SAB at L3/4 x1 attempt at [facility] Chart Review Chart Review: Acceptable Risk for Surgery and Patient seen in Pre Admission Testing Teaching & Discussion Pre-Anesthesia Teaching/Discussion Notes: Instructed NPO after midnight before surgery,except medications with 15 cc of water. Medication instructions provided according to the PAT guidelines. History Surgery Operation Date: 12/19/21 10:40 Proposed Procedures p Left Total Hip Replacement with Hardware Removal - Eugene Newton MD Height/Weight Height: 5 ft Weight: 66.6 kg Allergies Allergy/AdvReac Type Severity Reaction Status Date / Time nickel Allergy Intermediate Rash Verified 11/19/21 12:13 lisinopril AdvReac Intermediate Dizziness Verified 11/20/21 15:50 Medications Home Medications Medication Instructions Recorded Confirmed Last Taken amoxicillin 500 mg tablet 2,000 mg PO ONCE #4 tab 11/14/21 11/19/21 Unknown ascorbic acid (vitamin C) 1,000 mg 1,000 mg PO HS 11/19/21 11/19/21 Unknown tablet,extended release (Vitamin C ER) aspirin 325 mg tablet 325 mg PO HS 11/19/21 11/19/21 Unknown atorvastatin 20 mg tablet 20 mg PO QAM 11/19/21 11/19/21 Unknown azelastine 137 mcg-fluticasone 50 1 ea INTRANASAL QAM 11/19/21 11/19/21 Unknown mcg spray,susp-NaCl 0.9% spray nasal calcium carbonate 500 mg-vitamin 1 tab PO BID 11/19/21 11/19/21 Unknown D3 10 mcg (400 unit) tablet (Calcium 500 + D) docusate sodium 100 mg capsule 100 mg PO BID 11/19/21 11/19/21 Unknown (Stool Softener) famotidine 20 mg tablet 20 mg PO DAILY PRN 11/19/21 11/19/21 Unknown fluticasone propionate 50 1 spray INTRANASAL HS 11/19/21 11/19/21 Unknown mcg/actuation nasal spray,suspension levothyroxine 75 mcg tablet 75 mcg PO QAM 11/19/21 11/19/21 Unknown loratadine 10 mg tablet 10 mg PO QAM 11/19/21 11/19/21 Unknown omega-3 fatty acids 1,000 mg PO BID 11/19/21 11/19/21 Unknown Past Medical History Medical History Chronic sinusitis GERD (gastroesophageal reflux disease) Hyperlipidemia Hypertension no current medications Hypothyroidism Pre-diabetes Transient ischemic attack (TIA) 2015 Exercise / Class Metabolic Activity II 4-5 Yardwork/Stairs/Walk up hill (one FS (no CP, no SOB)) Past Family History Family History Other No family history of adverse response to anesthesia Past Surgical History Surgical History (Updated 11/22/21 @ 10:09 by Lenore Rodríguez) History of colonoscopy History of dilatation and curettage History of tonsillectomy S/P bunionectomy S/P hammer toe correction S/P ORIF (open reduction internal fixation) fracture left hip pinning (1999) right bipolar hip prosthesis (04/27/17): SAB at L3/4 x1 attempt at [facility] Past Anesthesia History No Hx of Anesthesia Complications and No Family Hx of Anesthesia Complications History of PONV No Hx of PONV and No Hx of Motion Sickness Social History Smoking Status: Never smoker Do You Dip or Chew Tobacco: No Hx Alcohol Use: No Hx Substance Use: No substance use type: does not use Review of Systems Patient denies chest pain, shortness of breath, dyspnea on exertion, fever, chills, cough, wheezing, palpitations. Physical Exam Vital Signs VITALS BP 182/81 > 142/82 with manual recheck P 84 TEMP 98.6 SP02 96%RA RESP 16 PHYSICAL Full cervical extension range of motion. Full TMJ range of motion. TMD 3 finger breaths Mallampati Score 3 Dentition: missing molar, several crowns Lungs: clear throughout to auscultation Cardiac: regular rate and rhythm, no murmurs noted Spine: normal Carotid arteries: negative bruit Extremities: no edema Lab Results Anesthesia Preop Results Results Anesthesia Widget: WBC 7.08 K/uL (4.8-10.8) 11/22/21 Hgb 15.5 g/dL (12.0-16.0) 11/22/21 Hct 45.9 % (37-47) 11/22/21 Plt 188 K/uL (130-400) 11/22/21 Na 141 mmol/L (136-145) 11/22/21 K 4.1 mmol/L (3.5-5.1) 11/22/21 Cl 106 mmol/L (98-107) 11/22/21 CO2 30 mmol/L (21-32) 11/22/21 BUN 26 mg/dl (6-23) H 11/22/21 Creat 0.94 mg/dl (0.6-1.2) 11/22/21 Glucose Level 121 mg/dl (70-99(Fasting)) H 11/22/21 PT 10.5 Seconds (9.0-12.0) 11/22/21 PTT 25.3 Seconds (21.0-31.0) 11/22/21 INR 1.0 (0.9-1.1) 11/22/21 Blood Type A Positive 11/22/21 Antibody Screen NEGATIVE 11/22/21 Testing Electrocardiogram Date: 11/22/21 NSR at 81bpm. iRBBB. unconfirmed report. Chest X-Ray Date: 11/22/21 Findings: + NAD Echocardiogram Date: 08/01/16 EF 65-70%. No regional wall motion abnormality. Mild TR.
--- NOTE | 2021-12-15 10:45 | History and Physical Report ---
DATE OF ADMISSION: 12/19/2021. CHIEF COMPLAINT: Left hip pain and discomfort. HISTORY OF PRESENT ILLNESS: A 76-year-old fairly active female well known to me from previous right bipolar hip done for fracture in 2016. She does have a history of a left hip fracture treated by Dr. Johny saenz in 1999 with cannulated screw fixation. She did well from this, but over the past year, she developed increased pain and discomfort in her left hip. She is actually resorted to using a ca ne for the past 9 months. She describes groin pain, thigh pain. The more she is up and on it, the m ore it hurts. She limps more as the day goes on. She would like to have her hip fixed. PAST MEDICAL HISTORY: Significant for: 1. Sleep apnea. 2. History of TIA without sequelae. 3. Hypothyroidism. 4. Gastroesophageal reflux disease. PAST SURGICAL HISTORY: Includes: 1. Left hip cannulated screw fixation done on 01/19/2000. 2. Right bipolar hip arthroplasty done on 04/27/2017. 3. Bunion surgery. ALLERGIES: LISINOPRIL. CURRENT MEDICATIONS: 1. Vitamin C. 2. Aspirin. 3. Atorvastatin. 4. Azelastine. 5. Nasal spray. 6. Calcium. 7. Fluticasone nasal spray. 8. Levothyroxine. 9. Loratadine. 10. [place] 3. 11. Zoster vaccine. SOCIAL HISTORY: A 76-year-old female. She does not smoke. No significant alcohol intake. She is m arried and has a who can help her recover. FAMILY HISTORY: Noncontributory. REVIEW OF SYSTEMS: Significant for this TIA. No sequelae. No chest pain or shortness of breath. N o history of DVT or PE. No known bleeding problems. PHYSICAL EXAMINATION: GENERAL: Shows a pleasant, elderly female. Looks to be in reasonably good health. HEENT: Benign. NECK: Supple. No lymphadenopathy. LUNGS: Clear to auscultation. HEART: Regular rate and rhythm. ABDOMEN: Soft, nontender, nondistended. EXTREMITIES: Grossly neurovascularly intact except as follows. Examination of the left hip revealed patient walks with use of a cane. Clinically, her left leg appe ars about a 0.5 cm shorter than right. She has very limited hip motion with pain. Internally rotate the knee to neutral. No knee effusion. She is neurologically intact. X-RAYS: X-rays of the left hip reveal advanced hip arthritis in the left side. She has got cannulat ed screws in the femur. She has got complete loss of superior joint space. A little bit of subluxat ion of the femoral head. X-rays of the right hip reveals cemented bipolar hip arthroplasty in good position. ASSESSMENT: A 76-year-old white female with multiple medical comorbidities including a history of tr ansient ischemic attack in the past without sequelae, sleep apnea, gastroesophageal reflux disease, n ow 22 years out from cannulated screw fixation of femoral neck fracture on the left side with advance d hip arthritis. She would like to have this fixed. Right bipolar hip is doing well. PLAN: We are going to do a left total hip replacement. We will have to take out the screws as well. The risks and benefits of this procedure were explained to the patient and include but not limited to DVT, PE, , infection, neurological injury, vascular injury, bleeding problem, pain, limited r deanna of motion, stiffness, failure to relieve her symptoms, incomplete relief of symptoms, fracture, dislocation, etc. The patient understands and desires to proceed. Informed consent was obtained. Based on her bone structure, we will either do an uncemented implant, which we can do a titanium. We will do a cemented implant, which may have a small amount of nickel. She does apparently have some d egree of NICKEL ALLERGY. She has done well from the bipolar hip on her other side and that should no t be a problem. We will avoid this if possible. As far as discharge plans, she is planning to be discharged to home using [facility]. Job ID: [id number]
[2021-12-19] MEDS ORDERED: ceFAZolin 2000MG 2,000 MG/15 ML SYR IV SCH (06:00)
[2021-12-19] MEDS ORDERED: GABAPENTIN 300 MG CAP PO SCH (06:00)
[2021-12-19] MEDS ORDERED: ACETAMINOPHEN 500 MG TAB PO SCH (06:00)
[2021-12-19] MEDS ORDERED: LR 60ML/HR IV SCH (06:00)
[2021-12-19] MEDS ORDERED: LR 500ML BOLUS, THEN 15ML/HR IV SCH (06:00)
[2021-12-19] MEDS ORDERED: FAMOTIDINE 20 MG TAB PO SCH (06:00)
[2021-12-19] MEDS ORDERED: TRANEXAMIC ACID 1,000 MG **IV Pre-op IV SCH (06:00)
[2021-12-19] MEDS ORDERED: BUPIVACAINE 0.5 % 5 MG/1 ML PF 10ML VIAL ONE (06:27)
[2021-12-19] MEDS ORDERED: MIDAZOLAM HCL 1 MG/ML 2ML VIAL ONE (06:36)
[2021-12-19] MEDS ORDERED: EPINEPHrine INJ 1 MG/ML AMP ONE (06:41)
[2021-12-19] MEDS ORDERED: BUPIVACAINE 0.5 % 5 MG/1 ML MPF 30ML VIAL ONE (06:41)
[2021-12-19] MEDS ORDERED: ePHEDrine sulfate 50 MG/ML AMP IV PRN (06:44)
[2021-12-19] MEDS ORDERED: ONDANSETRON INJ 2 MG/ML 2 ML VIAL IV PRN ×2 (06:44→11:14)
[2021-12-19] MEDS ORDERED: ATROPINE SULFATE 0.1 MG/ML 10ML SYR IV PRN (06:44)
[2021-12-19] MEDS ORDERED: fentaNYL citrate 100 MCG/2 ML VIAL IV PRN (06:44)
--- NOTE | 2021-12-19 06:53 | History & Physical Bridge Note ---
Date of Service December 19, 2021 History & Physical Bridge Note I have examined the patient, reviewed the History & Physical and in the interval since the performance of the History & Physical I have noted the following changes of clinical significance: no changes noted
[2021-12-19] MEDS ORDERED: PROPOFOL IV EMULSION 10 MG/ML 20 ML VIAL IV ONE (07:14)
[2021-12-19] MEDS ORDERED: ePHEDrine sulfate 50 MG/ML AMP ONE (07:39)
--- NOTE | 2021-12-19 09:06 | Operative Report ---
PG Post Operative Report Pre & Post Diagnosis Operation Date: 12/19/21 07:00 Pre-Op Diagnosis: Left hip osteoarthritis status post cannulated screw fixation of a femoral neck fracture Post-Op Diagnosis: Left hip osteoarthritis status post cannulated screw fixation of a femoral neck fracture I identified the patient and participated in the time-out.: Yes Procedure Operation Date: 12/19/21 07:00 Actual Procedures p Left Total Hip Replacement Cemented with Hardware Removal(Left) - Eugene Newton MD Surgeon Eugene Newton MD Pulp Piler Floyd Lopez PA-C Estimated Blood Loss 200 Findings Consistent with Post-Op Diagnosis Operative findings revealed advanced left hip arthritis. She had grade 4B disease of the superior aspect of the femoral head. She had subluxation of the femoral head and the acetabulum. Small periacetabular osteophytes. Moderate- sized joint effusion. Fluids 1000 cc Specimens Left femoral head sent for pathology Anesthesia Type Spinal MAC Complications none Disposition Accompanied Patient To Recovery: Yes Indications Patient is a 76-year-old female who is 22 years out from cannulated screw fixation of a femoral neck fracture. She did pretty well until just a couple years ago when she started having increasing pain and discomfort is gotten markedly worse over the past year. She was having trouble getting around and h ad to use an assistance device to ambulate. X-rays show progressive hip arthritis. She elected proceed with total hip arthroplasty. Of note, the patient also has a history of a right femoral neck fracture on the right and has cemented bipolar hip arthroplasty. Therefore, she is a broken both of her femoral necks in the past and due to her increase her risk of fracture we used a cemented stem to decrease and mitigate this chance. Patient apparently also has some degree of a nickel allergy. Sounds pretty minor and she is done well with the bipolar hip which is stainless steel implant. We did elect to place a ceramic head in order to try to minimize the amount of stainless steel matter that she would be exposed to. Description of Procedure Operative implants consist of: 1. Biomet G7 size 50 mm acetabular shell. 2. [place] hole water resources technical officer. 3. 6.5 cancellous acetabular screws 1 of 35 mm length 1 of 20 mm length. 4. Highly cross-linked polyethylene liner with a 50 mm outer diameter 36 mm diameter. 5. DePuy Esmeralda size 2 standard offset cemented femoral stem. 6. +1.5/36 mm ceramic articular ball. The patient was taken to the operating, identified, placed on the operating table supine position protectors were properly padded. Spinal anesthetic and been implemented holding area. Loya catheter was placed in sterile fashion. P atient then placed in the right lateral decubitus position. An axillary roll was placed. A Stulberg hip positioner was used for positioning. Left hip and leg were then prepped and draped in usual sterile fashion. A posterior lateral approach to the left hip was then performed to a curvilinear incision centered over the greater trochanter. Sharp dissection was carried through subcutaneous tissue down to the IT band gluteal fascia. The IT band gluteal fascia incised longitudinally in line with skin incision. The underlying greater bursa was excised. The piriformis and external rotators a long with the posterior hip joint capsule were then released from the posterior aspect hip as a single layer. Great care was taken throughout the procedure protect the sciatic nerve at all times. Hip was internally rotated and dislocated. Once we are able to dislocate this I did relocate that and then proceed with hardware removal. With palpation of the lateral aspect of femur I could not locate the screws. I made a stab incision right over the screw heads of each screw through the vastus lateralis. All 3 screws were then backed out without difficulty. Attention then drawn to back to the hip replacement. The hip was internally rotated and dislocated. Femoral neck osteotomy cut was made with Final Cut about 10 mm above the lesser trochanter. Femoral head was noted and sent for pathology. Femur was retracted anteriorly. Attention drawn the acetabulum. The acetabular labrum was excised. The pulmonary fat was excised. Sequential reaming the acetabular was then performed again with size 43 and progressing up to a 49. I did ream some with a 50 reamer and then placed a 50 mm cup in about 40 degrees lateral opening and 20 to 25 degrees of anteversion. I did want to maximize her stability so we put a little more anteversion in the cup. Some small anterior osteophytes removed. The cup was fixed with 266.5 cancellous acetabular screws. Trial liner was placed. Attention drawn the femur. Proximal. Done with a Sensegon cutter followed by canal finder and lateralizing reamer. Then broached begin the size 1 and progressing up to. The 2 was pretty tight and I could not quite get that down. We trialed the hip and the +5 articular ball just seemed a little too tight. With the +1.5 articular ball the hip was fully stable and leg length seemed appropriate and soft tissue tension seemed appropriate. I elect to place these implants. All trial implants were removed. An apex hole water resources technical officer was placed. Highly cross-linked polyethylene liner was placed. A small cement restrictor was placed distally. We did have to tap this down a little bit further. It was fairly narrow canal. After assessing the situation I did not think the centralizer was appropriate tested would not allow the stem to go down and it hit on the cortices. Therefore, we took with centralizer off the stem. We did mix a double batch [place] G cement was mixed and injected in the canal. A size 2 Esmeralda cemented standard offset femoral stem was then placed. All extraneous cement was removed. The implant was held until cement hardened. A +1.5/36 mm ceramic articular ball was placed and the hip was located. Hip was fully stable. Leg lengths appeared appropriate. We elected to proceed with closure. The wound was irrigated scope sounds pulsatile lavage solution. I did inject l ocally with 50 cc of half percent Marcaine with epinephrine. The posterior capsule and external rotators were repaired through drill holes in the posterior trochanter as a single layer. The IT band gluteal fascia then closed #1 PDS suture running fashion for subcutaneous tissue then closed 2 layers with a deep layer #1 Vicryl suture subcutaneous tissues with 2-0 Dexon suture in a buried interrupted fashion. Skin was closed skin courtney. Leg was then cleaned and dried a sterile dressing was Xeroform, 4 x 4's, ABD pad, foam tape was applied. Patient then transferred to the recovery room in stable condition. Patient tolerated procedure well and there were no complications. Floyd Lopez, my physician research assistant member, was present for the entire procedure. His assistance was essential and required for appropriate patient positioning, prepping and draping, surgical exposure, performing the technical details of the operation, placement the implants, closure of the wound, and placement of the sterile bandage. I attest to the content of the Intraoperative Record and any orders documented therein. Any exceptions are noted below.
--- NOTE | 2021-12-19 09:26 | XRay Report ---
XR hip 1V LT w pelvis CLINICAL HISTORY: IN PACU - A/P PELVIS and LATERAL HIP TECHNIQUE: 2 views of the left hip and single frontal view of the pelvis were obtained. Comparison: None available at the time of this dictation. FINDINGS: Patient is status post total hip arthroplasty with expected postsurgical changes including soft tissu e swelling, subcutaneous emphysema, and surgical staple placement. No periarticular lucency or hardwa re fracture is seen. Unchanged right total hip arthroplasty. IMPRESSION: Expected postoperative appearance status post placement of total hip arthroplasty. ACT 112: Negative or not required by law. Electronically signed by: Emli Menendez M.D. 12/19/2021 9:25 AM
--- NOTE | 2021-12-19 09:28 | Anesthesiology Progress Note ---
Date of Service December 19, 2021 Anesthesia Post Procedure Vital Signs Vital Signs: Temp Pulse Pulse Resp BP Pulse Ox 12/19/21 09:25 86 14 155/74 H 96 12/19/21 09:15 93 H 16 162/82 H 100 12/19/21 09:05 90 15 151/86 H 100 12/19/21 08:55 99.3 F 88 9 L 138/69 100 12/19/21 05:44 98.4 F 88 20 200/98 H 95 Transfer of Care Handoff Completed per policy Notes Mental Status: alert / awake / arousable and participated in evaluation Patient Amnestic to Procedure: Yes Nausea / Vomiting: adequately controlled Pain: adequately controlled Airway Patency, RR, SpO2: stable & adequate BP & HR: stable & adequate Hydration State: stable & adequate Neuraxial Anesthesia: was administered and sensory block is resolving Anesthetic Complications: no major complications apparent and Pt Satisfied with anesthetic care
[2021-12-19] MEDS ORDERED: bisacodyL 10 MG SUPP PR PRN (11:14)
[2021-12-19] MEDS ORDERED: NALOXONE HCL 0.4 MG/1 ML VIAL/CARP IV PRN (11:14)
[2021-12-19] MEDS ORDERED: MAGNESIUM HYDROXIDE SUSP 30 ML UDC PO PRN (11:14)
[2021-12-19] MEDS ORDERED: DOCUSATE SODIUM 100 MG CAP PO SCH (11:14)
[2021-12-19] MEDS ORDERED: METOCLOPRAMIDE HCL INJ 5 MG/ML 2 ML VIAL IV PRN (11:14)
[2021-12-19] MEDS ORDERED: [UNRECOGNIZED DRUG - MIXTURE] INTNAS SCH (11:14)
[2021-12-19] MEDS ORDERED: ALUMINUM/MAGNESIUM SUSP 30 ML UDC PO PRN (11:14)
[2021-12-19] MEDS ORDERED: FAMOTIDINE 20 MG TAB PO PRN (11:14)
[2021-12-19] MEDS: SODIUM CHLORIDE 0.9% 1000ML 1,000 ML IV SCH ×2 (11:26→21:28)
[2021-12-19] MEDS: KETOROLAC TROMETHAMINE 15 MG/ML VIAL IV SCH ×3 (12:03→23:34)
[2021-12-19] MEDS: ATORVASTATIN 20 MG TAB PO SCH (12:05)
[2021-12-19] MEDS: HYDROmorphone INJ 0.5 MG/0.5 ML SYR IV PRN (12:46)
[2021-12-19] MEDS: MULTIVITAMIN TAB PO SCH (12:47)
[2021-12-19] MEDS: DOCUSATE SODIUM 100 MG CAP PO SCH ×2 (12:48→21:31)
[2021-12-19] MEDS: ASPIRIN 81 MG ECTAB PO SCH ×2 (12:48→21:30)
[2021-12-19] MEDS: OMEGA-3 (PURIFIED FISH OIL) 1 GM CAP PO SCH ×2 (12:49→21:31)
[2021-12-19] MEDS: ACETAMINOPHEN 500 MG TAB PO SCH ×2 (14:34→21:30)
[2021-12-19] MEDS ORDERED: TRANEXAMIC ACID / 0.7% NACL 1,000 MG/100 ML BAG IV SCH (15:00)
[2021-12-19] MEDS: ceFAZolin 1000MG 1,000 MG/7.5 ML SYR IV SCH ×2 (15:11→23:35)
[2021-12-19] MEDS: ASCORBIC ACID 500 MG TAB PO SCH (16:59)
[2021-12-19] MEDS ORDERED: OMEGA-3 (PURIFIED FISH OIL) 1 GM CAP PO SCH (21:00)
[2021-12-19] MEDS ORDERED: NON-FORMULARY MEDICATION (Ascorbic Acid (Vitamin C) [Vitamin C] 1,000 mg Tablet Extended R PO SCH (21:00)
[2021-12-19] MEDS: FLUTICASONE PROPIONATE NA SPR 16 GM BTL NAE SCH (21:29)
[2021-12-19] MEDS: SENNA 8.6 MG TAB PO SCH (21:29)
[2021-12-19] MEDS: CALCIUM 600MG + VIT D 400 IU TAB PO SCH (21:31)
[2021-12-20] MEDS: HYDROmorphone INJ 0.5 MG/0.5 ML SYR IV PRN (03:53)
[2021-12-20] MEDS: ACETAMINOPHEN 500 MG TAB PO SCH ×3 (05:40→20:32)
[2021-12-20] MEDS: LEVOTHYROXINE SODIUM 75 MCG TABLET PO SCH (05:41)
[2021-12-20] MEDS: KETOROLAC TROMETHAMINE 15 MG/ML VIAL IV SCH ×4 (05:41→23:32)
[2021-12-20 06:19] LABS: Basophils # (auto) 0.02 K/uL (0-0.2); Basophils % (auto) 0.2 %; Eosinophils # (auto) 0.22 K/uL (0-0.5); Eosinophils % (auto) 1.8 %; Hematocrit (blood only) 39.8 % (37-47); Hemoglobin 13.5 g/dL (12.0-16.0); Immature Granulocytes # (auto) 0.03 K/uL (0.00-0.02); Immature Granulocytes % (auto) 0.2 %; Lymphocytes # (auto) 1.29 K/uL (1.2-3.4); Lymphocytes % (auto) 10.7 %; Mean Corpuscular Hemoglobin 33.3 pg (25-34); Mean Corpuscular Hgb Conc 33.9 g/dL (32-36); Mean Platelet Volume 10.6 fL (7.4-10.4); Monocytes % (auto) 9.1 %; Platelet Count 170 K/uL (130-400); RDW Coefficient of Variation 13.1 % (11.5-14.5); RDW Standard Deviation 46.8 fL (36.4-46.3); Red Blood Count 4.06 M/uL (4.2-5.4); White Blood Count 12.06 K/uL (4.8-10.8)
[2021-12-20 06:47] LABS: BUN Creatinine Ratio 21.5 (10-20); Calcium 8.5 mg/dl (8.5-10.1); Creatinine Clr Calc Pharmacy 60.8 ml/min; Est GFR (African American) 98.6 ml/min; Potassium 3.7 mmol/L (3.5-5.1)
[2021-12-20] MEDS ORDERED: dexAMETHasone 10 MG in SYRINGE 0 ML IV SCH (08:00)
[2021-12-20] MEDS: MULTIVITAMIN TAB PO SCH (08:01)
[2021-12-20] MEDS: DOCUSATE SODIUM 100 MG CAP PO SCH ×2 (08:01→20:31)
[2021-12-20] MEDS: ATORVASTATIN 20 MG TAB PO SCH (08:01)
[2021-12-20] MEDS: ASPIRIN 81 MG ECTAB PO SCH ×2 (08:01→20:31)
[2021-12-20] MEDS: OMEGA-3 (PURIFIED FISH OIL) 1 GM CAP PO SCH ×2 (08:01→20:31)
[2021-12-20] MEDS: CALCIUM 600MG + VIT D 400 IU TAB PO SCH ×2 (08:01→20:32)
[2021-12-20] MEDS: traMADol HCL 50 MG TABLET PO PRN ×2 (08:01→23:45)
[2021-12-20] MEDS: LORATADINE 10 MG TAB PO SCH (08:01)
[2021-12-20] MEDS: ASCORBIC ACID 500 MG TAB PO SCH ×2 (08:02→17:38)
--- NOTE | 2021-12-20 08:02 | Progress Notes ---
DATE OF SERVICE: 12/20/2021. SUBJECTIVE: A 76-year-old female postoperative day 1 from a left hybrid total hip arthroplasty. She is doing pretty well. Some pain, but manageable. No chest pain, no shortness of breath. Not feeli ng dizzy or lightheaded. OBJECTIVE: VITAL SIGNS: Temperature 36.7. Vital signs are stable. GENERAL: Physical examination shows a pleasant, elderly female, sitting up in bed, looks reasonably comfortable this morning. She is awake, alert and oriented. LUNGS: Clear to auscultation. HEART: Has a regular rate and rhythm. ABDOMEN: Soft, nontender, nondistended. EXTREMITIES: Grossly neurovascularly intact except as follows: Examination of the left hip and leg reveals the leg lengths to be equal. Dressing is clean, dry and intact. Thigh is soft and supple. She is neurologically intact. LABORATORY DATA: Hemoglobin 13.5. Hematocrit 39.8. Electrolytes are stable. ASSESSMENT: A 76-year-old female postoperative day 1 from a left hybrid total hip replacement along with some hardware removal. She is doing pretty well. Pain is controlled. Hip is located. She is neurologically intact. PLAN: 1. DVT prophylaxis includes thigh-high TEDs, SCDs, and aspirin twice a day. 2. PT/OT. She can weight bear as tolerated. Left total hip protocol. 3. Pain control, doing okay with current pain regimen. We are going to need to be careful to limit her narcotics to avoid confusion issues. 4. Disposition: She is eventually hoping to be discharged to home with some home health and her fam silverio's assistance including her at home. We will see how therapy goes today. Job ID: [id number]
[2021-12-20] MEDS: FLUTICASONE PROPIONATE NA SPR 16 GM BTL NAE SCH (20:30)
[2021-12-20] MEDS: SENNA 8.6 MG TAB PO SCH (20:31)
[2021-12-21] MEDS: KETOROLAC TROMETHAMINE 15 MG/ML VIAL IV SCH (06:02)
[2021-12-21] MEDS: LEVOTHYROXINE SODIUM 75 MCG TABLET PO SCH (06:02)
[2021-12-21] MEDS: ACETAMINOPHEN 500 MG TAB PO SCH ×2 (06:02→13:44)
[2021-12-21] MEDS: CALCIUM 600MG + VIT D 400 IU TAB PO SCH (09:11)
[2021-12-21] MEDS: DOCUSATE SODIUM 100 MG CAP PO SCH (09:11)
[2021-12-21] MEDS: LORATADINE 10 MG TAB PO SCH (09:11)
[2021-12-21] MEDS: ASCORBIC ACID 500 MG TAB PO SCH (09:11)
[2021-12-21] MEDS: OMEGA-3 (PURIFIED FISH OIL) 1 GM CAP PO SCH (09:11)
[2021-12-21] MEDS: MULTIVITAMIN TAB PO SCH (09:11)
[2021-12-21] MEDS: ASPIRIN 81 MG ECTAB PO SCH (09:11)
[2021-12-21] MEDS: ATORVASTATIN 20 MG TAB PO SCH (09:12)
[2021-12-21] MEDS: traMADol HCL 50 MG TABLET PO PRN (09:13)
--- NOTE | 2021-12-21 10:19 | Consultation ---
Date of Consultation December 21, 2021 Assessment & Plan (1) Hypertension: Nearly all readings during this admission have been high. She has a known history of HTN, previously treated up until ~1-2 years ago. Certainly left hip pain could be contributing to some of the elevated readings. However, I believe that she simply has untreated hypertension and she is at a point where she needs medication again. Plan - A review of her record shows that she previously took losartan-HCTZ. Will prescribe losartan 50mg once daily. Check BPs at home twice daily. If SBP is consistently >140 then start the medication and f/u with PCP within a few days for recheck. (2) Hip arthritis: POD #2 s/p L THR. Management per orthopedics. DVT proph - asa 81mg BID. (3) Pre-diabetes: No hemoglobin a1c is available for review. Glucose levels on routine labs have been 120-130. f/u PCP for this. (4) Hypothyroidism: Continue levothyroxine 75mcg daily. NO TSH in several years in our system but suspect she has had a level checked by her PCP in the recent past. (5) Transient ischemic attack (TIA): Noted. Cont asa for secondary prevention. (6) Hyperlipidemia: Cont atorvastatin 20mg daily. (7) GERD (gastroesophageal reflux disease): Cont pepcid prn. (8) Lymphadenopathy: I am concerned that she has cervical lymphadenopathy on examination. The lymph nodes, if present, feel pathological (fixed, large, etc). Advised f/u with PCP next week for recheck. Of note - recent cbc wnl. From medical standpoint can d/c home. Although BPs are high these can be followed carefully as outpatient. Instructions re: BP checks, losartan, etc added to d/c instructions. History of Present Illness Requesting Physician: Eugene Newton MD Reason for Consultation: uncontrolled hypertension Attending Physician: Eugene Newton MD History of Present Illness Pleasant 76yo female with past h/o HTN - previously treated but no longer on medication - hypothyroidism, and hyperlipidemia who presented for elective left AXEL by Dr Newton on 12/19/21. Post-operatively she has had left hip pain - fairly constant - and has had some troubles ambulating because of the pain. Since admission she has had labile blood pressures with many of her readings being quite high, often 175-200 systolic. She states that about 1 year ago she was taken off blood pressure medication because her values were normal/at target. Other than left hip pain she denies any chest pain, dyspnea or abd pain. She has had passage of flatus but no stool yet. There had been some discussion about going to inpatient rehab but the plan now is discharge to home with home health/therapy. Allergies Allergy/AdvReac Type Severity Reaction Status Date / Time nickel Allergy Intermediate Rash Verified 12/19/21 05:28 lisinopril AdvReac Intermediate Dizziness Verified 12/19/21 05:28 Home Medications Medication Instructions Recorded Confirmed Type amoxicillin 500 mg tablet 2,000 mg PO ONCE #4 tab 11/14/21 12/19/21 Rx ascorbic acid (vitamin C) 1,000 mg 1,000 mg PO HS 11/19/21 12/19/21 History tablet,extended release (Vitamin C ER) atorvastatin 20 mg tablet 20 mg PO QAM 11/19/21 12/19/21 History azelastine 137 mcg-fluticasone 50 1 ea INTRANASAL QAM 11/19/21 12/19/21 History mcg spray,susp-NaCl 0.9% spray nasal calcium carbonate 500 mg-vitamin 1 tab PO BID 11/19/21 12/19/21 History D3 10 mcg (400 unit) tablet (Calcium 500 + D) docusate sodium 100 mg capsule 100 mg PO BID 11/19/21 12/19/21 History (Stool Softener) famotidine 20 mg tablet 20 mg PO DAILY PRN 11/19/21 12/19/21 History fluticasone propionate 50 1 spray INTRANASAL HS 11/19/21 12/19/21 History mcg/actuation nasal spray,suspension levothyroxine 75 mcg tablet 75 mcg PO QAM 11/19/21 12/19/21 History loratadine 10 mg tablet 10 mg PO QAM 11/19/21 12/19/21 History omega-3 fatty acids 1,000 mg PO BID 11/19/21 12/19/21 History acetaminophen 500 mg capsule 1,000 mg PO TID 30 Days #180 cap 12/17/21 12/19/21 Rx aspirin 81 mg tablet,delayed 81 mg PO BID 45 Days #90 tab 12/17/21 12/19/21 Rx release (Aspirin Low Dose) ondansetron HCl 4 mg tablet 4 mg PO Q6 PRN #20 tab 12/17/21 Rx sennosides 8.6 mg-docusate sodium 1 tab-cap PO DAILY #14 tab 12/17/21 Rx 50 mg tablet (Senokot-S) tramadol 50 mg tablet 50 mg PO Q6H PRN #30 tab 12/17/21 Rx losartan 50 mg tablet 50 mg PO DAILY #30 tab 12/21/21 Rx Patient History Medical History (Updated 12/21/21 @ 20:24 by Benito Willis) Chronic sinusitis GERD (gastroesophageal reflux disease) Hyperlipidemia Hypertension no current medications Hypothyroidism Pre-diabetes Transient ischemic attack (TIA) 2015 Surgical History History of colonoscopy History of dilatation and curettage History of tonsillectomy S/P bunionectomy S/P hammer toe correction S/P ORIF (open reduction internal fixation) fracture left hip pinning (1999) right bipolar hip prosthesis (04/27/17): SAB at L3/4 x1 attempt at [facility] Family History Mother , age 68 Renal failure Father , age 78 Colorectal cancer Other No family history of adverse response to anesthesia Social History (Updated 12/21/21 @ 20:18 by Benito Willis) Smoking Status: Never smoker Second Hand Exposure: No; Hx Alcohol Use: No Hx Substance Use: No Preferred Language: Japanese Communication Ability: Effective Sprigger Required: No Beliefs That Will Affect Care: None marital status: Current Living Situation: Spouse Current Living Situation Comment: lives in [place] with current occupational status: 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 Feels Safe at Home: Yes Assistive Devices: Walker Review of Systems Review of Systems: gen - no fevers, eating well HENT - no dysphagia CV - no chest pain pulm - no cough, no dyspnea GI - no abd pain, nausea, or emesis; still no stool but passing flatus - no voiding issues or dysuria musculo - left hip pain only; no back pain skin - no rash endo - endorses pre-diabetes neuro - no focal motor weakness, no paresthesias Physical Exam Physical Exam: gen - NAD, pleasant eyes - PERRL HENT - MMM, no lesions neck - suspected lymphadenopathy b/l neck, especially overlying the left sternocleidomastoid muscle heart - RRR, s1 s2, no murmur lungs - CTA b/l abd - soft, NT, ND, BS+ ext - left hip dressings intact, pulses feet 2+ b/l skin - no rash neuro - strength 5/ x 4 exts psych - a/o x 3 Results & Data ([facility]) Vital Signs (Past 12 Hours) Vital Signs Temp Pulse Resp BP BP Pulse Ox 12/21/21 07:12 36.5 C 82 18 149/76 H 93 12/21/21 06:07 165/86 H 12/21/21 02:19 36.7 C 88 18 198/82 H 96 12/20/21 23:00 94 H 226/131 H Laboratory Results recent labs 12/20/21 - CBC, BMP - wnl PG Care Time/CCT Total # of Minutes Spent Total Time Spent with Patient: Total time spent is greater than 50% in coordination of care (as documented) at patient's floor/unit and/or counseling patient: Coding Level of Care Code 43941 Subseq Obs Care Lvl 3 Diagnoses Hypertension I10 Hip arthritis M16.10 Pre-diabetes R73.03 Hypothyroidism E03.9 Transient ischemic attack (TIA) G45.9 Hyperlipidemia E78.5 GERD (gastroesophageal reflux disease) K21.9 Lymphadenopathy R59.1
--- NOTE | 2021-12-21 11:12 | Progress Notes ---
DATE OF NOTE: 12/19/2021 SUBJECTIVE: A 76-year-old female now postop day 2 from a left hip hardware removal and hybrid total hip replacement. She is doing better today. Pain is much improved. She is getting around better. No chest pain or shortness of breath. She is now hoping to go to rehabilitation. OBJECTIVE: VITAL SIGNS: Temperature 36.7. Vital signs are stable. GENERAL: Shows a pleasant, elderly female. Sitting up in her bedside chair, looks pretty comfortabl e this morning. EXTREMITIES: Examination of the left hip reveals dressing to be clean, dry and intact. Leg lengths are equal. Thigh is soft and supple. She is neurologically intact. ASSESSMENT: A 76-year-old white female postoperative day 2 from a left hybrid total hip replacement and hardware removal. She seems to be doing better today. She is now hoping to go to rehabilitation . PLAN: 1. DVT prophylaxis includes thigh-high TEDs, SCDs, and aspirin twice a day. 2. PT, OT, weightbear as tolerated. Left total hip protocol. 3. Pain control, doing okay with current pain regimen. 4. Disposition: Now hoping to go to rehabilitation. We will have social service worker start working on her this morning. Job ID: [id number]
== END 2021-12-21 14:24 | disposition home health service (06) ==
LOC: 3E 04:58 → ASU 04:58

== ENCOUNTER 2025-07-06 23:36 | Inpatient (IN) ==
--- NOTE | 2025-07-06 23:55 | Emergency Department Note ---
Impression & Plan Fall, Acute pain of left hip, CHI (closed head injury), Closed fracture of pubic ramus, Compression fracture of lumbar vertebra ED Provider Note ED Provider Note NAME: LEILA ROA AGE:80 SEX: Female : 1945 ARRIVES VIA: EMS INFORMANT: Patient ED PROVIDER(s): Carli Vincent DO CHIEF COMPLAINT: fall, left hip pain HPI: This is an 80-year-old female who presents to the emergency department due to concern for left hip pain following an accidental fall. Patient states she was returning to the bathroom with her walker and was trying to turn around to get into bed and somehow became off balance and fell. She states she did strike her head on the floor although did not lose consciousness. Staff was there very quickly to assess her and helped her back up. She states she has pain in the left hip but points to the left anterior thigh while saying this. She states she also has pain in her low back worse on the left than the right. Patient denies any other pain into her extremities bilaterally, denies neck pain, upper back pain, chest pain, difficulty breathing, abdominal pain, nausea, dizziness, vision changes. She denies any paresthesias in the lower extremities or any saddle anesthesia. Staff reported to EMS patient is at her baseline. No use of antiplatelet or anticoagulation medication. PAST MEDICAL HISTORY:See Below PAST SURGICAL HISTORY:See Below FAMILY HISTORY:See Below SOCIAL HISTORY:See Below HOME MEDICATIONS:See Below ALLERGIES:See Below VITALS:See Below PHYSICAL EXAMINATION: GENERAL: alert, well appearing, well nourished, no distress, non-toxic HEAD: nc/at EYE EXAM: normal conjunctiva, PERRL and EOM's grossly intact OROPHARYNX: no exudate, no erythema, lips, buccal mucosa, and tongue normal and mucous membranes are moist NECK: supple, no nuchal rigidity, no adenopathy, non-tender, FROM LUNGS: Clear to auscultation. Normal chest wall mechanics, no w/r/r HEART: no murmurs, S1 normal and S2 normal ABDOMEN: abdomen soft, non-tender, normo-active bowel sounds, no masses, no rebound or guarding. BACK: Back is symmetrical on inspection and there is no deformity, no midline tenderness, no CVA tenderness. SKIN: no rashes, petechiae, orbruising UPPER EXTREMITIES: upper extremities are grossly normal. FROM, nml pulses b/l. No evidence of trauma or deformity. LOWER EXTREMITIES: No pitting edema. FROM, nml pulses b/l. No pain with palpation to bilateral lower extremities specifically, no pain over the left hip with palpation. No evidence of trauma or deformity. NEURO EXAM: Normal sensorium, cranial nerves II-XII grossly intact, normal speech, no facial droop,nogross weakness of arms, no gross weakness of legs. Gross sensation intact. No ataxia. Vital Signs: reviewed and remarkable Differential Diagnosis: Fracture, subluxation, contusion, abrasion, sprain/strain, syncope, medication ADR, ambulatory dysfunction, as well as others were considered MEDICAL DECISION MAKING: This is an 80-year-old female brought in by EMS following an accidental fall at the facility where she resides when she was trying to get back into bed after going to the bathroom. Patient typically is able to ambulate independently using her walker and perform all of her usual ADLs. Patient afebrile and hemodynamically stable on arrival. Patient initially concern was pain at the left hip however points to the left anterior hip and left proximal anterior thigh as well as complains of pain in the low back. Patient initially sent for CT of the head, C-spine, and lumbar spine and x-rays performed of the pelvis and hips. Imaging read by outside radiology as negative however I was concern for occult pubic rami fracture and we did contact outside radiology to have them review the films again. They initially called back only again noting the intact hardware in the left femur. We asked them to again review the film to look specifically for a pubic rami fracture which I felt was present. They then called back requesting additional imaging to further elucidate the presence of a fracture. Patient sent for CT of the pelvis and ultimately outside radiology confirmed the presence of a new inferior left pubic rami fracture as well as likely compression fractures of the L-spine. All results were discussed with the patient and family at bedside. We did attempt to ambulate the patient at bedside however she was unable to ambulate due to pain even with assistance and use of a walker. She could not even get to a standing position. We did contact the facility regarding their capabilities for providing additional care for the patient in the short-term even though these fractures are nonoperative. Patient and family concerned about her returning to facility on a holiday given lack of appropriate staffing and need for further pain control prior to returning. Consultation(s): ER Treatment Provided: See below Diagnostics Interpreted By Me: -Cardiac Monitoring: An order was placed for continuous cardiac monitoring. The monitor shows a rate of 80 with normal sinus rhythm. -Laboratory studies: As stated above and show below. -Imaging studies: X-ray Chest: A single view study of the chest was reviewed and was negative for cardiomegaly, focal infiltrate, effusion, pulmonary edema, or wide mediastinum. Fracture, no pneumothorax. 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 Lesion of bladder Cerebrovascular disease Sensorineural hearing loss (SNHL) of both ears Incontinence (Chronic) Idiopathic polyneuropathy Vitamin D deficiency Neurologic gait disorder Encounter for pre-operative examination S/P total left hip arthroplasty Lymphadenopathy Hip arthritis Hypertension (Acute) Medical History (Updated 07/07/25 @ 15:38 by Emil Scherer DO) Presence of externally removable percutaneous endoscopic gastrostomy (PEG) tube Tracheostomy in place Cervical vertebral fracture (11/09/24) due to fall, treat at [facility], per records- pt unable to provide details [place] fracture of maxilla with nonunion (11/09/24) due to fall Extensive facial fractures with nonunion (11/09/24) had fallen, treated at [facility] Head trauma (11/09/24) due to fall- states no deficits- had trach/peg at [facility] followed by rehab stay, currently home with Cerebrovascular disease Tracheostomy in place wears oxygen at night- unsure of how many liters- states "it's a little mask" Hx: bad fall (11/09/24) life flight to [facility], had peg tube/tracheostomy- d/c to rehab facility and d/c home on december 25, 2024 Status post chemotherapy on letrozole daily AMARILIS (obstructive sleep apnea) Per records - home sleep study showed possible mild AMARILIS as well as possible central sleep apnea- scheduled for in hospital sleep study November 2024- update: pt. did not have sleep study yet Idiopathic polyneuropathy left leg Ambulatory dysfunction uses walker related to neuropathy per records Hx of transient ischemic attack (TIA) 2016 > states left leg slighlty weak History of ductal carcinoma in situ (DCIS) of breast 2021 Dizziness Long standing dizziness/chronic per records Overactive bladder GERD (gastroesophageal reflux disease) Pre-diabetes no meds Hypothyroidism Chronic sinusitis Hyperlipidemia Hypertension Labile per records Surgical History Status post tracheostomy (11/2024) had fallen on 11/09/24- life flight to [facility]- pt unsure of further details S/P percutaneous endoscopic gastrostomy (PEG) tube placement (11/2024) had fallen on 11/09/24- life flight to [facility]- pt unsure of further details History of transurethral resection of bladder tumor (TURBT) (08/20/24) Hx of surgical procedure (07/2024) Cyst removed from Bladder History of cataract surgery (2022) bilat History of right hip replacement Hx of lumpectomy Operation Date: 07/18/22 Actual Procedures: p Right Breast Biopsy with Localization Using Zo Strategy Manager Marker (Zo Strategy Manager 06-21-22), Right [place] Lymph Node Biopsy(Right) - Corby Fernandez DO H/O right breast biopsy (05/24/22) Right Breast Biopsy with Localization Using Zo Strategy Manager Marker (Zo Strategy Manager 06-21-22), Right [place] Lymph Node Biopsy(Right) - Corby Fernandez DO History of total left hip arthroplasty History of dilatation and curettage S/P hammer toe correction S/P bunionectomy History of colonoscopy (~2023) History of tonsillectomy S/P ORIF (open reduction internal fixation) fracture (1999) left hip pinning (1999) right bipolar hip prosthesis (04/27/17): SAB at L3/4 x1 attempt at [facility] Family History Mother Renal failure Stroke Father Colorectal cancer Heart disease Other No family history of adverse response to anesthesia Social History Smoking Status: Never smoker Second Hand Exposure: No; Do You Dip or Chew Tobacco: No; Hx Alcohol Use: No Hx Substance Use: No Preferred Language: Portuguese Communication Ability: Effective Visual Impairment: No Limitations Hearing Ability: Normal 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: No Beliefs That Will Affect Care: None marital status: Current Living Situation: Personal Care Facility Current Living Situation Comment: [facility] current occupational status: 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 How many Children do You have: 2 Other Information That Helps Us Care for You: No Feels Safe at Home: Yes Safety Concerns: Feels Safe At This Time Diet: regular during the past year weight has: decreased > 10 lbs Assistive Devices: Glasses and Walker Allergies Allergies Allergy/AdvReac Type Severity Reaction Status Date / Time nickel Allergy Mild Rash Verified 07/07/25 00:57 lisinopril AdvReac Intermediate Dizziness Verified 07/07/25 00:57 Home Meds Home Medications Medication Instructions Recorded Confirmed fluticasone propionate 50 2 spray intranasal QAM 11/19/21 07/07/25 mcg/actuation nasal spray,suspension (Flonase Allergy Relief) amlodipine 10 mg tablet 5 mg PO QAM 12/21/24 07/07/25 aspirin 81 mg tablet,delayed 81 mg PO QAM 12/21/24 07/07/25 release (Steven Low Dose Aspirin) atorvastatin 20 mg tablet 20 mg PO HS 12/21/24 07/07/25 letrozole 2.5 mg tablet (Femara) 2.5 mg PO QAM 12/21/24 07/07/25 loratadine 10 mg tablet (Claritin) 10 mg PO QAM 12/21/24 07/07/25 docusate sodium 50 mg capsule 100 mg PO BID 03/10/25 07/07/25 vibegron 75 mg tablet (Gemtesa) 75 mg PO QAM 03/10/25 07/07/25 acetaminophen 500 mg tablet 500 mg PO Q6H PRN PAIN/FEVER 07/07/25 07/07/25 (Tylenol Extra Strength) aluminum hydrox-magnesium carb 160 2 tab PO QID PRN Indigestion 07/07/25 07/07/25 mg-105 mg chewable tablet (Acid Gone Antacid Extra Strength) ascorbic acid (vitamin C) 500 mg 500 mg PO HS 07/07/25 07/07/25 tablet (Vitamin C) calcium 500 mg (as 1 tab PO HS 07/07/25 07/07/25 carbonate)-vitamin D3 10 mcg (400 unit) tablet (Calcium 500 + D) collagen,hydrolysate 500 mg-biotin 1 cap PO QAM 07/07/25 07/07/25 800 mcg-ascorbic acid 50 mg capsule (Collagen 1500 Plus C) cyclobenzaprine 5 mg tablet 5 mg PO Q8H PRN Pain 07/07/25 07/07/25 guaifenesin 600 mg tablet, 600 mg PO BID 07/07/25 07/07/25 extended release 12 hr (Mucus Relief ER) ibuprofen 200 mg tablet 400 mg PO Q6H PRN Pain 07/07/25 07/07/25 levothyroxine 88 mcg tablet 88 mcg PO DAILYBB 07/07/25 07/07/25 omega-3 fatty acids 1,000 mg 2,000 mg PO HS 07/07/25 07/07/25 capsule sennosides 8.6 mg tablet (senna) 8.6 mg PO BID 07/07/25 07/07/25 Results & Data (ED) Vital Signs Vital Signs - 24 hr 07/07/25 00:00 07/07/25 00:03 07/07/25 00:30 Pulse Rate 86 95 H Pulse Rate [Finger] Pulse Rate from SpO2 Sensor 94 H Pulse Rhythm [Finger] Pulse Strength [Finger] Respiratory Rate 16 19 Respiratory Effort / Characteristics Respiratory Depth Respiratory Pattern Blood Pressure 162/92 H Blood Pressure [Left Arm] Blood Pressure Mean 115 Blood Pressure Mean [Left Arm] Pulse Oximetry 95 Oxygen Delivery Method 07/07/25 00:40 07/07/25 00:49 07/07/25 00:50 Pulse Rate 96 H Pulse Rate [Finger] 84 Pulse Rate from SpO2 Sensor Pulse Rhythm [Finger] Regular Pulse Strength [Finger] Normal Respiratory Rate 14 Respiratory Effort / Characteristics Non-Labored Spontaneous Respiratory Depth Normal Respiratory Pattern Regular Blood Pressure 143/79 H Blood Pressure [Left Arm] 143/79 H Blood Pressure Mean 118 Blood Pressure Mean [Left Arm] 100 Pulse Oximetry 95 Oxygen Delivery Method Room Air 07/07/25 00:51 07/07/25 01:00 07/07/25 01:30 Pulse Rate 84 86 89 Pulse Rate [Finger] Pulse Rate from SpO2 Sensor 84 85 89 Pulse Rhythm [Finger] Pulse Strength [Finger] Respiratory Rate 14 8 L 18 Respiratory Effort / Characteristics Respiratory Depth Respiratory Pattern Blood Pressure 152/77 H 167/89 H Blood Pressure [Left Arm] Blood Pressure Mean 102 115 Blood Pressure Mean [Left Arm] Pulse Oximetry 94 96 97 Oxygen Delivery Method 07/07/25 02:00 07/07/25 02:41 07/07/25 02:42 Pulse Rate 86 100 H Pulse Rate [Finger] Pulse Rate from SpO2 Sensor 84 98 H Pulse Rhythm [Finger] Pulse Strength [Finger] Respiratory Rate 15 Respiratory Effort / Characteristics Respiratory Depth Respiratory Pattern Blood Pressure 180/98 H 168/89 H Blood Pressure [Left Arm] Blood Pressure Mean 125 129 Blood Pressure Mean [Left Arm] Pulse Oximetry 97 96 Oxygen Delivery Method 07/07/25 03:00 07/07/25 03:30 07/07/25 03:58 Pulse Rate 90 97 H 77 Pulse Rate [Finger] Pulse Rate from SpO2 Sensor 90 96 H Pulse Rhythm [Finger] Pulse Strength [Finger] Respiratory Rate 16 21 Respiratory Effort / Characteristics Respiratory Depth Respiratory Pattern Blood Pressure 165/89 H 153/91 H Blood Pressure [Left Arm] Blood Pressure Mean 114 111 Blood Pressure Mean [Left Arm] Pulse Oximetry 96 96 Oxygen Delivery Method 07/07/25 04:00 Pulse Rate 84 Pulse Rate [Finger] Pulse Rate from SpO2 Sensor 84 Pulse Rhythm [Finger] Pulse Strength [Finger] Respiratory Rate 12 Respiratory Effort / Characteristics Respiratory Depth Respiratory Pattern Blood Pressure 126/75 Blood Pressure [Left Arm] Blood Pressure Mean 92 Blood Pressure Mean [Left Arm] Pulse Oximetry 96 Oxygen Delivery Method Laboratory Data 07/07/25 04:14 07/07/25 04:14 Lab Results 07/07/25 Range/Units 04:14 WBC 10.72 (4.8-10.8) K/ul RBC 3.62 L (4.20-5.40) M/uL Hgb 12.4 (12.0-16.0) g/dL Hct 34.9 L (37.0-47.0) % MCV 96.4 (80.0-100.0) fL MCH 34.3 H (25.0-34.0) pg MCHC 35.5 (32.0-36.0) g/dL RDW Std Deviation 45.6 (36.4-46.3) fL RDW Coeff of [place] 12.8 (11.5-14.5) % Plt Count 171 (130-400) K/uL MPV 10.9 (9.4-12.4) fL Immature Gran % (Auto) 0.4 % Neut % (Auto) 69.6 % Lymph % (Auto) 16.8 % [place] % (Auto) 11.5 % Eos % (Auto) 1.4 % Baso % (Auto) 0.3 % Neut # (Auto) 7.47 H (1.40-6.50) K/uL Lymph # (Auto) 1.80 (1.20-3.40) K/uL [place] # (Auto) 1.23 H (0.11-0.59) K/uL Eos # (Auto) 0.15 (0.00-0.50) K/uL Baso # (Auto) 0.03 (0.00-0.20) K/uL Immature Gran # (Auto) 0.04 (0.01-0.20) K/uL Sodium 139 (136-145) mmol/L Potassium 3.5 (3.5-5.1) mmol/L Chloride 104 (98-107) mmol/L Carbon Dioxide 29 (21-32) mmol/L Anion Gap 6 (3-11) BUN 22 (6-23) mg/dl Creatinine 0.77 (0.6-1.2) mg/dl Est Cr Clr Drug Dosing 40.5 ml/min eGFR 76.97 BUN/Creatinine Ratio 28.6 H (10-20) Glucose 134 H (70-99(Fasting)) mg/dl Calcium 9.1 (8.6-10.3) mg/dl Total Bilirubin 0.7 (0.2-1.0) mg/dl AST 15 (13-39) U/L ALT 12 (7-52) U/L Alkaline Phosphatase 74 (34-104) U/L Total Protein 6.3 (6.0-8.3) gm/dl Albumin 3.5 (3.4-5.0) gm/dl Globulin 2.8 (2.5-4.0) gm/dl Albumin/Globulin Ratio 1.3 (0.9-2) Administered Medications Acetaminophen (Acetaminophen 500 Mg Tab) 1,000 mg PO Q8 ROBER Stop: 08/06/25 19:59 Last Admin: 07/07/25 20:35 Dose: 1,000 mg Documented By: JANNETH Amlodipine Besylate (Amlodipine Besylate 5 Mg Tab) 5 mg PO QAM ROBER Stop: 08/06/25 12:29 Last Admin: 07/07/25 12:50 Dose: 5 mg Documented By: MPS Aspirin (Aspirin 81 Mg Ectab) 81 mg PO QAM ROBER Stop: 08/06/25 12:29 Last Admin: 07/07/25 12:50 Dose: 81 mg Documented By: MPS Atorvastatin Calcium (Atorvastatin 20 Mg Tab) 20 mg PO HS ROBER Stop: 08/06/25 20:59 Last Admin: 07/07/25 20:35 Dose: 20 mg Documented By: JANNETH Enoxaparin Sodium (Enoxaparin Inj 40 Mg/0.4 Ml Syr) 40 mg SQ DAILY ROBER Stop: 08/06/25 12:29 Last Admin: 07/07/25 12:50 Dose: 40 mg Documented By: CK Ketorolac Tromethamine (Ketorolac Tromethamine 15 Mg/Ml Vial) 15 mg IV Q6 ROBER Stop: 07/12/25 16:59 Last Admin: 07/07/25 17:40 Dose: 15 mg Documented By: CK Letrozole (Letrozole 2.5 Mg Tab) 2.5 mg PO QAM ROBER Stop: 08/06/25 12:29 Last Admin: 07/07/25 15:28 Dose: 2.5 mg Documented By: MPS Co-signed By: LUIZ Vibegron (Vibegron 75 Mg Tab) 75 mg PO QAM ROBER Stop: 08/06/25 12:29 Last Admin: 07/07/25 12:50 Dose: 75 mg Documented By: MPS Discontinued Medications Acetaminophen (Acetaminophen 325 Mg Tab) 650 mg PO NOW STA Stop: 07/07/25 02:52 Last Admin: 07/07/25 03:16 Dose: 650 mg Documented By: KRYSTAL Acetaminophen (Acetaminophen 500 Mg Tab) 1,000 mg PO NOW STA Stop: 07/07/25 09:36 Last Admin: 07/07/25 10:03 Dose: 1,000 mg Documented By: MICHAEL Sodium Chloride (Nss) 500 mls @ 80 mls/hr IV .Q6H15M ROBER Stop: 07/07/25 11:59 Last Infusion: 07/07/25 12:16 Dose: Infused Documented By: Admin: 07/07/25 05:51 Dose: 80 mls/hr Documented By: KRYSTAL Ketorolac Tromethamine (Ketorolac Tromethamine 15 Mg/Ml Vial) 15 mg IV NOW ONE Stop: 07/07/25 09:31 Last Admin: 07/07/25 10:04 Dose: 15 mg Documented By: MICHAEL Lidocaine (Lidocaine 5% 1 Patch) 1 patch TD NOW STA Stop: 07/07/25 05:39 Last Admin: 07/07/25 05:51 Dose: 1 patch Documented By: KRYSTAL Imaging Data Radiologist's Impression: Cervical Spine CT 07/06/25 23:49 EXAM: CT cervical spine wo con CLINICAL HISTORY: trauma TECHNIQUE: Computed tomography of the cervical spine performed without intravenous contrast. Contiguous axial images were obtained from the skull base to T2, with sagittal and coronal reformatted images reconstructed from the axial data. CT scan was performed according to ALARA (as low as reasonable achievable). COMPARISON: 10:22:00 SIGNAL APPRENTICE . FINDINGS: Loss of cervical lordosis - suggest possibility of muscle spasm/positional. Degenerative changes involving cervical spine in the form of multilevel marginal osteophytes, disc space reduction and facetal arthrosis. Cervical vertebral bodies are normal in height and alignment, with no evidence of fracture or subluxation. Lateral masses of C1 are symmetrical, and the dens is intact. Prevertebral soft tissues are not widened. The remaining suprahyoid and infrahyoid soft tissues in the neck are unremarkable. Posterior uncovertebral arthrosis is noted at C2-C3 and C5-C6 levels, which indenting ventral thecal sac and causes bilateral neuroforaminal narrowing. Thyroid gland appears unremarkable. IMPRESSION: 1.No acute fracture or subluxation in the cervical spine. 2.Cervical spondylosis.-stable. No other new interval abnormality since prior study. Electronically signed by Simeon Bergman 07-07-2025 01:08 AM Femur X-Ray 07/06/25 23:49 EXAM: XR femur LT 2V routine CLINICAL HISTORY: trauma TECHNIQUE: Radiograph of left proximal femur was acquired. COMPARISON: None. FINDINGS: Total left hip replacement prosthesis is seen. The visualised bones show decreases bone density. No acute fracture or dislocation. No osseous or destructive lesion identified. Knee joint alignment is within normal limits. The soft tissues are unremarkable. IMPRESSION: 1. Total left hip replacement prosthesis insitu. No acute fracture or dislocation. Electronically signed by Simeon Bergman 07-07-2025 02:[address] 07/06/25 23:49 EXAM: CT head/brain wo con CLINICAL HISTORY: trauma TECHNIQUE: Multiple axial images are obtained from the skull base to the vertex without contrast. CT scan was performed according to ALARA (as low as reasonably achievable). COMPARISON: 02/25/2025 14:27:52 SIGNAL APPRENTICE . FINDINGS: There is cerebral atrophy. No evidence of space occupying lesion, hemorrhage, edema, mass effect, midline shift, extra axial collection, or hydrocephalus is noted. Basal cisterns are symmetric and normal in size and configuration. There are scattered periventricular hypodensities as can be seen with chronic microvascular ischemic changes. The manzo-white matter differentiation is preserved. Right ethmoid and right maxillary sinusitis. Rest of paranasal sinuses and mastoid air cells are well aerated. Orbital contents are within normal limits. Bony structures are intact. Mild scalp soft tissue thickening seen in left frontal region. IMPRESSION: 1. No evidence of acute intracranial abnormality is demonstrated. 2. Chronic microvascular ischemic changes.-stable. 3. Cerebral atrophy.-stable. Electronically signed by Simeon Bergman 07-07-2025 12:54 AM Hip/Pelvis X-Ray 07/06/25 23:49 EXAM: XR hip LT 2V w pelvis CLINICAL HISTORY: trauma TECHNIQUE: Radiograph of left hip was acquired. COMPARISON: 02/25/2025 14:15:09 SIGNAL APPRENTICE FINDINGS: Total left hip replacement prosthesis is seen. The visualised bones show decreases bone density. Right hip implant insitu. There is no evidence of acute fracture, dislocation or osseous lesion. Soft tissues are unremarkable. IMPRESSION: 1. Total left hip replacement prosthesis insitu. 2. No significant interval change. Electronically signed by Simeon Bergman 07-07-2025 02:[address] 07/06/25 23:49 EXAM: CT lumbar spine wo con CLINICAL HISTORY: trauma TECHNIQUE: Multiple contiguous axial images were obtained through the lumbar spine without IV contrast. Sagittal and coronal reformatted images were obtained from the axial data. CT scan was performed according to ALARA (as low as reasonably achievable). COMPARISON: None. FINDINGS: Diffuse osteopenia noted. Compression fracture is noted along the right side of superior endplate of L3, L4 and L5 vertebrae with about reduced 10%-20% height. Mild compression of T12 vertebra with adjacent sclerosis also seen - MRI correlation suggested The normal lordotic curvature of the lumbar spine is maintained. Lumbar vertebral bodies are maintained in height and alignment. No vertebral estructive changes are seen. Posterior disc osteophyte complex is noted involving L1-L2 to L5-S1 level which indenting ventral thecal sac and causes bilateral lateral recess and neural foraminal narrowing at respective levels. Paravertebral soft tissues are unremarkable. IMPRESSION: Diffuse osteopenia noted. Age indeterminate grade I anterior wedge compression fracture is noted along the right side of superior endplate of L3, L4 and L5 vertebrae with about reduced 10%-20% height. Age indeterminate mild compression of T12 vertebra with adjacent sclerosis also seen - MRI correlation suggested Lumbar spondylosis changes. Electronically signed by Simeon Bergman 07-07-2025 02:[address] 07/07/25 03:58 EXAM: CT pelvis wo con CLINICAL HISTORY: trauma, ?left pubic rami fx TECHNIQUE: Contiguous axial CT images of pelvis were obtained without intravenous contrast. Coronal and sagittal reconstructions were likewise performed and indicated to increase the sensitivity for detecting clinically relevant pathology. CT scan was performed according to ALARA (as low as reasonably achievable). COMPARISON: 06:40:26 SIGNAL APPRENTICE FINDINGS: Linear displaced fracture of left inferior pubic ramus. Compression fracture is noted along the right side of superior endplate of L3, L4 and L5 vertebrae with about reduced 10%-20% height. Bilateral total hip replacement status without loosening of prosthesis. Cortical irregularities of the left greater trochanter could be old traumatic changes/degenerative changes. Stable. The visualized muscles and tendons appear grossly unremarkable. No cortical destruction to suggest osteomyelitis. No abscess formation. No significant joint effusion. Degenerative changes of the bilateral sacroiliac joints. Stable. There are no soft tissue masses. Normal subcutaneous adipose space. IMPRESSION: Linear displaced fracture of left inferior pubic ramus.-new finding. Likely acute. Bilateral total hip replacement status without loosening of prosthesis.-stable. Compression fracture is noted along the right side of superior endplate of L3, L4 and L5 vertebrae with about reduced 10%-20% height.-new finding. Cortical irregularities of the left greater trochanter could be old traumatic changes/degenerative changes. Stable. Electronically signed by Simeon Bergman 07-07-2025 05:24 AM Discharge Plan Visit Data Chief Complaint: Fall Stated Complaint: FALL, HIP PAIN ED Provider: Carli Vincent Discharge Problem: Fall, Acute pain of left hip, CHI (closed head injury), Closed fracture of pubic ramus, Compression fracture of lumbar vertebra Patient Disposition: Admitted As Inpatient Condition: Fair Discharge Instructions Interventions: ED Discharge Assessment Last Done: 07/07/25 11:39 Discharge Problem: CHI (closed head injury) Qualifiers: Encounter type: initial encounter Qualified Code(s): S09.90XA - Unspecified injury of head, initial encounter Closed fracture of pubic ramus Qualifiers: Encounter type: initial encounter Laterality: left Qualified Code(s): S32.592A - Other specified fracture of left pubis, initial encounter for closed fracture Compression fracture of lumbar vertebra Qualifiers: Encounter type: initial encounter Lumbar vertebra fracture level: unspecified lumbar vertebra Qualified Code(s): S32.000A - Wedge compression fracture of unspecified lumbar vertebra, initial encounter for closed fracture
--- NOTE | 2025-07-07 00:54 | CT Scan Report ---
EXAM: CT head/brain wo con CLINICAL HISTORY: trauma TECHNIQUE: Multiple axial images are obtained from the skull base to the vertex without contrast. CT scan was performed according to ALARA (as low as reasonably achievable). COMPARISON: 02/25/2025 14:27:52 MAINTENANCE SCHEDULER . FINDINGS: There is cerebral atrophy. No evidence of space occupying lesion, hemorrhage, edema, mass effect, midline shift, extra axial collection, or hydrocephalus is noted. Basal cisterns are symmetric and normal in size and configuration. There are scattered periventricular hypodensities as can be seen with chronic microvascular ischemic changes. The manzo-white matter differentiation is preserved. Right ethmoid and right maxillary sinusitis. Rest of paranasal sinuses and mastoid air cells are well aerated. Orbital contents are within normal limits. Bony structures are intact. Mild scalp soft tissue thickening seen in left frontal region. IMPRESSION: 1. No evidence of acute intracranial abnormality is demonstrated. 2. Chronic microvascular ischemic changes.-stable. 3. Cerebral atrophy.-stable. Electronically signed by Simeon Bergman 07-07-2025 12:54 AM
--- NOTE | 2025-07-07 01:09 | CT Scan Report ---
EXAM: CT cervical spine wo con CLINICAL HISTORY: trauma TECHNIQUE: Computed tomography of the cervical spine performed without intravenous contrast. Contiguous axial images were obtained from the skull base to T2, with sagittal and coronal reformatted images reconstructed from the axial data. CT scan was performed according to ALARA (as low as reasonable achievable). COMPARISON: 10:22:00 ECOLOGICAL MODELER . FINDINGS: Loss of cervical lordosis - suggest possibility of muscle spasm/positional. Degenerative changes involving cervical spine in the form of multilevel marginal osteophytes, disc space reduction and facetal arthrosis. Cervical vertebral bodies are normal in height and alignment, with no evidence of fracture or subluxation. Lateral masses of C1 are symmetrical, and the dens is intact. Prevertebral soft tissues are not widened. The remaining suprahyoid and infrahyoid soft tissues in the neck are unremarkable. Posterior uncovertebral arthrosis is noted at C2-C3 and C5-C6 levels, which indenting ventral thecal sac and causes bilateral neuroforaminal narrowing. Thyroid gland appears unremarkable. IMPRESSION: 1.No acute fracture or subluxation in the cervical spine. 2.Cervical spondylosis.-stable. No other new interval abnormality since prior study. Electronically signed by Simeon Bergman 07-07-2025 01:08 AM
--- NOTE | 2025-07-07 02:09 | XRay Report ---
EXAM: XR femur LT 2V routine CLINICAL HISTORY: trauma TECHNIQUE: Radiograph of left proximal femur was acquired. COMPARISON: None. FINDINGS: Total left hip replacement prosthesis is seen. The visualised bones show decreases bone density. No acute fracture or dislocation. No osseous or destructive lesion identified. Knee joint alignment is within normal limits. The soft tissues are unremarkable. IMPRESSION: 1. Total left hip replacement prosthesis insitu. No acute fracture or dislocation. Electronically signed by Simeon Bergman 07-07-2025 02:09 AM
--- NOTE | 2025-07-07 02:09 | CT Scan Report ---
EXAM: CT lumbar spine wo con CLINICAL HISTORY: trauma TECHNIQUE: Multiple contiguous axial images were obtained through the lumbar spine without IV contrast. Sagittal and coronal reformatted images were obtained from the axial data. CT scan was performed according to ALARA (as low as reasonably achievable). COMPARISON: None. FINDINGS: Diffuse osteopenia noted. Compression fracture is noted along the right side of superior endplate of L3, L4 and L5 vertebrae with about reduced 10%-20% height. Mild compression of T12 vertebra with adjacent sclerosis also seen - MRI correlation suggested The normal lordotic curvature of the lumbar spine is maintained. Lumbar vertebral bodies are maintained in height and alignment. No vertebral estructive changes are seen. Posterior disc osteophyte complex is noted involving L1-L2 to L5-S1 level which indenting ventral thecal sac and causes bilateral lateral recess and neural foraminal narrowing at respective levels. Paravertebral soft tissues are unremarkable. IMPRESSION: Diffuse osteopenia noted. Age indeterminate grade I anterior wedge compression fracture is noted along the right side of superior endplate of L3, L4 and L5 vertebrae with about reduced 10%-20% height. Age indeterminate mild compression of T12 vertebra with adjacent sclerosis also seen - MRI correlation suggested Lumbar spondylosis changes. Electronically signed by Simeon Bergman 07-07-2025 02:09 AM
--- NOTE | 2025-07-07 02:11 | XRay Report ---
EXAM: XR hip LT 2V w pelvis CLINICAL HISTORY: trauma TECHNIQUE: Radiograph of left hip was acquired. COMPARISON: 02/25/2025 14:15:09 AIR CONTROL/ANTI AIR WARFARE OFFICER FINDINGS: Total left hip replacement prosthesis is seen. The visualised bones show decreases bone density. Right hip implant insitu. There is no evidence of acute fracture, dislocation or osseous lesion. Soft tissues are unremarkable. IMPRESSION: 1. Total left hip replacement prosthesis insitu. 2. No significant interval change. Electronically signed by Simeon Bergman 07-07-2025 02:10 AM
[2025-07-07] MEDS: ACETAMINOPHEN 325 MG TAB PO STA (03:16)
[2025-07-07 04:35] LABS: Hematocrit (blood only) 34.9 % (37.0-47.0); Hemoglobin 12.4 g/dL (12.0-16.0); Immature Granulocytes # (auto) 0.04 K/uL (0.01-0.20); Immature Granulocytes % (auto) 0.4 %; Mean Corpuscular Hemoglobin 34.3 pg (25.0-34.0); Mean Corpuscular Volume 96.4 fL (80.0-100.0); Platelet Count 171 K/uL (130-400); RDW Standard Deviation 45.6 fL (36.4-46.3); Red Blood Count 3.62 M/uL (4.20-5.40); White Blood Count 10.72 K/ul (4.8-10.8)
[2025-07-07 04:54] LABS: Alanine Aminotransferase 12.0 U/L (7-52); Albumin Globulin Ratio 1.3 (0.9-2); Albumin Level 3.5 gm/dl (3.4-5.0); Alkaline Phosphatase 74.0 U/L (34-104); Anion Gap 6.0 (3-11); Bilirubin,Total 0.7 mg/dl (0.2-1.0); Blood Urea Nitrogen 22.0 mg/dl (6-23); Calcium 9.1 mg/dl (8.6-10.3); Carbon Dioxide 29.0 mmol/L (21-32); Chloride 104.0 mmol/L (98-107); Creatinine Clr Calc Pharmacy 40.5 ml/min; Globulin 2.8 gm/dl (2.5-4.0); Glucose 134.0 mg/dl (70-99(Fasting)); Potassium 3.5 mmol/L (3.5-5.1); Sodium 139.0 mmol/L (136-145); Total Protein 6.3 gm/dl (6.0-8.3)
--- NOTE | 2025-07-07 05:25 | CT Scan Report ---
EXAM: CT pelvis wo con CLINICAL HISTORY: trauma, ?left pubic rami fx TECHNIQUE: Contiguous axial CT images of pelvis were obtained without intravenous contrast. Coronal and sagittal reconstructions were likewise performed and indicated to increase the sensitivity for detecting clinically relevant pathology. CT scan was performed according to ALARA (as low as reasonably achievable). COMPARISON: 06:40:26 SURVEY DATA TECHNICIAN FINDINGS: Linear displaced fracture of left inferior pubic ramus. Compression fracture is noted along the right side of superior endplate of L3, L4 and L5 vertebrae with about reduced 10%-20% height. Bilateral total hip replacement status without loosening of prosthesis. Cortical irregularities of the left greater trochanter could be old traumatic changes/degenerative changes. Stable. The visualized muscles and tendons appear grossly unremarkable. No cortical destruction to suggest osteomyelitis. No abscess formation. No significant joint effusion. Degenerative changes of the bilateral sacroiliac joints. Stable. There are no soft tissue masses. Normal subcutaneous adipose space. IMPRESSION: Linear displaced fracture of left inferior pubic ramus.-new finding. Likely acute. Bilateral total hip replacement status without loosening of prosthesis.-stable. Compression fracture is noted along the right side of superior endplate of L3, L4 and L5 vertebrae with about reduced 10%-20% height.-new finding. Cortical irregularities of the left greater trochanter could be old traumatic changes/degenerative changes. Stable. Electronically signed by Simeon Bergman 07-07-2025 05:24 AM
[2025-07-07] MEDS: LIDOCAINE 5% 1 PATCH TD STA (05:51)
[2025-07-07] MEDS: SODIUM CHLORIDE 0.9% 500 ML IV SCH (05:51)
[2025-07-07] MEDS ORDERED: MoRPHine SULFATE 2 MG/ML CARP IV PRN (06:56)
--- NOTE | 2025-07-07 07:11 | History & Physical Report ---
Date of Service July 07, 2025 Assessment & Plan (1) Compression fracture of lumbar vertebra: (2) Closed fracture of pubic ramus: (3) CHI (closed head injury): (4) T12 compression fracture: (5) Ground-level fall: Plan: In summary this is an 80-year-old female who presents after a ground-level fall resulting in left inferior pubic ramus displaced fracture that is closed, multiple compression fractures of thoracic and lumbar vertebrae, and a atraumatic closed head injury Patient presents with multiple osteoporotic fractures; continue with calcium and vitamin D replacement therapies for these; given the patient's pubic ramus fracture is slightly displaced, will consult orthopedic surgery for evaluation; there are many patients fractures are nonoperative, consultation with orthotics for TLSO brace Continue acetaminophen 1000 mg p.o. every 8 hours Start ketorolac 15 mg IV every 6 hours scheduled, to be continued through 07/11 or upon discharge, whichever occurs first PT and OT consulted Orthopedic surgery and orthotics consulted The remainder the patient's chronic medical conditions are stable and do not require adjustment to their outpatient regimen at this time History of Present Illness Chief Complaint: Fall with inability to ambulate Primary Care Provider: Maik Angulo MD Ms. Banda is a 80-year-old female whose active medical conditions include essential hypertension, hyperlipidemia, chronic cerebrovascular disease without focal neurologic deficit, previous traumatic injury resulting in need for temporary tracheostomy and PEG tube which have been resolved in addition to medical history of DCIS who presented to [facility] on 07[facility]06 after a fall at their personal care facility. The patient describes that they had gotten home late after visiting with family, attempted to navigate their living room with the lights off using their walker, the walker caught on something resulting in their fall. After their fall they were unable to stand independently or with assistance and was brought to the Medical Center for further evaluation. Allergies Allergy/AdvReac Type Severity Reaction Status Date / Time nickel Allergy Mild Rash Verified 07/07/25 00:57 lisinopril AdvReac Intermediate Dizziness Verified 07/07/25 00:57 Home Medications Medication Instructions Recorded Confirmed Type fluticasone propionate 50 2 spray intranasal QAM 11/19/21 07/07/25 History mcg/actuation nasal spray,suspension (Flonase Allergy Relief) amlodipine 10 mg tablet 5 mg PO QAM 12/21/24 07/07/25 History aspirin 81 mg tablet,delayed 81 mg PO QAM 12/21/24 07/07/25 History release (Steven Low Dose Aspirin) atorvastatin 20 mg tablet 20 mg PO HS 12/21/24 07/07/25 History letrozole 2.5 mg tablet (Femara) 2.5 mg PO QAM 12/21/24 07/07/25 History loratadine 10 mg tablet (Claritin) 10 mg PO QAM 12/21/24 07/07/25 History docusate sodium 50 mg capsule 100 mg PO BID 03/10/25 07/07/25 History vibegron 75 mg tablet (Gemtesa) 75 mg PO QAM 03/10/25 07/07/25 History acetaminophen 500 mg tablet 500 mg PO Q6H PRN PAIN/FEVER 07/07/25 07/07/25 History (Tylenol Extra Strength) aluminum hydrox-magnesium carb 160 2 tab PO QID PRN Indigestion 07/07/25 07/07/25 History mg-105 mg chewable tablet (Acid Gone Antacid Extra Strength) ascorbic acid (vitamin C) 500 mg 500 mg PO HS 07/07/25 07/07/25 History tablet (Vitamin C) calcium 500 mg (as 1 tab PO HS 07/07/25 07/07/25 History carbonate)-vitamin D3 10 mcg (400 unit) tablet (Calcium 500 + D) collagen,hydrolysate 500 mg-biotin 1 cap PO QAM 07/07/25 07/07/25 History 800 mcg-ascorbic acid 50 mg capsule (Collagen 1500 Plus C) cyclobenzaprine 5 mg tablet 5 mg PO Q8H PRN Pain 07/07/25 07/07/25 History guaifenesin 600 mg tablet, 600 mg PO BID 07/07/25 07/07/25 History extended release 12 hr (Mucus Relief ER) ibuprofen 200 mg tablet 400 mg PO Q6H PRN Pain 07/07/25 07/07/25 History levothyroxine 88 mcg tablet 88 mcg PO DAILYBB 07/07/25 07/07/25 History omega-3 fatty acids 1,000 mg 2,000 mg PO HS 07/07/25 07/07/25 History capsule sennosides 8.6 mg tablet (senna) 8.6 mg PO BID 07/07/25 07/07/25 History Past Med/Surg History Problem List (Updated 07/07/25 @ 15:38 by Emil Scherer DO) Ground-level fall T12 compression fracture Compression fracture of lumbar vertebra (Acute) Closed fracture of pubic ramus (Acute) CHI (closed head injury) (Acute) Acute pain of left hip (Acute) Fall (Acute) Urgency of urination Cervical vertebral fracture Head trauma [place] 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 Lesion of bladder Cerebrovascular disease Sensorineural hearing loss (SNHL) of both ears Incontinence (Chronic) Idiopathic polyneuropathy Vitamin D deficiency Neurologic gait disorder Encounter for pre-operative examination S/P total left hip arthroplasty Lymphadenopathy Hip arthritis Hypertension (Acute) Medical History (Updated 07/07/25 @ 15:38 by Emil Scherer DO) Presence of externally removable percutaneous endoscopic gastrostomy (PEG) tube Tracheostomy in place Cervical vertebral fracture (11/09/24) due to fall, treat at [place], per records- pt unable to provide details [place] I fracture of maxilla with nonunion (11/09/24) due to fall Extensive facial fractures with nonunion (11/09/24) had fallen, treated at [facility] Head trauma (11/09/24) due to fall- states no deficits- had trach/peg at [facility] followed by rehab stay, currently home with Cerebrovascular disease Tracheostomy in place wears oxygen at night- unsure of how many liters- states "it's a little mask" Hx: bad fall (11/09/24) life flight to [place], had peg tube/tracheostomy- d/c to rehab facility and d/c home on december 25, 2024 Status post chemotherapy on letrozole daily AMARILIS (obstructive sleep apnea) Per records - home sleep study showed possible mild AMARILIS as well as possible central sleep apnea- scheduled for in hospital sleep study November 2024- update: pt. did not have sleep study yet Idiopathic polyneuropathy left leg Ambulatory dysfunction uses walker related to neuropathy per records Hx of transient ischemic attack (TIA) 2016 > states left leg slighlty weak History of ductal carcinoma in situ (DCIS) of breast 2021 Dizziness Long standing dizziness/chronic per records Overactive bladder GERD (gastroesophageal reflux disease) Pre-diabetes no meds Hypothyroidism Chronic sinusitis Hyperlipidemia Hypertension Labile per records Surgical History Status post tracheostomy (11/2024) had fallen on 11/09/24- life flight to [facility] unsure of further details S/P percutaneous endoscopic gastrostomy (PEG) tube placement (11/2024) had fallen on 11/09/24- life flight to [facility] unsure of further details History of transurethral resection of bladder tumor (TURBT) (08/20/24) Hx of surgical procedure (07/2024) Cyst removed from Bladder History of cataract surgery (2022) bilat History of right hip replacement Hx of lumpectomy Operation Date: 07/18/22 Actual Procedures: p Right Breast Biopsy with Localization Using Zo Contact Agent Marker (Zo Contact Agent 06-21-22), Right [place] Lymph Node Biopsy(Right) - Corby Fernandez DO H/O right breast biopsy (05/24/22) Right Breast Biopsy with Localization Using Zo Contact Agent Marker (Zo Contact Agent 06-21-22), Right [place] Lymph Node Biopsy(Right) - Corby Fernandez DO History of total left hip arthroplasty History of dilatation and curettage S/P hammer toe correction S/P bunionectomy History of colonoscopy (~2023) History of tonsillectomy S/P ORIF (open reduction internal fixation) fracture (1999) left hip pinning (1999) right bipolar hip prosthesis (04/27/17): SAB at L3/4 x1 attempt at [facility] Family History Mother Renal failure Stroke Father Colorectal cancer Heart disease Other No family history of adverse response to anesthesia Social History Smoking Status: Never smoker Second Hand Exposure: No; Do You Dip or Chew Tobacco: No; Hx Alcohol Use: No Hx Substance Use: No Preferred Language: Syriac Communication Ability: Effective Visual Impairment: No Limitations Hearing Ability: Normal Scrap Preparer Required: No Beliefs That Will Affect Care: None marital status: Current Living Situation: Personal Care Facility Current Living Situation Comment: [facility] current occupational status: 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 How many Children do You have: 2 Other Information That Helps Us Care for You: No Feels Safe at Home: Yes Safety Concerns: Feels Safe At This Time Diet: regular during the past year weight has: decreased > 10 lbs Assistive Devices: Glasses and Walker Review of Systems Review of Systems: Review of constitutional, cardiovascular, pulmonary, musculoskeletal, neurologic, integumentary systems was unremarkable except for pertinent positive and negative findings discussed above Physical Exam Physical Exam: General: Elderly female no acute distress Vital Signs: Reviewed HEENT: Moist mucous membranes; pupils equally round and reactive to light, extraocular motion intact Neck: No tenderness to midline palpation of the cervical spine; trachea midline Pulmonary: Symmetric chest wall excursion without restriction; clear to auscultation bilaterally Cardiovascular: Regular rate and rhythm without murmurs, rubs, or gallops; S1 and S2 normal; right radial pulse 2+; no notable lower extremity edema Gastrointestinal: Soft, nontender Musculoskeletal: Tenderness to palpation involving the left ASIS with referred discomfort extending anteriorly along the pubic ramus with reproducible tenderness involving the pubic symphysis; no tenderness along the bilateral greater trochanter or thigh; no reproducible tenderness along the midline lumbar or thoracic spine Neurologic: Cranial nerves II through XII grossly intact; no discernible focal weakness no paresthesia; some slightly diminished strength with resistance testing involving flexion of the left thigh, though not of significant consequence and related to their discomfort rather than neurologic deficit Skin: No appreciable injuries consequential of their fall that led to presentation Results & Data Results & Data Vital Signs (Past 12 Hours) Vital Signs Temp Pulse Pulse Resp BP BP Pulse Ox 07/07/25 04:00 84 12 126/75 96 07/07/25 03:58 77 07/07/25 03:30 97 H 21 153/91 H 96 07/07/25 03:00 90 16 165/89 H 96 07/07/25 02:42 100 H 15 96 07/07/25 02:41 168/89 H 07/07/25 02:00 86 180/98 H 97 07/07/25 01:30 89 18 167/89 H 97 07/07/25 01:00 86 8 L 152/77 H 96 07/07/25 00:51 84 14 94 07/07/25 00:50 84 14 143/79 H 95 07/07/25 00:49 143/79 H 07/07/25 00:40 96 H 07/07/25 00:30 95 H 19 95 07/07/25 00:03 86 16 07/07/25 00:00 162/92 H 07/06/25 23:35 36.9 C 94 H 17 198/117 H 94 O2 Del Method 07/07/25 04:00 07/07/25 03:58 07/07/25 03:30 07/07/25 03:00 07/07/25 02:42 07/07/25 02:41 07/07/25 02:00 07/07/25 01:30 07/07/25 01:00 07/07/25 00:51 07/07/25 00:50 Room Air 07/07/25 00:49 07/07/25 00:40 07/07/25 00:30 07/07/25 00:03 07/07/25 00:00 07/06/25 23:35 Room Air Laboratory Results CBC and CMP are unremarkable Diagnostic Findings CT pelvis without contrast revealed linear displaced fracture of the left inferior pubic ramus; compression fracture of L3, L4, L5, no significant change involving the patient's previous bilateral total hip replacements CT head without contrast did not reveal any significant injury; evidence of chronic cerebral atrophy and microvascular change CT cervical spine without contrast reveals chronic changes without acute fracture or injury Code Status & VTE Plan Code Status DNR/DNI VTE Prophylaxis Plan VTE Prophylaxis will be ordered: Yes PG Care Time/CCT Total # of Minutes Spent Total Time Spent with Patient: Total time spent is greater than 50% in coordination of care (as documented) at patient's floor/unit and/or counseling patient: Coding Level of Care Code 98303 INT INP/OBS CARE 2/55MIN Diagnoses Compression fracture of lumbar vertebra, unspecified lumbar vertebral level, initial encounter S32.000A Encounter type: initial encounter Lumbar vertebra fracture level: unspecified lumbar vertebra Closed fracture of ramus of left pubis, initial encounter S32.592A Encounter type: initial encounter Laterality: left Closed head injury, initial encounter S09.90XA Encounter type: initial encounter Compression fracture of T12 vertebra, initial encounter S22.080A Encounter type: initial encounter Ground-level fall W18.30XA (1) Compression fracture of lumbar vertebra Encounter type: initial encounter Lumbar vertebra fracture level: unspecified lumbar vertebra Qualified Code(s): S32.000A - Wedge compression fracture of unspecified lumbar vertebra, initial encounter for closed fracture (2) Closed fracture of pubic ramus Encounter type: initial encounter Laterality: left Qualified Code(s): S32.592A - Other specified fracture of left pubis, initial encounter for closed fracture (3) CHI (closed head injury) Encounter type: initial encounter Qualified Code(s): S09.90XA - Unspecified injury of head, initial encounter (4) T12 compression fracture Encounter type: initial encounter Qualified Code(s): S22.080A - Wedge compression fracture of T11-T12 vertebra, initial encounter for closed fracture
[2025-07-07] MEDS: ACETAMINOPHEN 500 MG TAB PO STA (10:03)
[2025-07-07] MEDS: KETOROLAC TROMETHAMINE 15 MG/ML VIAL IV ONE (10:04)
[2025-07-07] MEDS ORDERED: HYDROmorphone INJ 0.5 MG/0.5 ML SYR IV PRN (12:15)
[2025-07-07] MEDS: ASPIRIN 81 MG ECTAB PO SCH (12:50)
[2025-07-07] MEDS: VIBEGRON 75 MG TAB PO SCH (12:50)
[2025-07-07] MEDS: ENOXAPARIN INJ 40 MG/0.4 ML SYR SQ SCH (12:50)
[2025-07-07] MEDS: LETROZOLE 2.5 MG TAB PO SCH (15:28)
--- NOTE | 2025-07-07 17:32 | Orthopedic Consultation ---
Date of Consultation July 07, 2025 Assessment & Plan (1) Closed fracture of pubic ramus: IMPRESSION: Left Inferior Rami fracture, essentially non-displaced PLAN: Conservative treatment WBAT PT/OT Continue pain control Continue care per primary service Recommend Ortho spine consult for lumbar (L3, L4, L5) compression fractures F/U in Dr. Day's office in 2 weeks with Pelvis x-rays, 5 views. Present on Admission?: Yes History of Present Illness Reason for Consultation: Left Inferior Rami fracture Requesting Physician: Anahi Day MD Attending Physician: Emil Scherer DO History of Present Illness 80 yo female who sustained a ground level fall walking with her walker and was brought to the ED 07/06/25. She was admitted to the hospitalist service and I was consulted for her left inferior pubic rami fracture. She previously had both her hips replaced by Dr. Newton. Allergies Allergy/AdvReac Type Severity Reaction Status Date / Time nickel Allergy Mild Rash Verified 07/07/25 00:57 lisinopril AdvReac Intermediate Dizziness Verified 07/07/25 00:57 Home Medications Medication Instructions Recorded Confirmed Type fluticasone propionate 50 2 spray intranasal QAM 11/19/21 07/07/25 History mcg/actuation nasal spray,suspension (Flonase Allergy Relief) amlodipine 10 mg tablet 5 mg PO QAM 12/21/24 07/07/25 History aspirin 81 mg tablet,delayed 81 mg PO QAM 12/21/24 07/07/25 History release (Steven Low Dose Aspirin) atorvastatin 20 mg tablet 20 mg PO HS 12/21/24 07/07/25 History letrozole 2.5 mg tablet (Femara) 2.5 mg PO QAM 12/21/24 07/07/25 History loratadine 10 mg tablet (Claritin) 10 mg PO QAM 12/21/24 07/07/25 History docusate sodium 50 mg capsule 100 mg PO BID 03/10/25 07/07/25 History vibegron 75 mg tablet (Gemtesa) 75 mg PO QAM 03/10/25 07/07/25 History acetaminophen 500 mg tablet 500 mg PO Q6H PRN PAIN/FEVER 07/07/25 07/07/25 History (Tylenol Extra Strength) aluminum hydrox-magnesium carb 160 2 tab PO QID PRN Indigestion 07/07/25 07/07/25 History mg-105 mg chewable tablet (Acid Gone Antacid Extra Strength) ascorbic acid (vitamin C) 500 mg 500 mg PO HS 07/07/25 07/07/25 History tablet (Vitamin C) calcium 500 mg (as 1 tab PO HS 07/07/25 07/07/25 History carbonate)-vitamin D3 10 mcg (400 unit) tablet (Calcium 500 + D) collagen,hydrolysate 500 mg-biotin 1 cap PO QAM 07/07/25 07/07/25 History 800 mcg-ascorbic acid 50 mg capsule (Collagen 1500 Plus C) cyclobenzaprine 5 mg tablet 5 mg PO Q8H PRN Pain 07/07/25 07/07/25 History guaifenesin 600 mg tablet, 600 mg PO BID 07/07/25 07/07/25 History extended release 12 hr (Mucus Relief ER) ibuprofen 200 mg tablet 400 mg PO Q6H PRN Pain 07/07/25 07/07/25 History levothyroxine 88 mcg tablet 88 mcg PO DAILYBB 07/07/25 07/07/25 History omega-3 fatty acids 1,000 mg 2,000 mg PO HS 07/07/25 07/07/25 History capsule sennosides 8.6 mg tablet (senna) 8.6 mg PO BID 07/07/25 07/07/25 History Patient History Medical History (Updated 07/07/25 @ 15:38 by Emil Scherer DO) Presence of externally removable percutaneous endoscopic gastrostomy (PEG) tube Tracheostomy in place Cervical vertebral fracture (11/09/24) due to fall, treat at [facility], per records- pt unable to provide details [place] I fracture of maxilla with nonunion (11/09/24) due to fall Extensive facial fractures with nonunion (11/09/24) had fallen, treated at [facility] Head trauma (11/09/24) due to fall- states no deficits- had trach/peg at [facility] followed by rehab stay, currently home with Cerebrovascular disease Tracheostomy in place wears oxygen at night- unsure of how many liters- states "it's a little mask" Hx: bad fall (11/09/24) life flight to [facility], had peg tube/tracheostomy- d/c to rehab facility and d/c home on december 25, 2024 Status post chemotherapy on letrozole daily AMARILIS (obstructive sleep apnea) Per records - home sleep study showed possible mild AMARILIS as well as possible central sleep apnea- scheduled for in hospital sleep study November 2024- update: pt. did not have sleep study yet Idiopathic polyneuropathy left leg Ambulatory dysfunction uses walker related to neuropathy per records Hx of transient ischemic attack (TIA) 2016 > states left leg slighlty weak History of ductal carcinoma in situ (DCIS) of breast 2021 Dizziness Long standing dizziness/chronic per records Overactive bladder GERD (gastroesophageal reflux disease) Pre-diabetes no meds Hypothyroidism Chronic sinusitis Hyperlipidemia Hypertension Labile per records Surgical History Status post tracheostomy (11/2024) had fallen on 11/09/24- life flight to [facility]- pt unsure of further details S/P percutaneous endoscopic gastrostomy (PEG) tube placement (11/2024) had fallen on 11/09/24- life flight to [facility]- pt unsure of further details History of transurethral resection of bladder tumor (TURBT) (08/20/24) Hx of surgical procedure (07/2024) Cyst removed from Bladder History of cataract surgery (2022) bilat History of right hip replacement Hx of lumpectomy Operation Date: 07/18/22 Actual Procedures: p Right Breast Biopsy with Localization Using Zo Director Information Marker (Zo Director Information 06-21-22), Right [place] Lymph Node Biopsy(Right) - Corby Fernandez DO H/O right breast biopsy (05/24/22) Right Breast Biopsy with Localization Using Zo Director Information Marker (Zo Director Information 06-21-22), Right [place] Lymph Node Biopsy(Right) - Corby Fernandez DO History of total left hip arthroplasty History of dilatation and curettage S/P hammer toe correction S/P bunionectomy History of colonoscopy (~2023) History of tonsillectomy S/P ORIF (open reduction internal fixation) fracture (1999) left hip pinning (1999) right bipolar hip prosthesis (04/27/17): SAB at L3/4 x1 attempt at [facility] Family History Mother Renal failure Stroke Father Colorectal cancer Heart disease Other No family history of adverse response to anesthesia Social History Smoking Status: Never smoker Second Hand Exposure: No; Do You Dip or Chew Tobacco: No; Hx Alcohol Use: No Hx Substance Use: No Preferred Language: Citizen Of [place] Communication Ability: Effective Visual Impairment: No Limitations Hearing Ability: Normal Medical Records Supervisor Required: No Beliefs That Will Affect Care: None marital status: Current Living Situation: Personal Care Facility Current Living Situation Comment: [facility] current occupational status: 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 BCR < 2 sec. Able to flex hips, knees, able to wiggle ankle and toes up and down. Limited internal and external rotation hips. + TTP lateral hip/thigh Results & Data Vital Signs (Past 12 Hours) Vital Signs Temp Pulse Pulse Resp BP BP BP 07/07/25 14:50 36.6 C 86 18 131/65 07/07/25 12:16 07/07/25 12:16 36.5 C 93 H 16 190/109 H 192/92 H 07/07/25 11:39 74 16 146/82 H 07/07/25 08:19 87 Pulse Ox O2 Del Method 07/07/25 14:50 98 Room Air 07/07/25 12:16 Room Air 07/07/25 12:16 99 Room Air 07/07/25 11:39 99 Room Air 07/07/25 08:19 Laboratory Results Laboratory Results WBC 10.72 K/ul (4.8-10.8) 07/07/25 04:14 RBC 3.62 M/uL (4.20-5.40) L 07/07/25 04:14 Hgb 12.4 g/dL (12.0-16.0) 07/07/25 04:14 Hct 34.9 % (37.0-47.0) L 07/07/25 04:14 MCV 96.4 fL (80.0-100.0) 07/07/25 04:14 MCH 34.3 pg (25.0-34.0) H 07/07/25 04:14 MCHC 35.5 g/dL (32.0-36.0) 07/07/25 04:14 RDW Std Deviation 45.6 fL (36.4-46.3) 07/07/25 04:14 RDW Coeff of Dalton 12.8 % (11.5-14.5) 07/07/25 04:14 Plt Count 171 K/uL (130-400) 07/07/25 04:14 MPV 10.9 fL (9.4-12.4) 07/07/25 04:14 Immature Gran % (Auto) 0.4 % 07/07/25 04:14 Neut % (Auto) 69.6 % 07/07/25 04:14 Lymph % (Auto) 16.8 % 07/07/25 04:14 [place] % (Auto) 11.5 % 07/07/25 04:14 Eos % (Auto) 1.4 % 07/07/25 04:14 Baso % (Auto) 0.3 % 07/07/25 04:14 Neut # (Auto) 7.47 K/uL (1.40-6.50) H 07/07/25 04:14 Lymph # (Auto) 1.80 K/uL (1.20-3.40) 07/07/25 04:14 [place] # (Auto) 1.23 K/uL (0.11-0.59) H 07/07/25 04:14 Eos # (Auto) 0.15 K/uL (0.00-0.50) 07/07/25 04:14 Baso # (Auto) 0.03 K/uL (0.00-0.20) 07/07/25 04:14 Immature Gran # (Auto) 0.04 K/uL (0.01-0.20) 07/07/25 04:14 Sodium 139 mmol/L (136-145) 07/07/25 04:14 Potassium 3.5 mmol/L (3.5-5.1) 07/07/25 04:14 Chloride 104 mmol/L (98-107) 07/07/25 04:14 Carbon Dioxide 29 mmol/L (21-32) 07/07/25 04:14 Anion Gap 6 (3-11) 07/07/25 04:14 BUN 22 mg/dl (6-23) 07/07/25 04:14 Creatinine 0.77 mg/dl (0.6-1.2) 07/07/25 04:14 Est Cr Clr Drug Dosing 40.5 ml/min 07/07/25 04:14 eGFR 76.97 07/07/25 04:14 BUN/Creatinine Ratio 28.6 (10-20) H 07/07/25 04:14 Glucose 134 mg/dl (70-99(Fasting)) H 07/07/25 04:14 Calcium 9.1 mg/dl (8.6-10.3) 07/07/25 04:14 Total Bilirubin 0.7 mg/dl (0.2-1.0) 07/07/25 04:14 AST 15 U/L (13-39) 07/07/25 04:14 ALT 12 U/L (7-52) 07/07/25 04:14 Alkaline Phosphatase 74 U/L (34-104) 07/07/25 04:14 Total Protein 6.3 gm/dl (6.0-8.3) 07/07/25 04:14 Albumin 3.5 gm/dl (3.4-5.0) 07/07/25 04:14 Globulin 2.8 gm/dl (2.5-4.0) 07/07/25 04:14 Albumin/Globulin Ratio 1.3 (0.9-2) 07/07/25 04:[address] 07/06/25 23:49 EXAM: CT cervical spine wo con CLINICAL HISTORY: trauma TECHNIQUE: Computed tomography of the cervical spine performed without intravenous contrast. Contiguous axial images were obtained from the skull base to T2, with sagittal and coronal reformatted images reconstructed from the axial data. CT scan was performed according to ALARA (as low as reasonable achievable). 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 FINDINGS: Loss of cervical lordosis - suggest possibility of muscle spasm/positional. Degenerative changes involving cervical spine in the form of multilevel marginal osteophytes, disc space reduction and facetal arthrosis. Cervical vertebral bodies are normal in height and alignment, with no evidence of fracture or subluxation. Lateral masses of C1 are symmetrical, and the dens is intact. Prevertebral soft tissues are not widened. The remaining suprahyoid and infrahyoid soft tissues in the neck are unremarkable. Posterior uncovertebral arthrosis is noted at C2-C3 and C5-C6 levels, which indenting ventral thecal sac and causes bilateral neuroforaminal narrowing. Thyroid gland appears unremarkable. IMPRESSION: 1.No acute fracture or subluxation in the cervical spine. 2.Cervical spondylosis.-stable. No other new interval abnormality since prior study. Electronically signed by Simeon Bergman 07-07-2025 01:08 AM Femur X-Ray 07/06/25 23:49 EXAM: XR femur LT 2V routine CLINICAL HISTORY: trauma TECHNIQUE: Radiograph of left proximal femur was acquired. COMPARISON: None. FINDINGS: Total left hip replacement prosthesis is seen. The visualised bones show decreases bone density. No acute fracture or dislocation. No osseous or destructive lesion identified. Knee joint alignment is within normal limits. The soft tissues are unremarkable. IMPRESSION: 1. Total left hip replacement prosthesis insitu. No acute fracture or dislocation. Electronically signed by Simeon Bergman 07-07-2025 02:[address] 07/06/25 23:49 EXAM: CT head/brain wo con CLINICAL HISTORY: trauma TECHNIQUE: Multiple axial images are obtained from the skull base to the vertex without contrast. CT scan was performed according to ALARA (as low as reasonably achievable). COMPARISON: 02/25/2025 14:27:52 SOUND TRUCK OPERATOR . FINDINGS: There is cerebral atrophy. No evidence of space occupying lesion, hemorrhage, edema, mass effect, midline shift, extra axial collection, or hydrocephalus is noted. Basal cisterns are symmetric and normal in size and configuration. There are scattered periventricular hypodensities as can be seen with chronic microvascular ischemic changes. The manzo-white matter differentiation is preserved. Right ethmoid and right maxillary sinusitis. Rest of paranasal sinuses and mastoid air cells are well aerated. Orbital contents are within normal limits. Bony structures are intact. Mild scalp soft tissue thickening seen in left frontal region. IMPRESSION: 1. No evidence of acute intracranial abnormality is demonstrated. 2. Chronic microvascular ischemic changes.-stable. 3. Cerebral atrophy.-stable. Electronically signed by Simeon Bergman 07-07-2025 12:54 AM Hip/Pelvis X-Ray 07/06/25 23:49 EXAM: XR hip LT 2V w pelvis CLINICAL HISTORY: trauma TECHNIQUE: Radiograph of left hip was acquired. COMPARISON: 02/25/2025 14:15:09 SOUND TRUCK OPERATOR FINDINGS: Total left hip replacement prosthesis is seen. The visualised bones show decreases bone density. Right hip implant insitu. There is no evidence of acute fracture, dislocation or osseous lesion. Soft tissues are unremarkable. IMPRESSION: 1. Total left hip replacement prosthesis insitu. 2. No significant interval change. Electronically signed by Simeon Bergman 07-07-2025 02:[address] 07/06/25 23:49 EXAM: CT lumbar spine wo con CLINICAL HISTORY: trauma TECHNIQUE: Multiple contiguous axial images were obtained through the lumbar spine without IV contrast. Sagittal and coronal reformatted images were obtained from the axial data. CT scan was performed according to ALARA (as low as reasonably achievable). COMPARISON: None. FINDINGS: Diffuse osteopenia noted. Compression fracture is noted along the right side of superior endplate of L3, L4 and L5 vertebrae with about reduced 10%-20% height. Mild compression of T12 vertebra with adjacent sclerosis also seen - MRI correlation suggested The normal lordotic curvature of the lumbar spine is maintained. Lumbar vertebral bodies are maintained in height and alignment. No vertebral estructive changes are seen. Posterior disc osteophyte complex is noted involving L1-L2 to L5-S1 level which indenting ventral thecal sac and causes bilateral lateral recess and neural foraminal narrowing at respective levels. Paravertebral soft tissues are unremarkable. IMPRESSION: Diffuse osteopenia noted. Age indeterminate grade I anterior wedge compression fracture is noted along the right side of superior endplate of L3, L4 and L5 vertebrae with about reduced 10%-20% height. Age indeterminate mild compression of T12 vertebra with adjacent sclerosis also seen - MRI correlation suggested Lumbar spondylosis changes. Electronically signed by Simeon Bergman 07-07-2025 02:[address] 07/07/25 03:58 EXAM: CT pelvis wo con CLINICAL HISTORY: trauma, ?left pubic rami fx TECHNIQUE: Contiguous axial CT images of pelvis were obtained without intravenous contrast. Coronal and sagittal reconstructions were likewise performed and indicated to increase the sensitivity for detecting clinically relevant pathology. CT scan was performed according to ALARA (as low as reasonably achievable). 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 Compression fracture is noted along the right side of superior endplate of L3, L4 and L5 vertebrae with about reduced 10%-20% height. Bilateral total hip replacement status without loosening of prosthesis. Cortical irregularities of the left greater trochanter could be old traumatic changes/degenerative changes. Stable. The visualized muscles and tendons appear grossly unremarkable. No cortical destruction to suggest osteomyelitis. No abscess formation. No significant joint effusion. Degenerative changes of the bilateral sacroiliac joints. Stable. There are no soft tissue masses. Normal subcutaneous adipose space. IMPRESSION: Linear displaced fracture of left inferior pubic ramus.-new finding. Likely acute. Bilateral total hip replacement status without loosening of prosthesis.-stable. Compression fracture is noted along the right side of superior endplate of L3, L4 and L5 vertebrae with about reduced 10%-20% height.-new finding. Cortical irregularities of the left greater trochanter could be old traumatic changes/degenerative changes. Stable. Electronically signed by Simeon Bergman 07-07-2025 05:24 AM (1) Closed fracture of pubic ramus Encounter type: initial encounter Laterality: left Qualified Code(s): S32.592A - Other specified fracture of left pubis, initial encounter for closed fracture
[2025-07-07] MEDS: KETOROLAC TROMETHAMINE 15 MG/ML VIAL IV SCH (17:40)
[2025-07-07] MEDS: ATORVASTATIN 20 MG TAB PO SCH (20:35)
[2025-07-07] MEDS: ACETAMINOPHEN 500 MG TAB PO SCH (20:35)
[2025-07-07] MEDS ORDERED: REMOVE LIDODERM PATCH SCH (21:00)
[2025-07-08] MEDS: LEVOTHYROXINE SODIUM 88 MCG TABLET PO SCH (05:35)
--- NOTE | 2025-07-08 08:31 | Hospitalist Progress Note ---
"Date of Service July 08, 2025 Assessment & Plan (1) Compression fracture of lumbar vertebra: (2) Closed fracture of pubic ramus: (3) CHI (closed head injury): (4) T12 compression fracture: (5) Ground-level fall: Plan Ms. Banda is a 80-year-old female whose active medical conditions include essential hypertension, hyperlipidemia, chronic cerebrovascular disease without focal neurologic deficit, previous traumatic injury resulting in need for temporary tracheostomy and PEG tube which have been resolved, and history of DCIS. She sustained a ground level fall when attempting to ambulate her living room with her walker with the lights off. After her fall, she was unable to stand independently or with assistance. Workup in ED revealed a left inferior pubic ramus displaced fracture that is closed, multiple compression fractures of thoracic and lumbar vertebrae, and a atraumatic closed head injury. She was admitted for management of such. #Non-displaced left inferior pubic ramus fracture | L3, L4, L5 compression fractures | T12 compression fracture - lumbar spine CT noted age-indeterminate grade 1 anterior wedge compression fractures along the right side of the superior endplate of L3, L4, and L5 with about 10-20% reduced height. Thoracic spine CT noted acute mild vertebral body compression fracture at T12 - Orthopedic surgery consulted for pubic ramus fracture - nonoperative management. Follow-up with Dr. Day in office in 2 weeks for repeat pelvis x- rays - Ortho spine consulted for vertebral compression fractures - limit weightbearing to 10 pounds lifting - Orthotics consulted for TLSO brace - Continue scheduled Tylenol 1000 mg p.o. Q8H - Continue ketorolac 15 mg IV every 6 hours scheduled, to be continued through 07/11 or upon discharge, whichever occurs first - Continue calcium and vitamin D supplementation - Start calcitonin nasal spray daily x 4 weeks total - Apply lidocaine patch to lumbar spine daily - PT/OT consulted #Hypertensioncontinue propranolol, amlodipine #Hyperlipidemiacontinue atorvastatin #CVDcontinue aspirin 81 mg daily #Overactive bladdercontinue vibegron #History of DCIScontinue letrozole if formulary, otherwise can resume outpatient VTE PPX: Lovenox Dispo: Continued inpatient stay Started lidocaine patch and calcitonin Reviewed prior medical records Discussed plan of care with orthospine Admission and Anticipated Discharge Date Admission Date: July 07, 2025 Subjective Patient seen and evaluated at bedside. She reports her pain is well-controlled at this time. She has not been out of bed today. She is happy that the orthopedics does not think she requires surgical intervention. Still awaiting TLSO brace from orthotics. Therapy evaluations still pending. She reports she has a strong appetite. She is tired today due to not sleeping well overnight. No additional complaints or concerns at this time. Physical Exam Physical Exam: General: No acute distress, nondiaphoretic, well-developed, appears frail. Skin: Warm, dry. No peripheral edema noted. Cardiac: Regular rate and rhythm without murmurs gallops or rubs. Pulm: Clear to auscultation bilaterally without wheezes, rales or rhonchi. Normal respiratory effort. 98% on room air. Abdominal: Soft, nontender, nondistended. Bowel sounds present. MSK: No tenderness to palpation of midline spine or paraspinal musles. Neuro: A&O x3. No focal neurological deficits. Results & Data Results & Data Vital Signs (Past 12 Hours) Vital Signs Temp Pulse Resp BP Pulse Ox O2 Del Method 07/08/25 08:00 97.3 F L 75 17 178/91 H 98 Room Air 07/07/25 22:14 97.3 F L 85 16 146/75 H 94 Room Air Diagnostic Findings Reviewed CT C-spine, femur x-ray, CT head, hip/pelvis x-ray, CT lumbar spine, CT pelvis, CT thoracic spine PG Care Time/CCT Total # of Minutes Spent Total Time Spent with Patient: Total time spent is greater than 50% in coordination of care (as documented) at patient's floor/unit and/or counseling patient: Coding Level of Care Code 05431 SUB INP/OBS CARE 3/50MIN Diagnoses Compression fracture of lumbar vertebra, unspecified lumbar vertebral level, initial encounter S32.000A Encounter type: initial encounter Lumbar vertebra fracture level: unspecified lumbar vertebra Closed fracture of ramus of left pubis, initial encounter S32.592A Encounter type: initial encounter Laterality: left Closed head injury, initial encounter S09.90XA Encounter type: initial encounter Compression fracture of T12 vertebra, initial encounter S22.080A Encounter type: initial encounter Ground-level fall W18.30XA (1) Compression fracture of lumbar vertebra Encounter type: initial encounter Lumbar vertebra fracture level: unspecified lumbar vertebra Qualified Code(s): S32.000A - Wedge compression fracture of unspecified lumbar vertebra, initial encounter for closed fracture (2) Closed fracture of pubic ramus Encounter type: initial encounter Laterality: left Qualified Code(s): S32.592A - Other specified fracture of left pubis, initial encounter for closed fracture (3) CHI (closed head injury) Encounter type: initial encounter Qualified Code(s): S09.90XA - Unspecified injury of head, initial encounter (4) T12 compression fracture Encounter type: initial encounter Qualified Code(s): S22.080A - Wedge compression fracture of T11-T12 vertebra, initial encounter for closed fracture"
[2025-07-08] MEDS: LIDOCAINE 5% 1 PATCH TD SCH (09:49)
[2025-07-08] MEDS: CALCITONIN SALMON NA 200 IU/AC 3.7 ML BTL SCH (09:49)
--- NOTE | 2025-07-08 10:14 | Orthopedic Consultation ---
Date of Service July 08, 2025 Assessment & Plan (1) T12 compression fracture: (2) Compression fracture of lumbar vertebra: (3) Acute pain of left hip: Plan Fractures on lumbar ct appear old, patient has no pain in that area. Possible fracture at T12, also appears old but not fully imaged. Given possible junction fracture will order t spine ct. I discussed possibility of an MRI, she has no neuro symptoms, no back pain, no signs of instability. For asymptomatic compression fracture the treatment would be brace for comfort, limit weight bearing to 10 pounds lifting. MRI would likely not globe changer other than confirming fractures are old, there is no sign of posterior column involvement. Patient is in agreement with avoiding MRI given lack of neuro symptoms, she is at her baseline functionally other than pelvic fracture. Plan may change based on thoracic imaging, I have notified hospitalist team that I am not sales promotion director this week and will be out of town, should the patient develop anything requiring intervention which I find unlikely, would need transfer as we will not have spine coverage this weekend. History of Present Illness Reason for Consultation: compression fractures Requesting Physician: Hospitalist Attending Physician: Carlton Grant MD Patient had ground level fall at assisted living the other evening. She has been doing PT there ever sincer a fall earlier this year. Has a pubic ramus fracture being treated by Dr. Day from this fall, prior AXEL by Dr. Newton. Does not report any back pain, saddle anesthesia, radicular pain. She has some pain over lateral thigh from fall, was already in PT prior to admission for decreased endurance. No bowel/bladder dysfunction. Allergies Allergy/AdvReac Type Severity Reaction Status Date / Time nickel Allergy Mild Rash Verified 07/07/25 00:57 lisinopril AdvReac Intermediate Dizziness Verified 07/07/25 00:57 Home Medications Medication Instructions Recorded Confirmed Type fluticasone propionate 50 2 spray intranasal QAM 11/19/21 07/07/25 History mcg/actuation nasal spray,suspension (Flonase Allergy Relief) amlodipine 10 mg tablet 5 mg PO QAM 12/21/24 07/07/25 History aspirin 81 mg tablet,delayed 81 mg PO QAM 12/21/24 07/07/25 History release (Steven Low Dose Aspirin) atorvastatin 20 mg tablet 20 mg PO HS 12/21/24 07/07/25 History letrozole 2.5 mg tablet (Femara) 2.5 mg PO QAM 12/21/24 07/07/25 History loratadine 10 mg tablet (Claritin) 10 mg PO QAM 12/21/24 07/07/25 History docusate sodium 50 mg capsule 100 mg PO BID 03/10/25 07/07/25 History vibegron 75 mg tablet (Gemtesa) 75 mg PO QAM 03/10/25 07/07/25 History acetaminophen 500 mg tablet 500 mg PO Q6H PRN PAIN/FEVER 07/07/25 07/07/25 History (Tylenol Extra Strength) aluminum hydrox-magnesium carb 160 2 tab PO QID PRN Indigestion 07/07/25 07/07/25 History mg-105 mg chewable tablet (Acid Gone Antacid Extra Strength) ascorbic acid (vitamin C) 500 mg 500 mg PO HS 07/07/25 07/07/25 History tablet (Vitamin C) calcium 500 mg (as 1 tab PO HS 07/07/25 07/07/25 History carbonate)-vitamin D3 10 mcg (400 unit) tablet (Calcium 500 + D) collagen,hydrolysate 500 mg-biotin 1 cap PO QAM 07/07/25 07/07/25 History 800 mcg-ascorbic acid 50 mg capsule (Collagen 1500 Plus C) cyclobenzaprine 5 mg tablet 5 mg PO Q8H PRN Pain 07/07/25 07/07/25 History guaifenesin 600 mg tablet, 600 mg PO BID 07/07/25 07/07/25 History extended release 12 hr (Mucus Relief ER) ibuprofen 200 mg tablet 400 mg PO Q6H PRN Pain 07/07/25 07/07/25 History levothyroxine 88 mcg tablet 88 mcg PO DAILYBB 07/07/25 07/07/25 History omega-3 fatty acids 1,000 mg 2,000 mg PO HS 07/07/25 07/07/25 History capsule sennosides 8.6 mg tablet (senna) 8.6 mg PO BID 07/07/25 07/07/25 History Past Med/Surg History Problem List (Updated 07/07/25 @ 15:38 by Emil Scherer DO) Ground-level fall T12 compression fracture Compression fracture of lumbar vertebra (Acute) Closed fracture of pubic ramus (Acute) CHI (closed head injury) (Acute) Acute pain of left hip (Acute) Fall (Acute) Urgency of urination Cervical vertebral fracture Head trauma 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 Lesion of bladder Cerebrovascular disease Sensorineural hearing loss (SNHL) of both ears Incontinence (Chronic) Idiopathic polyneuropathy Vitamin D deficiency Neurologic gait disorder Encounter for pre-operative examination S/P total left hip arthroplasty Lymphadenopathy Hip arthritis Hypertension (Acute) Medical History (Updated 07/07/25 @ 15:38 by Emil Scherer DO) Presence of externally removable percutaneous endoscopic gastrostomy (PEG) tube Tracheostomy in place Cervical vertebral fracture (11/09/24) due to fall, treat at [facility], per records- pt unable to provide details [place] fracture of maxilla with nonunion (11/09/24) due to fall Extensive facial fractures with nonunion (11/09/24) had fallen, treated at [facility] Head trauma (11/09/24) due to fall- states no deficits- had trach/peg at [facility] followed by rehab stay, currently home with hh Cerebrovascular disease Tracheostomy in place wears oxygen at night- unsure of how many liters- states "it's a little mask" Hx: bad fall (11/09/24) life flight to [facility], had peg tube/tracheostomy- d/c to rehab facility and d/c home on december 25, 2024 Status post chemotherapy on letrozole daily AMARILIS (obstructive sleep apnea) Per records - home sleep study showed possible mild AMARILIS as well as possible central sleep apnea- scheduled for in hospital sleep study November 2024- update: pt. did not have sleep study yet Idiopathic polyneuropathy left leg Ambulatory dysfunction uses walker related to neuropathy per records Hx of transient ischemic attack (TIA) 2016 > states left leg slighlty weak History of ductal carcinoma in situ (DCIS) of breast 2021 Dizziness Long standing dizziness/chronic per records Overactive bladder GERD (gastroesophageal reflux disease) Pre-diabetes no meds Hypothyroidism Chronic sinusitis Hyperlipidemia Hypertension Labile per records Surgical History Status post tracheostomy (11/2024) had fallen on 11/09/24- life flight to [facility]- pt unsure of further details S/P percutaneous endoscopic gastrostomy (PEG) tube placement (11/2024) had fallen on 11/09/24- life flight to [facility]- pt unsure of further details History of transurethral resection of bladder tumor (TURBT) (08/20/24) Hx of surgical procedure (07/2024) Cyst removed from Bladder History of cataract surgery (2022) bilat History of right hip replacement Hx of lumpectomy Operation Date: 07/18/22 Actual Procedures: p Right Breast Biopsy with Localization Using [employer] Rep Marker ([employer] Rep 06-21-22), Right [place] Lymph Node Biopsy(Right) - Corby Fernandez DO H/O right breast biopsy (05/24/22) Right Breast Biopsy with Localization Using [employer] Rep Marker ([employer] Rep 06-21-22), Right [place] Lymph Node Biopsy(Right) - Corby Fernandez DO History of total left hip arthroplasty History of dilatation and curettage S/P hammer toe correction S/P bunionectomy History of colonoscopy (~2023) History of tonsillectomy S/P ORIF (open reduction internal fixation) fracture (1999) left hip pinning (1999) right bipolar hip prosthesis (04/27/17): SAB at L3/4 x1 attempt at [facility] Family History Mother Renal failure Stroke Father Colorectal cancer Heart disease Other No family history of adverse response to anesthesia Social History Smoking Status: Never smoker Second Hand Exposure: No; Do You Dip or Chew Tobacco: No; Hx Alcohol Use: No Hx Substance Use: No Preferred Language: Croatian Communication Ability: Effective Visual Impairment: No Limitations Hearing Ability: Normal Ethnoarchaeology Professor Required: No Beliefs That Will Affect Care: None marital status: Current Living Situation: Personal Care Facility Current Living Situation Comment: [facility] current occupational status: 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 Physical Exam 4/5 strength bilateral hip flexors limited by groin pain. Able to fire quads, tib ant, ehl and GS without deficit SILT L2-S1 dermatomes no t spine or l spine tenderness Results & Data Results & Data Laboratory Results . Diagnostic Findings ct lumbar spine reviewed, old appearing mild compression deformities L3, L4, L5. Mild compression deformity at T12, no retropulsion, no spinous process gapping, no facet involvement. PG Care Time/CCT Total # of Minutes Spent Total Time Spent with Patient: Total time spent is greater than 50% in coordination of care (as documented) at patient's floor/unit and/or counseling patient: Coding Level of Care Code 88969 IN/OBS CONSULT LVL 3,45M Diagnoses Compression fracture of T12 vertebra, initial encounter S22.080A Encounter type: initial encounter Compression fracture of lumbar vertebra, unspecified lumbar vertebral level, initial encounter S32.000A Encounter type: initial encounter Lumbar vertebra fracture level: unspecified lumbar vertebra Acute pain of left hip M25.552 (1) T12 compression fracture Encounter type: initial encounter Qualified Code(s): S22.080A - Wedge compression fracture of T11-T12 vertebra, initial encounter for closed fracture (2) Compression fracture of lumbar vertebra Encounter type: initial encounter Lumbar vertebra fracture level: unspecified lumbar vertebra Qualified Code(s): S32.000A - Wedge compression fracture of unspecified lumbar vertebra, initial encounter for closed fracture
--- NOTE | 2025-07-08 13:38 | CT Scan Report ---
CT thoracic spine wo con CLINICAL HISTORY: Fall COMPARISON STUDY: None FINDINGS: There is osteopenia. There are mild diffuse degenerative changes. There is a mild vertebral body compression fracture at T4 of uncertain chronicity, possibly old. There is a mild vertebral bod y compression fracture at the superior endplate of T12 which has acute to recent subacute appearance. No other fracture or subluxation seen of the thoracic spine. There are a few likely vertebral body h emangiomas at the mid and lower thoracic spine. IMPRESSION: 1. Mild vertebral body compression fracture at T12 appears acute to recent subacute. 2. Mild vertebral body compression fracture at T4 is of uncertain chronicity, possibly old. ACT 112: Negative or not required by law. Electronically signed by: Edinson Raman M.D. 07/08/2025 1:37 PM
--- NOTE | 2025-07-08 18:35 | Orthopedic Progress Note ---
Date of Service July 08, 2025 Assessment & Plan (1) Closed fracture of pubic ramus: Plan: IMPRESSION: Left Inferior Rami fracture, essentially non-displaced PLAN: Conservative treatment WBAT PT/OT Continue pain control Continue care per primary service Recommend Ortho spine consult for lumbar (L3, L4, L5) compression fractures F/U in Dr. Day's office in 2 weeks with Pelvis x-rays, 5 views. Will sign off, please recall if any ortho issues. Admission and Anticipated Discharge Date Admission Date: July 07, 2025 Subjective C/O that she though she would be more mobile and having left hip pain. Physical Exam Physical Exam: Sitting comfortable at bedside leaning to the right. BLE: Sensation to light touch intact. BCR < 2 sec. Able to flex hips, knees, able to wiggle ankle and toes up and down. Limited internal and external rotation hips. + TTP lateral hip/thigh Results & Data Vital Signs (Past 12 Hours) Vital Signs Temp Pulse Resp BP BP Pulse Ox O2 Del Method 07/08/25 14:14 36.3 C L 89 15 160/80 H 91 Room Air 07/08/25 08:00 36.3 C L 75 17 178/91 H 98 Room Air (1) Closed fracture of pubic ramus Encounter type: initial encounter Laterality: left Qualified Code(s): S32.592A - Other specified fracture of left pubis, initial encounter for closed fracture
[2025-07-08] MEDS: REMOVE LIDODERM PATCH SCH (21:21)
[2025-07-09 06:26] LABS: Hematocrit (blood only) 39.6 % (37.0-47.0); Hemoglobin 13.8 g/dL (12.0-16.0); Mean Corpuscular Hemoglobin 33.9 pg (25.0-34.0); Mean Corpuscular Volume 97.3 fL (80.0-100.0); Platelet Count 179 K/uL (130-400); RDW Standard Deviation 45.0 fL (36.4-46.3); Red Blood Count 4.07 M/uL (4.20-5.40); White Blood Count 6.81 K/ul (4.8-10.8)
[2025-07-09 06:46] LABS: Anion Gap 8.0 (3-11); Blood Urea Nitrogen 19.0 mg/dl (6-23); Calcium 8.9 mg/dl (8.6-10.3); Carbon Dioxide 29.0 mmol/L (21-32); Chloride 104.0 mmol/L (98-107); Creatinine Clr Calc Pharmacy 44.5 ml/min; Glucose 117.0 mg/dl (70-99(Fasting)); Potassium 3.7 mmol/L (3.5-5.1); Sodium 141.0 mmol/L (136-145)
--- NOTE | 2025-07-09 09:35 | Hospitalist Progress Note ---
"Date of Service July 09, 2025 Assessment & Plan (1) Compression fracture of lumbar vertebra: (2) Closed fracture of pubic ramus: (3) CHI (closed head injury): (4) T12 compression fracture: (5) Ground-level fall: Plan 80 y/o F w/ PMHx of HTN, HLD, chronic cerebrovascular disease without focal neurologic deficit, previous traumatic injury resulting temporary tracheostomy + PEG tube (no resolved), and history of DCIS. She sustained a ground level fall when attempting to ambulate her living room with her walker with the lights off. After her fall, she was unable to stand independently or with assistance. Workup in ED revealed a left inferior pubic ramus displaced fracture that is closed, multiple compression fractures of thoracic and lumbar vertebrae, and a atraumatic closed head injury. Pt was admitted for further evaluation and care. #Non-displaced left inferior pubic ramus fracture | L3, L4, L5 compression fractures | T12 compression fracture - lumbar spine CT noted age-indeterminate grade 1 anterior wedge compression fractures along the right side of the superior endplate of L3, L4, and L5 with about 10-20% reduced height. Thoracic spine CT noted acute mild vertebral body compression fracture at T12 - Orthopedic surgery consulted for pubic ramus fracture - nonoperative management. Follow-up with Dr. Day in office in 2 weeks for repeat pelvis x- rays - Ortho spine consulted for vertebral compression fractures - limit weig htbearing to 10 pounds lifting - Orthotics consulted for TLSO brace - Continue scheduled Tylenol 1000 mg p.o. Q8H - Continue ketorolac 15 mg IV every 6 hours scheduled, to be continued through 07/11 or upon discharge, whichever occurs first - Continue calcium and vitamin D supplementation - Start calcitonin nasal spray daily x 4 weeks total - Apply lidocaine patch to lumbar spine daily - PT/OT consulted #Hypertensioncontinue propranolol, amlodipine #Hyperlipidemiacontinue atorvastatin #CVDcontinue aspirin 81 mg daily #Overactive bladdercontinue vibegron #History of DCIScontinue letrozole if formulary, otherwise can resume outpatient VTE PPX: Lovenox Dispo: Med/Surg - will need continued PT/OT evals, will likely need d/c to SNF pending further evaluations Admission and Anticipated Discharge Date Admission Date: July 07, 2025 Subjective Pt was laying in bed today in NAD. She notes that her pain has continued to improve. Pt notes that she had some pain during her therapy session, especially when it comes to weight bearing. She states that it is her hope to return back to [facility] following discharge. Pt's pain overall is well controlled with toradol. Pt denies cough, congestion, sore throat, CP, SOB, Palpitations, H/A, abd pain/discomfort, N/V/D. Review of Systems Review of Systems: All systems reviewed & are unremarkable except as noted in Subjective Physical Exam Physical Exam: General: Pt is a 80 y/o WD/WN F in NAD in bed. VS: reviewed - remarkable - BP 158/83 Skin: Warm and dry; no lesions or ulcerations Respiratory: CTA bilat, no adventitious sounds noted. Chest expansion is full and symmetrical Cardio: RRR no murmurs Abdomen: Round, normoactive BS x4, nontender to palpation MSK: FROM of extremities, no deformities Extremities: no edema Neuro: A&Ox4, cooperative; sensation intact and equal to lower extremities bilat Results & Data Results & Data Vital Signs (Past 12 Hours) Vital Signs Temp Pulse Resp BP Pulse Ox O2 Del Method 07/09/25 08:58 Room Air 07/09/25 07:09 97.3 F L 78 18 158/83 H 96 Room Air 07/08/25 23:25 73 172/89 H 07/08/25 22:40 97.5 F L 81 16 192/88 H 98 Room Air Laboratory Results Reviewed: CBC, BMP PG Care Time/CCT Total # of Minutes Spent Total Time Spent with Patient: Total time spent is greater than 50% in coordination of care (as documented) at patient's floor/unit and/or counseling patient: Coding Level of Care Code 70987 SUB INP/OBS CARE 2/35MIN Diagnoses Compression fracture of lumbar vertebra, unspecified lumbar vertebral level, initial encounter S32.000A Encounter type: initial encounter Lumbar vertebra fracture level: unspecified lumbar vertebra Closed fracture of ramus of left pubis, initial encounter S32.592A Encounter type: initial encounter Laterality: left Closed head injury, initial encounter S09.90XA Encounter type: initial encounter Compression fracture of T12 vertebra, initial encounter S22.080A Encounter type: initial encounter Ground-level fall W18.30XA (1) Compression fracture of lumbar vertebra Encounter type: initial encounter Lumbar vertebra fracture level: unspecified lumbar vertebra Qualified Code(s): S32.000A - Wedge compression fracture of unspecified lumbar vertebra, initial encounter for closed fracture (2) Closed fracture of pubic ramus Encounter type: initial encounter Laterality: left Qualified Code(s): S32.592A - Other specified fracture of left pubis, initial encounter for closed fracture (3) CHI (closed head injury) Encounter type: initial encounter Qualified Code(s): S09.90XA - Unspecified injury of head, initial encounter (4) T12 compression fracture Encounter type: initial encounter Qualified Code(s): S22.080A - Wedge com pression fracture of T11-T12 vertebra, initial encounter for closed fracture"
--- NOTE | 2025-07-10 09:00 | Hospitalist Progress Note ---
"Date of Service July 10, 2025 Assessment & Plan (1) Compression fracture of lumbar vertebra: (2) Closed fracture of pubic ramus: (3) CHI (closed head injury): (4) T12 compression fracture: (5) Ground-level fall: Plan 80 y/o F w/ PMHx of HTN, HLD, chronic cerebrovascular disease without focal neurologic deficit, previous traumatic injury resulting temporary tracheostomy + PEG tube (no resolved), and history of DCIS. She sustained a ground level fall when attempting to ambulate her living room with her walker with the lights off. After her fall, she was unable to stand independently or with assistance. Workup in ED revealed a left inferior pubic ramus displaced fracture that is closed, multiple compression fractures of thoracic and lumbar vertebrae, and a atraumatic closed head injury. Pt was admitted for further evaluation and care. #Non-displaced left inferior pubic ramus fracture | L3, L4, L5 compression fractures | T12 compression fracture - lumbar spine CT noted age-indeterminate grade 1 anterior wedge compression fractures along the right side of the superior endplate of L3, L4, and L5 with about 10-20% reduced height. Thoracic spine CT noted acute mild vertebral body compression fracture at T12 - Orthopedic surgery consulted for pubic ramus fracture - nonoperative management. Follow-up with Dr. Day in office in 2 weeks for repeat pelvis x- rays - Ortho spine consulted for vertebral compression fractures - limit weig htbearing to 10 pounds lifting - Orthotics consulted for TLSO brace - Continue scheduled Tylenol 1000 mg p.o. Q8H - Continue ketorolac 15 mg IV every 6 hours scheduled, to be continued through 07/11 or upon discharge, whichever occurs first - Continue calcium and vitamin D supplementation - Start calcitonin nasal spray daily x 4 weeks total - Apply lidocaine patch to lumbar spine daily #Confusion - daughter notes this is common for pt when she is in the hospital; Electrolytes nonconcerning - UA on 07/10, overall noninfectious #Hypertensioncontinue propranolol, amlodipine #Hyperlipidemiacontinue atorvastatin #CVDcontinue aspirin 81 mg daily #Overactive bladdercontinue vibegron #History of DCIScontinue letrozole if formulary, otherwise can resume outpatient VTE PPX: Lovenox Dispo: Med/Surg - PT/OT recommending rehab, will discuss further with case management July 11 Admission and Anticipated Discharge Date Admission Date: July 09, 2025 Subjective patient was laying in bed today in NAD daughter at bedside. Patient notes that she is experiencing some left leg pain today but it was noted by her nurse that she received her dose of Toradol late. Patient's pain resolved after receiving dose of Toradol. discussed current discharge plan with daughter who notes that [facility] had agreed to her to take the patient back despite patient's higher level of physical therapy need. Discussed with patient's daughter that [facility] does not typically do that but will discuss patient's conversation with [facility] with home health on July 11, 2025. Daughter notes that patient typically becomes a bit delirious when in the hospital due to continuously changing schedules and she is hopeful to have patient return home as soon as possible. Patient otherwise denies sore throat, cough, congestion, SOB, CP, palpitations, abdominal pain/discomfort, N/V/D, changes in appetite. Review of Systems Review of Systems: All systems reviewed & are unremarkable except as noted in Subjective Physical Exam Physical Exam: General: Pt is a 80 y/o WD/WN F in NAD in bed. VS: reviewed - remarkable - BP 158/83 Skin: Warm and dry; no lesions or ulcerations Respiratory: CTA bilat, no adventitious sounds noted. Chest expansion is full and symmetrical Cardio: RRR no murmurs Abdomen: Round, normoactive BS x4, nontender to palpation MSK: FROM of extremities, no deformities Extremities: no edema Neuro: A&Ox3, cooperative; sensation intact and equal to lower extremities bilat Results & Data Results & Data Vital Signs (Past 12 Hours) Vital Signs Temp Pulse Resp BP Pulse Ox O2 Del Method 07/10/25 07:30 Room Air 07/10/25 07:30 97.6 F 83 18 154/88 H 97 Room Air 07/09/25 21:51 98.1 F 79 16 136/66 96 Room Air Laboratory Results Reviewed: CBC, BMP PG Care Time/CCT Total # of Minutes Spent Total Time Spent with Patient: Total time spent is greater than 50% in coordination of care (as documented) at patient's floor/unit and/or counseling patient: Coding Level of Care Code 10910 SUB INP/OBS CARE 2/35MIN Diagnoses Compression fracture of lumbar vertebra, unspecified lumbar vertebral level, initial encounter S32.000A Encounter type: initial encounter Lumbar vertebra fracture level: unspecified lumbar vertebra Closed fracture of ramus of left pubis, initial encounter S32.592A Encounter type: initial encounter Laterality: left Closed head injury, initial encounter S09.90XA Encounter type: initial encounter Compression fracture of T12 vertebra, initial encounter S22.080A Encounter type: initial encounter Ground-level fall W18.30XA (1) Compression fracture of lumbar vertebra Encounter type: initial encounter Lumbar vertebra fracture level: unspecified lumbar vertebra Qualified Code(s): S32.000A - Wedge compression fracture of unspecified lumbar vertebra, initial encounter for closed fracture (2) Closed fracture of pubic ramus Encounter type: initial encounter Laterality: left Qualified Code(s): S32.592A - Other specified fracture of left pubis, initial encounter for closed fracture (3) CHI (closed head injury) Encounter type: initial encounter Qualified Code(s): S09.90XA - Unspecified injury of head, initial encounter (4) T12 compression fracture Encounter type: initial encounter Qualified Code(s): S22.080A - Wedge compression fracture of T11-T12 vertebra, initial encounter for closed fracture"
[2025-07-10 14:33] LABS: Appearance Urine Clear (Clear); Bacteria Urine Automated 3+ (None Seen); Cast Urine Automated 0-2 /lpf (0-2); Epithelial Cell Urine Auto 0-2 /hpf (0-2); Glucose Urine UA Negative (Negative); RBC Urine Automated 0-2 /hpf (0-2); WBC Urine Automated 0-5 /hpf (0-5)
[2025-07-11 10:54] LABS: Hematocrit (blood only) 37.6 % (37.0-47.0); Hemoglobin 12.8 g/dL (12.0-16.0); Immature Granulocytes # (auto) 0.01 K/uL (0.01-0.20); Immature Granulocytes % (auto) 0.1 %; Mean Corpuscular Hemoglobin 33.6 pg (25.0-34.0); Mean Corpuscular Volume 98.7 fL (80.0-100.0); Platelet Count 196 K/uL (130-400); RDW Standard Deviation 46.5 fL (36.4-46.3); Red Blood Count 3.81 M/uL (4.20-5.40); White Blood Count 7.17 K/ul (4.8-10.8)
[2025-07-11 11:06] LABS: Anion Gap 6.0 (3-11); Blood Urea Nitrogen 33.0 mg/dl (6-23); Calcium 8.8 mg/dl (8.6-10.3); Carbon Dioxide 30.0 mmol/L (21-32); Chloride 103.0 mmol/L (98-107); Creatinine Clr Calc Pharmacy 41.5 ml/min; Glucose 130.0 mg/dl (70-99(Fasting)); Potassium 3.7 mmol/L (3.5-5.1); Sodium 139.0 mmol/L (136-145)
[2025-07-11 15:16] VITALS: BP 118/69; PULSE 89; RESP 19; TEMP 97.9; O2SAT 97
--- NOTE | 2025-07-11 17:39 | Discharge Summary ---
"Discharge Summary Date of Service July 11, 2025 Principal Dx & Hospital Course #1 = Principal Diagnosis (1) Compression fracture of lumbar vertebra: (2) Closed fracture of pubic ramus: (3) CHI (closed head injury): (4) T12 compression fracture: (5) Ground-level fall: Plan #Non-displaced left inferior pubic ramus fracture | L3, L4, L5 compression fractures | T12 compression fracture - 80 y/o F w/ PMHx of HTN, HLD, chronic cerebrovascular disease without focal neurologic deficit, previous traumatic injury resulting temporary tracheostomy + PEG tube (no resolved), and history of DCIS. She sustained a ground level fall when attempting to ambulate her living room with her walker with the lights off. After her fall, she was unable to stand independently or with assistance. Workup in ED via lumbar spine CT noted age-indeterminate grade 1 anterior wedge compression fractures along the right side of the superior endplate of L3, L4, and L5 with about 10-20% reduced height. Thoracic spine CT noted acute mild vertebral body compression fracture at T12. Pt was admitted to [facility] where Orthopedic Surgery was consulted for the inferior pubic ramus fracture and suggested Non-operative follow-up. Add itionally, Orthopedic spine surgery was consulted for the vertebral compression fx and recommended that the pt doesn't lift more than 10lbs at a time. Orthotics had been consulted to provide a TLSO brace for the patient. Pt should continue Vitamin D + Calcium supplementation. Pt should also continue Calcitonin Nasal spray for a total of 4 wks of therapy with a stop date of 08/07/2025. Pt can continue to take Tylenol as needed for pain. Pt can additionally apply a lidocaine patch to lumbar spine to aid in pain relief. Pt should follow-up with Dr. Day in office in 2 weeks for repeat pelvis x-rays #Confusion - daughter notes this is common for pt when she is in the hospital; UA on 07/10 was overall noninfectious #Hypertensioncontinue propranolol, amlodipine #Hyperlipidemiacontinue atorvastatin #CVDcontinue aspirin 81 mg daily #Overactive bladdercontinue vibegron #History of DCIScontinue letrozole Dispo: [facility] for continued therapy Admission HPI Per Admitting Provider Ms. Banda is a 80-year-old female whose active medical conditions include essential hypertension, hyperlipidemia, chronic cerebrovascular disease without focal neurologic deficit, previous traumatic injury resulting in need for temporary tracheostomy and PEG tube which have been resolved in addition to medical history of DCIS who presented to the [facility] on 07/[facility] after a fall at their personal care facility. The patient describes that they had gotten home late after visiting with family, attempted to navigate their living room with the lights off using their walker, the walker caught on something resulting in their fall. After their fall they were unable to stand independently or with assistance and was brought to the [facility] for further evaluation. Discharge Exam General: Pt is a 80 y/o WD/WN F in NAD sitting at bedside. VS: reviewed - BP elevation resolved with pain management 118/69 on discharge Skin: Warm and dry; no lesions or ulcerations Respiratory: CTA bilat, no adventitious sounds noted. Chest expansion is full and symmetrical Cardio: RRR no murmurs Abdomen: Round, normoactive BS x4, nontender to palpation MSK: FROM of extremities, no deformities Extremities: no edema Neuro: A&Ox3, cooperative; sensation intact and equal to lower extremities bilat Discharge Plan Discharge Items Patient Disposition: Personal Residential Reason For Visit: FALL, INABILITY TO AMBULATE Discharge Diagnosis: Non-displaced left inferior pubic ramus fracture | L3, L4, L5 compression fractures | T12 compression fracture Condition on Discharge: Fair Activity: Per Instructions section Lifting: No more than 10 pounds Non-emergency contact: Surgeon Call non-emergency contact if: your pain is not controlled and your pain is worsening Follow-up/Referrals: Deepa Rivera PA-C [Physician Care Taker] - 08/09/25 9:30 am Maik Angulo MD [Primary Care Provider] - (Follow up within 1 wk) Diet: Heart Healthy Addtl Attending Provider Instructions: You were admitted to the hospital for a Non-displaced left inferior pubic ramus fracture as well as compression fractures of L3, L4, L5 and T12 of the bones in your spine that were confirmed via CT scans in the ED. You were then admitted to the hospital for further evaluation and care. Orthopedic Spine surgery was consulted in relation to your inferior pubic ramus fracture and suggested non- operative management. Additionally, Orthopedic spine surgery was consulted for the vertebral compression fx and recommended that the pt doesn't lift more than 10lbs at a time. Orthotics had been consulted to provide a TLSO brace for the patient. You should continue Vitamin D + Calcium supplementation. It's important that you complete a total of four weeks of Calcitonin Nasal spray with a stop date of 08/07/2025. Please use a lidocaine patch on your lower back as needed for pain. You can additionally take Tylenol and Ibuprofen as needed for pain. Please follow up with Dr. Day in office in 2 weeks for repeat pelvis x-rays. Additional instructions have been left by orthopedics and are listed below. Medications: Your medication list has been reviewed and reconciled upon discharge to ensure accuracy and continuity of care. An updated list of all your medications is in cluded with your hospital discharge paperwork. Please review this list closely, and make note of any changes. Lidocaine Patches were sent to your pharmacy. Apply as directed to the Lumbar spine. Calcitonin nasal spray was sent to your pharmacy. Please spray in nostril as directed until 08/07. We sent a new medication called Tylenol to your pharmacy. Take 4 times a day as needed for pain. Start this tonight, this is meant to help with your mild/moderate pain. We sent a new medication called Ibuprofen to your pharmacy. Take 4 times a day as needed for pain. Start this tonight, this is meant to help with your moderate/severe pain. Take your medications as instructed; do not skip a dose of your medicines. Make sure all of your doctors know every medicine you are taking (including itll-gkk-[id number] medicines, vitamins, and supplements). Call your primary care provider before taking any new medicines (including over- the-counter medicines, vitamins, and supplements), because some of these may interact with your current medications, or may make your symptoms worse. Tell your primary care provider if you cannot afford your medications. Activity: Please follow the activity directions as provided to you by your orthopedic doctor as well as your physical and occupational therapy teams. Do not lift more than 10 pounds of weight as directed. Follow-up appointments: Make an appointment with your primary care physician within one week of discharge. A copy of this summary will be sent to them. Every time you see your primary care physician, or any other doctor, bring your medication list, and a list of questions. CONTACT YOUR PRIMARY CARE PROVIDER if you experience any of the following: Shortness of breath or difficulty breathing Fevers or chills Feeling tired with normal activity or experiencing dizziness or fainting Difficulty following your treatment plan, or difficulty taking medications CALL 911 OR GO TO THE EMERGENCY DEPARTMENT if you experience any of the following: Severe or sudden worsening pain or pain that is uncontrolled Severe chest pain, or chest pain that radiates (moves) to your jaw or arm Sudden, severe shortness of breath or difficulty breathing Thank you for allowing us to participate in your care. Addtl Parts Room Assistant Provider Instructions: Orthopedic instructions: Weight-bear as tolerated with the assistance of a walker. May do hip range of motion as tolerated on both hips. Ice to left hip or groin as needed for pain or swelling. May advance activities as tolerated. Tylenol and/or ibuprofen as needed for discomfort. Call [phone] with any increased pain, questions, concerns or need to reschedule and confirm your appointment. Follow-up as scheduled with [facility] orthopedics in approximately 4 weeks for repeat x-rays and evaluation. Pending Studies at Discharge: No Stand-Alone Forms: My eReceipts, Smoking Cessation Skilled Items Patient informed of condition?: Yes DNR: No Discharge Level of Care: Other Communicable Disease: No Discharge Prognosis: Stable Lines: None Urinary Catheter: No Medications and DC Order Prescriptions: New acetaminophen 500 mg capsule 500 mg PO Q6H PRN (Reason: pain) 30 Days Qty: 120 0RF ibuprofen 400 mg tablet 400 mg PO Q8H PRN (Reason: pain) 30 Days Qty: 90 0RF lidocaine 5 % adhesive patch,medicated 1 patch topical DAILY 30 Days Qty: 30 0RF Rx Instructions: leave on most painful area for up to 12 hrs calcitonin (salmon) 200 unit/actuation [place],Non-Aerosol 1 spray NA DAILY Qty: 27 0RF Continued amlodipine 10 mg tablet 5 mg PO QAM Rx Instructions: HOLD FOR SBP <100 OR DBP < 60 fluticasone propionate [Flonase Allergy Relief] 50 mcg/actuation [place],Suspension 2 spray INTRANASAL QAM atorvastatin 20 mg tablet 20 mg PO HS loratadine [Claritin] 10 mg tablet 10 mg PO QAM aspirin [Steven Low Dose Aspirin] 81 mg tablet,delayed release (DR/EC) 81 mg PO QAM Rx Instructions: Take to prevent blood clots. letrozole [Femara] 2.5 mg tablet 2.5 mg PO QAM docusate sodium 50 mg Capsule 100 mg PO BID Gemtesa 75 mg tablet 75 mg PO QAM sennosides [senna] 8.6 mg Tablet 8.6 mg PO BID omega-3 fatty acids 1,000 mg Capsule 2,000 mg PO HS acetaminophen [Tylenol Extra Strength] 500 mg Tablet 500 mg PO Q6H PRN (Reason: PAIN/FEVER) levothyroxine 88 mcg tablet 88 mcg PO DAILYBB ascorbic acid (vitamin C) [Vitamin C] 500 mg Tablet 500 mg PO HS ibuprofen 200 mg Tablet 400 mg PO Q6H PRN (Reason: Pain) Acid Gone Antacid E.Strength 160-105 mg Tablet,Chewable 2 tab PO QID PRN (Reason: Indigestion) calcium carbonate-vitamin D3 [Calcium 500 + D] 500 mg-10 mcg (400 unit) Tablet 1 tab PO HS guaifenesin [Mucus Relief ER] 600 mg Tablet Extended Release 12hr 600 mg PO BID Collagen 1500 Plus C 500 mg-800 mcg- 50 mg Capsule 1 cap PO QAM cyclobenzaprine 5 mg tablet 5 mg PO Q8H PRN (Reason: Pain) Discharge Orders: Discharge Order (Routine); Ordered 07/11/25 Ordered By: Lyric Hayden Admission Data Admit Date/Time: 07/09/25 14:18 Attending Provider: Kristyn Mancuso Admit Provider: Emil Scherer Primary Care Provider: Maik Angulo Other Providers: Emil Scherer; Tye Day; Serafin White; Jorge Leon; Bibiana Myers; María Pacheco; Yuan Price.; Dallin Mcfadden; Maxi Peres; Yuan Myers Hospital Stay Data Consultations 07/07/25 07:19 ED Decision to Admit Stat 07/07/25 15:28 Consult Orthopedic Surgery Routine 07/07/25 18:07 Consult Orthopedic Spine Surgery Routine Diagnostic Imagining Performed 07/06/25 23:49 CT cervical spine wo con Stat CT head/brain wo con Stat CT lumbar spine wo con Stat 07/07/25 03:58 CT pelvis wo con Stat 07/08/25 12:13 CT thoracic spine wo con Routine Discharge Instructions Given to Patient (Per Discharging Provider) You were admitted to the hospital for a Non-displaced left inferior pubic ramus fracture as well as compression fractures of L3, L4, L5 and T12 of the bones in your spine that were confirmed via CT scans in the ED. You were then admitted to the hospital for further evaluation and care. Orthopedic Spine surgery was consulted in relation to your inferior pubic ramus fracture and suggested non- operative management. Additionally, Orthopedic spine surgery was consulted for the vertebral compression fx and recommended that the pt doesn't lift more than 10lbs at a time. Orthotics had been consulted to provide a TLSO brace for the patient. You should continue Vitamin D + Calcium supplementation. It's important that you complete a total of four weeks of Calcitonin Nasal spray with a stop date of 08/07/2025. Please use a lidocaine patch on your lower back as needed for pain. You can additionally take Tylenol and Ibuprofen as needed for pain. Please follow up with Dr. Day in office in 2 weeks for repeat pelvis x-rays. Additional instructions have been left by orthopedics and are listed below. Medications: Your medication list has been reviewed and reconciled upon discharge to ensure accuracy and continuity of care. An updated list of all your medications is included with your hospital discharge paperwork. Please review this list closely, and make note of any changes. Lidocaine Patches were sent to your pharmacy. Apply as directed to the Lumbar spine. Calcitonin nasal spray was sent to your pharmacy. Please spray in nostril as directed until 08/07. We sent a new medication called Tylenol to your pharmacy. Take 4 times a day as needed for pain. Start this tonight, this is meant to help with your mild/moderate pain. We sent a new medication called Ibuprofen to your pharmacy. Take 4 times a day as needed for pain. Start this tonight, this is meant to help with your moderate/severe pain. Take your medications as instructed; do not skip a dose of your medicines. Make sure all of your doctors know every medicine you are taking (including vsdl-jxj-pqfcuqw medicines, vitamins, and supplements). Call your primary care provider before taking any new medicines (including over- the-counter medicines, vitamins, and supplements), because some of these may interact with your current medications, or may make your symptoms worse. Tell your primary care provider if you cannot afford your medications. Activity: Please follow the activity directions as provided to you by your orthopedic doctor as well as your physical and occupational therapy teams. Do not lift more than 10 pounds of weight as directed. Follow-up appointments: Make an appointment with your primary care physician within one week of discharge. A copy of this summary will be sent to them. Every time you see your primary care physician, or any other doctor, bring your medication list, and a list of questions. CONTACT YOUR PRIMARY CARE PROVIDER if you experience any of the following: Shortness of breath or difficulty breathing Fevers or chills Feeling tired with normal activity or experiencing dizziness or fainting Difficulty following your treatment plan, or difficulty taking medications CALL 911 OR GO TO THE EMERGENCY DEPARTMENT if you experience any of the following: Severe or sudden worsening pain or pain that is uncontrolled Severe chest pain, or chest pain that radiates (moves) to your jaw or arm Sudden, severe shortness of breath or difficulty breathing Thank you for allowing us to participate in your care. Total Time Total Time Spent Total Time Spent (In Minutes): Time spent day of discharge 60 minutes including direct patient care, medication reconciliation, documentation, review of labs and images, and coordination of care. Coding Level of Care Code 97178 INP/OBS DISCH >30 MIN Diagnoses Compression fracture of lumbar vertebra, unspecified lumbar vertebral level, initial encounter S32.000A Encounter type: initial encounter Lumbar vertebra fracture level: unspecified lumbar vertebra Closed fracture of ramus of left pubis, initial encounter S32.592A Encounter type: initial encounter Laterality: left Closed head injury, initial encounter S09.90XA Encounter type: initial encounter Compression fracture of T12 vertebra, initial encounter S22.080A Encounter type: initial encounter Ground-level fall W18.30XA"
== END 2025-07-11 19:15 | disposition home or self-care (01) | DRG 544 ==
LOC: 3N 23:36 → ED 23:36 → SUATTDRO 07-07 07:08 → 3N 07-07 11:39 → SUATTDRO 07-09 14:18